=== PATIENT | male | born 1955 | race Caucasian/White ===

== ENCOUNTER → 2017-10-09 | Outpatient (CLI) | payer MEDICARE ==
[~2017-10-09] MED LIST: AMLO5TAB2 PO; ATOR40TA59 PO; CLON1TAB3 PO; DICL75TA PO; IOHEXOL 180 MG/ML 10 ML VIAL. ONE; LISI-338 PO; METO25TA4 PO; OMEP40CA5 PO; PRIM250T PO; methylPREDNISolone ACETATE 40 MG/ML VIAL. ONE; methylPREDNISolone ACETATE 80 MG/ML VIAL. ONE
--- NOTE | 2017-10-09 19:46 | PAIN ---
DATE OF SERVICE: 10/09/2017 INITIAL CONSULTATION FOR PAIN CLINIC CHIEF COMPLAINT: Neck and upper back pain with bilateral shoulder pain. HISTORY OF PRESENT ILLNESS: This is a 62-year-old male who presents with history of pain in the base of the neck, shoulders bilaterally, also some headaches, posterior occipital pain. Pain radiated to mid upper back as well for about 20 years, worse over the last year or so with increased pain with rotational movement of cervical spine, especially extension, better with forward flexion. The patient reports the pain has been becoming worse, radiating into the bilateral upper extremities, causing some numbness in the left hand greater than the right hand, but also dropping some items, having difficulty with fine motor movements of the fingers and thumb. The patient reports no complete loss of function, but having some significant difficulty with fatigability and fine motor movements of hands. The patient reports the pain is tingling with numbness and radiation as described in both upper extremities. It changes during the day, worse as the day goes by. Also, painful in the morning, constant, sharp, stabbing, shooting and aching. The patient reports it wakes him sleep about 4 times a night. He likes to sleep on his left side which makes it worse on the left side. The patient reports it does not affect his bowel or bladder control and does not affect his ability to walk. He has been taking Naprosyn as well as aspirin, both of which only helped for a very small amount. He also had physical therapy and counseling, which helped to some extent, not had any other treatments currently or undergoing any treatments currently. He does some stretching exercises on his own but they had not been helping decrease the pain either. The patient did have an MRI scan of the cervical spine showing post-surgical changes from decompression and fixation C3 through C6, most prominent degenerative changes at C6-C7, posterior disk osteophyte complex, mildly effacing the ventral thecal sac. No significant central spinal canal stenosis identified, but severe bilateral neural foraminal stenosis at C5 through C7. The patient reports disability rate from 0-10, 10 being the worst, is a 7 with family and home responsibilities, social behavior and sexual behavior, 9 with recreation, 8 with self care and 7 with life support activities. PAST MEDICAL HISTORY: Significant for hearing loss, shortness of breath, hypertension, dizziness, diarrhea, hepatitis C, arthritis. PAST SURGICAL HISTORY: Include cervical fusion in 2008, coronary artery bypass in 2005 and left shoulder rotator cuff repair and tonsillectomy as a child. CURRENT MEDICATIONS: Include metoprolol, atorvastatin, amlodipine, lisinopril, primidone, clonazepam, omeprazole, diclofenac. ALLERGIES: The patient is allergic to ORAL STEROIDS which causes stomachache. FAMILY HISTORY: Significant for cancers and heart disease. SOCIAL HISTORY: The patient does not smoke, drinks about 4 drinks a week on average, alcoholic drinks. He is , lives with his spouse, has no children living at home, he is currently retired. REVIEW OF SYSTEMS: The patient's review of systems is positive for those items mentioned in history of present illness. All systems reviewed and otherwise negative. It is complete, full and well documented on the patient's chart. PHYSICAL EXAMINATION: VITAL SIGNS: The patient's blood pressure is 150/97, pulse 65, respirations 16, temperature 98.4 degrees Fahrenheit, height is 6 feet 2 inches, weight is 214 pounds. GENERAL: The patient is awake, alert, oriented, appropriate, very pleasant demeanor. HEENT: Head shows normocephalic, atraumatic. Extraocular movements intact, symmetrical. Oral cavity: Mucous membranes moist and pink. Dentition is intact. NECK: Shows anterior throat supple without palpable lymphadenopathy noted. Swallow reflex symmetrical. CHEST: Shows normal on inspection. Breath sounds are clear to auscultation bilaterally. HEART: Shows S1, S2 clear. No murmurs auscultated. ABDOMEN: Soft, nontender, nondistended. No palpable organomegaly. No rebound or guarding demonstrated. BACK: Shows spine grossly midline, some flattening of the cervical lordotic curvature with well-healed surgical scarring noted in the lumbar distribution. Thoracic kyphosis in normal appearance as is lumbar lordotic curvature. With palpation, cervical paraspinous muscle shows diffuse tenderness throughout the upper, middle, lower distribution of paraspinous muscles, mainly in the lower distribution, but tender bilaterally also in the superior medial and lateral trapezius, but without trigger points or radiation. The patient has good rotational motion of the cervical spine, both laterally greater than 45 degrees as well as full forward flexion. Extension is limited somewhat, not secondary to pain, but secondary to mechanical movement to possibly only 45 degrees off midline. Upper extremities show deep tendon reflexes at 2+ in the biceps and triceps tendons. Motor exam is strong with 5/5 shake table operator strength. Bicep and tricep flexion are symmetrical. Peripheral pulses are 2+ in radial distribution. No peripheral edema is noted. The patient's skin shows normal on appearance, warm and dry, good turgor. No edema. Again, well-healed surgical scar in the cervical distribution only. Shoulder shrug is strong and intact bilaterally without loss of strength or resistance as is abduction of shoulder to 90 degrees bilaterally. IMPRESSION: 1. This is a 62-year-old female with long history of neck, back, upper shoulder pain and bilateral upper extremity pain in a radicular fashion, worse over the past year. 2. MRI of cervical spine as noted. 3. Hypertension. 4. Arthritis. PLAN: Options were discussed with the patient including cervical medical management, physical therapy, interventional technique. He would like to pursue interventional techniques. We discussed a cervical epidural steroid injection using description as well as anatomical models to describe the procedure. Risks were then discussed including, but not limited to bleeding, infection, possibility of epidural hematoma and subsequent neurologic compromise, dural puncture, headaches, spinal cord and/or nerve damage, side effects of steroid medication and poor results regarding pain control. The patient understands and wished to proceed. The patient will return to clinic in approximately 2 weeks for followup. He was counseled to return appointment, activity level and side effects to be aware of. DIAGNOSES: Cervical radiculopathy, cervical degenerative disc disease, spinal stenosis and post-cervical laminectomy syndrome. PROCEDURE: Cervical epidural steroid injection, translaminar approach at the C6-C7 level using C-arm fluoroscopic guidance under sterile prep and drape using local anesthetic. Medication injected a total of 120 mg Depo-Medrol plus 10 mL of preservative-free normal saline, 2 mL Isovue for contrast. CONDITION AT DISCHARGE: Stable. The patient tolerated procedure well, had no complications. LISA RUIZ MD DR: CHAZ/aleks JOB#: [id number] / [id number]
== END | disposition home or self-care (01) ==
LOC: PNCL 12:33
PROVIDERS: ATTEND Anesthesiology
DX: M50.123 Cervical disc disorder at C6-C7 level with radiculopathy (principal); M48.02 Spinal stenosis, cervical region; M96.1 Postlaminectomy syndrome, not elsewhere classified; M19.91 Primary osteoarthritis, unspecified site; I10 Essential (primary) hypertension; H91.90 Unspecified hearing loss, unspecified ear; Z86.19 Personal history of other infectious and parasitic diseases; Z98.890 Other specified postprocedural states; Z95.1 Presence of aortocoronary bypass graft; Z72.89 Other problems related to lifestyle
CPT/HCPCS: 62321; J1030; J1040

== ENCOUNTER → 2017-10-23 | Outpatient (CLI) | payer MEDICARE ==
[~2017-10-23] MED LIST changes: -AMLO5TAB2 PO; -ATOR40TA59 PO; -CLON1TAB3 PO; -DICL75TA PO; +IOHEXOL 180 MG/ML 10 ML VIAL.; -IOHEXOL 180 MG/ML 10 ML VIAL. ONE; -LISI-338 PO; -METO25TA4 PO; -OMEP40CA5 PO; -PRIM250T PO; +methylPREDNISolone ACETATE 40 MG/ML VIAL.; -methylPREDNISolone ACETATE 40 MG/ML VIAL. ONE; +methylPREDNISolone ACETATE 80 MG/ML VIAL.; -methylPREDNISolone ACETATE 80 MG/ML VIAL. ONE
== END | disposition home or self-care (01) ==
LOC: PNCL 12:54
DX: M50.123 Cervical disc disorder at C6-C7 level with radiculopathy (principal); M48.02 Spinal stenosis, cervical region; M96.1 Postlaminectomy syndrome, not elsewhere classified; Z88.8 Allergy status to other drugs, medicaments and biological substances
CPT/HCPCS: 62321; J1030; J1040

== ENCOUNTER → 2017-11-06 | Outpatient (CLI) | payer MEDICARE | END | disposition home or self-care (01) | LOC: PNCL 10:38 | DX: M48.02 Spinal stenosis, cervical region (principal); M50.123 Cervical disc disorder at C6-C7 level with radiculopathy; M96.1 Postlaminectomy syndrome, not elsewhere classified; Z88.8 Allergy status to other drugs, medicaments and biological substances | CPT/HCPCS: 62321; J1030; J1040 ==

== ENCOUNTER → 2017-11-20 | Outpatient (CLI) | payer MEDICARE ==
[~2017-11-20] MED LIST changes: +BUPIVACAINE MPF 0.25% 10 ML VIAL.; -IOHEXOL 180 MG/ML 10 ML VIAL.; -methylPREDNISolone ACETATE 80 MG/ML VIAL.
== END | disposition home or self-care (01) ==
LOC: PNCL 09:01
DX: M79.1 Myalgia (principal); M50.10 Cervical disc disorder with radiculopathy, unspecified cervical region; M48.02 Spinal stenosis, cervical region; Z91.048 Other nonmedicinal substance allergy status
CPT/HCPCS: 20553; J1030; J3490

== ENCOUNTER → 2017-12-12 | Outpatient (CLI) | payer MEDICARE | END | disposition home or self-care (01) | LOC: PNCL 11:16 | DX: M79.1 Myalgia (principal); M50.10 Cervical disc disorder with radiculopathy, unspecified cervical region; M48.02 Spinal stenosis, cervical region; M96.1 Postlaminectomy syndrome, not elsewhere classified; Z91.048 Other nonmedicinal substance allergy status | CPT/HCPCS: 20553; J1030; J3490 ==

== ENCOUNTER → 2018-01-09 | Outpatient (CLI) | payer MEDICARE | END | disposition home or self-care (01) | LOC: PNCL 09:59 | DX: M79.1 Myalgia (principal); M50.10 Cervical disc disorder with radiculopathy, unspecified cervical region; M48.02 Spinal stenosis, cervical region; M96.1 Postlaminectomy syndrome, not elsewhere classified; Z79.899 Other long term (current) drug therapy; Z79.82 Long term (current) use of aspirin; Z98.890 Other specified postprocedural states; Z79.891 Long term (current) use of opiate analgesic | CPT/HCPCS: 20553; J1030; J3490 ==

== ENCOUNTER → 2018-02-25 | Outpatient (CLI) | payer MEDICARE | END | disposition home or self-care (01) | LOC: PNCL 09:36 | DX: M79.1 Myalgia (principal); M50.10 Cervical disc disorder with radiculopathy, unspecified cervical region; M48.02 Spinal stenosis, cervical region; M96.1 Postlaminectomy syndrome, not elsewhere classified; Z88.8 Allergy status to other drugs, medicaments and biological substances | CPT/HCPCS: 20553; J1030; J3490 ==

== ENCOUNTER → 2018-04-08 | Outpatient (CLI) | payer MEDICARE ==
[~2018-04-08] MED LIST changes: -BUPIVACAINE MPF 0.25% 10 ML VIAL.; +BUPIVACAINE MPF 0.25% 30 ML VIAL.
== END | disposition home or self-care (01) ==
LOC: PNCL 08:32
DX: M79.1 Myalgia (principal); M96.1 Postlaminectomy syndrome, not elsewhere classified; M48.02 Spinal stenosis, cervical region; M50.30 Other cervical disc degeneration, unspecified cervical region; Z88.8 Allergy status to other drugs, medicaments and biological substances
CPT/HCPCS: 20553; J1030; J3490

== ENCOUNTER → 2018-05-12 | Outpatient (CLI) | payer MEDICARE ==
[~2018-05-12] MED LIST changes: +BUPIVACAINE MPF 0.25% 10 ML VIAL.; -BUPIVACAINE MPF 0.25% 30 ML VIAL.
== END | disposition home or self-care (01) ==
LOC: PNCL 08:51
DX: M79.1 Myalgia (principal); M96.1 Postlaminectomy syndrome, not elsewhere classified; M50.10 Cervical disc disorder with radiculopathy, unspecified cervical region; M48.02 Spinal stenosis, cervical region; Z88.8 Allergy status to other drugs, medicaments and biological substances
CPT/HCPCS: 20553; J1030; J3490

== ENCOUNTER → 2018-06-05 | Outpatient (CLI) | payer MEDICARE ==
[~2018-06-05] MED LIST changes: +AMLO5TAB2 PO; +ASPI-630 PO; +ATOR40TA59 PO; -BUPIVACAINE MPF 0.25% 10 ML VIAL.; +BUPIVACAINE MPF 0.25% 10 ML VIAL. ONE; +CALC600T4 PO; +CHOL10003 PO; +CLON1TAB4 PO; +CYAN10005 PO; +DICL75TA PO; +FERR325T14 PO; +HYDR-2762 PO; +IOHEXOL 180 MG/ML 10 ML VIAL. ONE; +LIDOCAINE 2% PF 2ML VIAL. ONE; +LISI-338 PO; +MELA3TAB2 PO; +METO25TA4 PO; +MULT-404 PO; +OMEP40CA5 PO; +OXYC-327 PO; +PRIM250T PO; +[UNRECOGNIZED DRUG - OTHER]; -methylPREDNISolone ACETATE 40 MG/ML VIAL.; +methylPREDNISolone ACETATE 40 MG/ML VIAL. ONE; +methylPREDNISolone ACETATE 80 MG/ML VIAL. ONE
--- NOTE | 2018-06-05 14:33 | PAIN ---
DATE OF SERVICE: 06/05/2018 DIAGNOSES: 1. Cervical radiculopathy with cervical spinal stenosis, cervical degenerative disk disease and post-cervical laminectomy syndrome. 2. Low back pain with lumbar spondylosis. 3. Myofascial pain. HISTORY OF PRESENT ILLNESS: The patient is a 63-year-old male who returns for followup status post trigger point injections, both cervical and thoracic as well as lumbar. The patient reports that they helped, but only for a few days. His main complaint is low back at this time. The patient is also requesting more pain medication. We had this discussion on his last visit as well as on the phone and with his that we will be giving him no higher numbers of pain medication as he is requesting. We did try and prescribed a Butrans patch. This was approved, but it is very expensive and he is unable to afford this right now. The patient reports still significant pain significantly in the low back bilaterally, worse with rotation as well as extension of the lumbar spine, some pain with rotation and forward flexion of the cervical spine better with some physical therapy he says he has been doing. He has been doing some working out at his local gym, riding a stationary bicycle using his arms as well. The patient also complains of pain in the left shoulder and left arm. We will have arrangements made to have him see a new orthopedist as he has not seen one in several years regarding his left shoulder and arm. The patient reports his pain in the back is tingling, stabbing, aching, tight, shooting, radiating, becoming more constant, more severe, he rates at 9 on a scale of 10 at its worst, 8 on average, 5 at its least and is an 8 today. The patient was doing some drywall work yesterday, which has exacerbated the pain in his low back and his right leg fairly significantly. The patient reports no new motor or sensory deficits, no new bowel or bladder incontinence. Reports it awakens him from sleep at night, but only about every 6 hours. PHYSICAL EXAMINATION: VITAL SIGNS: The patient's blood pressure 158/102, pulse 76, respirations 16, temperature is 98.0 degrees Fahrenheit, weight is 197 pounds. GENERAL: The patient is awake, alert, oriented, appropriate, very pleasant demeanor. The patient again accompanied by his spouse. HEENT: Shows normocephalic, atraumatic. The patient wears eyeglasses. Extraocular movements intact, symmetrical. Oral cavity: Mucous membranes moist and pink. Dentition is intact. NECK: Shows anterior throat supple without palpable lymphadenopathy noted. Swallow reflex is symmetrical. Posterior cervical paraspinous musculature is symmetrical, but with very significant tenderness in the inferior aspect of the cervical paraspinous musculature with well-healed surgical scar again noted with some trigger point areas of very firm rope-like musculature bilaterally into the superior medial trapezius bilaterally as well. CHEST: Shows normal on inspection. Breath sounds clear to auscultation bilaterally. HEART: Shows S1, S2 clear. No murmurs auscultated. ABDOMEN: Soft, nontender, nondistended. No palpable organomegaly is noted. No rebound or guarding demonstrated. BACK: Shows spine grossly in the midline. The patient's lumbar paraspinous musculature shows symmetrical on inspection, on palpation shows some [id number]-[id number]-[id number] tenderness in the low lumbar distribution only, no tenderness over the sacrum or sacroiliac regions. With rotation, the patient does show some moderate pain with rotation greater than 10 degrees right and left, but with extension, the pain is significantly exacerbated with axial loading and posterior extension of the spine. Forward flexion decreases the pain but still moderate. No radiation is demonstrated. The patient's lower extremities show deep tendon reflexes 1+ in the patellar and tendo calcaneus tendons. Motor exam is strong with dorsiflexion, extension, quadriceps and hamstring flexion rated 5/5 and equal. Peripheral pulses are 1+ posterior tibial bilaterally. No edema is noted. PLAN: Options were discussed with the patient. The patient's old chart was reviewed as his current medication regimen and updated. Current review of systems is updated today as well and we will proceed with bilateral lumbar facet joint injections, L4-L5 and L5-S1. Risks were again discussed including, but not limited to bleeding, infection, possibility of epidural hematoma, subsequent neurological compromise, dural punctures, headaches, spinal cord and/or nerve damage, side effects of steroid medication and extravasation as well as numbness and poor results regarding pain control. The patient understands and wished to proceed. The patient will return to clinic in approximately 2 weeks for followup. He was counseled as to activity levels and side effects to be aware of. Also discussed the patient's medication and we will change to oxycodone from hydrocodone at 7.5 mg up to 3 daily. I discussed this with both he and his spouse. They both understand and agree as she takes care of his medication for him. The patient also strongly cautioned not to drink alcohol with the medication as he does report that he drinks 2-3 beers at least a day and his spouse understands this as well. The patient will follow up in approximately 2 weeks as scheduled. DIAGNOSES: Lumbar spondylosis. PROCEDURES: Bilateral lumbar L4-L5, and L5-S1 facet joint injections using C-arm fluoroscopic guidance under sterile prep and drape using local anesthetic. MEDICATION INJECTED: A total of 120 mg Depo-Medrol plus 4 mL of 0.25% bupivacaine and 2 mL total of Omnipaque for contrast. CONDITION AT DISCHARGE: Stable. The patient tolerated procedure well, had no complications. LISA RUIZ MD DR: CHAZ/aleks JOB#: [id number] / [id number]
== END | disposition home or self-care (01) ==
LOC: PNCL 08:34
PROVIDERS: ATTEND Anesthesiology
DX: M47.817 Spondylosis without myelopathy or radiculopathy, lumbosacral region (principal); M96.1 Postlaminectomy syndrome, not elsewhere classified; M79.1 Myalgia; Z88.8 Allergy status to other drugs, medicaments and biological substances; Z79.82 Long term (current) use of aspirin; Z79.899 Other long term (current) drug therapy
CPT/HCPCS: 64493; 64494; J1030; J1040; J2001; J3490; Q9965

== ENCOUNTER → 2018-06-26 | Outpatient (CLI) | payer MEDICARE ==
[~2018-06-26] MED LIST changes: -AMLO5TAB2 PO; +AMLO5TAB7 PO; -IOHEXOL 180 MG/ML 10 ML VIAL. ONE; -LIDOCAINE 2% PF 2ML VIAL. ONE; -methylPREDNISolone ACETATE 80 MG/ML VIAL. ONE
--- NOTE | 2018-06-26 22:25 | PAIN ---
DATE OF SERVICE: 06/26/2018 PROGRESS NOT FOR PAIN CLINIC DIAGNOSES: 1. Myofascial pain. 2. Cervical radiculopathy with cervical spinal stenosis and cervical degenerative disk disease and post-cervical laminectomy syndrome. 3. Low back pain with lumbar and lumbosacral spondylosis. HISTORY OF PRESENT ILLNESS: The patient is a 63-year-old male who returns for followup status post bilateral lumbar facet injections. The patient reports a significant change and decrease pain in his low back by about 75%-80% overall. The patient reports it is still doing better by about 50% and was significantly decreased by about 80%-90% for 4 days following the injections. The patient reports it is still doing better, but his main complaint today is stiffness and pain in the neck and upper back and shoulders, left greater than right. The patient reports doing better with changing from hydrocodone to oxycodone 7.5 mg up to 3 daily by about 15% improved with the medication change as well. The patient reports still significant pain in the base of the neck and shoulders. The patient's chief complaint is still some low back pain as well. The patient reports the pain in his neck and shoulders is a 9 on a scale of 10 at its worst, 7 on average, 4 at its least and is a 7 today. The patient reports it is aching, sharp, shooting, stabbing, radiating, becoming more constant, more severe in the neck and shoulders bilaterally but reports no new motor or sensory deficits and no new bowel or bladder incontinence or other complaints. PHYSICAL EXAMINATION: VITAL SIGNS: The patient's blood pressure is 148/94, pulse 70, respirations 20, temperature 98.2 degrees Fahrenheit and weight is 195 pounds. GENERAL: The patient is awake, alert, oriented, appropriate and very pleasant demeanor. HEENT: Head shows normocephalic and atraumatic. Extraocular movements are intact and symmetrical. Oral cavity: Mucous membranes moist and pink. Dentition is intact. NECK: Shows anterior throat supple without palpable lymphadenopathy noted. Swallow reflex is symmetrical. CHEST: Shows normal on inspection. Breath sounds clear to auscultation bilaterally. HEART: Shows S1 and S2 clear. No murmurs auscultated. ABDOMEN: Soft, nontender and nondistended. BACK: Shows spine grossly in the midline. Well-healed surgical scar is noted in the cervical distribution with some significant flattening of the cervical lordotic curvature. Some slight increase in thoracic kyphotic curvature as well. With palpation, cervical paraspinous muscle shows significant tenderness bilaterally in the upper, middle and lower distribution of the paraspinous muscles, more tender on the left than the right but without specific radiation. The patient shows good rotational motion of the cervical spine with some limited extension secondary to mechanical limitation not secondary to pain. Right and left lateral rotation is 45 degrees, right and left as well with some pain reported more to the left than the right in the base of the neck and shoulder. The patient also has some moderate tenderness and very firm rope-like musculature in the superior medial trapezius as well as throughout the cervical paraspinous musculature, again worse on the left. EXTREMITIES: Show deep tendon reflexes at 2+ in the biceps and triceps tendons. Motor exam is strong with human resources clerk strength rated at 5/5. Peripheral pulses are 2+ radial distribution. Lower extremities show deep tendon reflexes 1+ in the patellar and tendo-calcaneus tendons. Motor exam is strong with 5/5 dorsiflexion, extension, quadriceps and hamstring flexion. Peripheral pulses are 1+ bilaterally. Options were discussed with the patient. The patient's old chart was reviewed as well as his current medication regimen updated. Current review of systems updated today as well and we will proceed with trigger point injections of the identified musculature in the cervical paraspinous musculature and trapezius musculature as well as the thoracic paraspinous musculature and the left posterior deltoids very firm and tender as well with trigger points. Risks were again discussed including, but not limited to bleeding, infection, possibility of intravascular injection sequelae, spread of local anesthetic and numbness, pneumothorax, side effects of steroid medication and poor results regarding pain control. The patient understands and wished to proceed. The patient will return to the clinic in approximately 2 weeks for followup., was counseled as to return appointment, activity level and side effects to be aware of. The patient also given refill for his Percocet to be filled not prior to July 04 with instructions, side effects to be aware of again. DIAGNOSES: 1. Myofascial pain noted. 2. Lumbar and lumbosacral spondylosis. 3. Post-cervical laminectomy syndrome. PROCEDURE: Trigger point injections, bilateral cervical paraspinous musculature, bilateral trapezius musculature, bilateral thoracic paraspinous musculature and left deltoid musculature under sterile prep and drape using local anesthetic. MEDICATION INJECTED: A total of 12 mL of 0.25% bupivacaine after negative aspiration at each injection site and a total of 40 mg Depo-Medrol. CONDITION AT DISCHARGE: Stable. The patient tolerated the procedure well and had no complications. LISA RUIZ MD DR: CHAZ/aleks JOB#: [id number] / [id number]
== END | disposition home or self-care (01) ==
LOC: PNCL 11:27
PROVIDERS: ATTEND Anesthesiology
DX: M79.1 Myalgia (principal); M47.817 Spondylosis without myelopathy or radiculopathy, lumbosacral region; M48.02 Spinal stenosis, cervical region; M96.1 Postlaminectomy syndrome, not elsewhere classified; M50.10 Cervical disc disorder with radiculopathy, unspecified cervical region; Z88.8 Allergy status to other drugs, medicaments and biological substances
CPT/HCPCS: 20553; J1030; J3490

== ENCOUNTER → 2018-07-24 | Outpatient (CLI) | payer MEDICARE ==
--- NOTE | 2018-07-25 02:04 | PAIN ---
DATE OF SERVICE: 07/24/2018 PROGRESS NOTE FOR PAIN CLINIC DIAGNOSES: 1. Cervical radiculopathy with cervical spinal stenosis and cervical degenerative disk disease with post-cervical laminectomy syndrome. 2. Low back pain with lumbar and lumbosacral spondylosis. 3. Myofascial pain. HISTORY OF PRESENT ILLNESS: The patient is a 63-year-old male who returns for followup status post trigger point injection as well as bilateral facet joint injections in the lumbar spine. The patient reports he was doing very well with each of these only for a short period of time. The facet joints were about 90% better for about 4 days and his low back, but his main complaint has been his neck and left shoulder pain. The patient reports that trigger point injections that we performed on his last visit, which was 06/26/2018 did quite well with about 90% improvement initially, but now is only about 25% improvement. He does have increased pain in his left shoulder radiating into the neck as well as the lateral aspect of the arm and deltoid on the lateral and anterior aspect. The patient reports some tingling in the hand on the left side as well. The patient reports pain is a 9 on a scale of 10 at its worst, 7 on average, is 5 at its least and is a 7 today. The patient reports it is aching, tight, shooting, tingling and becoming more radiating, more constant with use of the left shoulder and arm. The patient reports no new motor or sensory deficit. Low back still with significant pain with standing, walking, better with sitting or lying down. The patient reports no new motor or sensory deficits. The patient reports pain has not generally awakened him from sleep at night in the back, but does in the shoulder and arm. PHYSICAL EXAMINATION: VITAL SIGNS: Today, the patient's blood pressure is 147/91, pulse 69, respirations are 18, temperature 97.9 degrees Fahrenheit. Height is 6 feet 2 inches, weight is 191 pounds. GENERAL: The patient is awake, alert, oriented, appropriate, very pleasant demeanor. HEENT: Head shows normocephalic, atraumatic. Extraocular movements are intact, symmetrical. Oral cavity, mucous membranes are moist and pink. Dentition is intact. NECK: Shows anterior throat supple without palpable lymphadenopathy noted. Swallow reflex symmetrical. Posterior cervical musculature shows a well-healed surgical scar with symmetrical musculature, on palpation shows some significant tenderness in the superior, middle and lower aspect of the left paraspinous musculature with very firm rope-like musculature trigger points in these regions as well as into the left superior and lateral trapezius on the left rhomboid as well as the left lateral deltoid very firm, very tender musculature. Each of these areas are consistent with trigger point areas of musculature. There are only minimal areas on the right trapezius, but is present in the inferior aspect of the cervical paraspinous musculature on the right side as well. None of these have significant radiation with direct palpation. CHEST: Shows normal with inspection. Breath sounds clear to auscultation bilaterally. HEART: Shows S1, S2 clear. ABDOMEN: Soft, nontender, nondistended. No palpable organomegaly. There is no rebound or guarding demonstrated. EXTREMITIES: Upper extremities show deep tendon reflexes 2+ in the biceps, triceps tendons. Motor exam is strong with sales teacher strength rated at 5/5 and equal. Options were discussed with the patient. The patient's old chart was reviewed as his current medication regimen updated. Current review of systems updated today as well. We will proceed with trigger point injections of the bilateral cervical paraspinous musculature, bilateral trapezius musculature, left deltoid musculature under sterile prep and drape. Risks were discussed including, but not limited to, bleeding, infection, possibility of intravascular injection sequelae, side effects of steroid medication, pneumothorax, spread of local anesthetic and numbness as well as poor results regarding pain control. The patient understands and wished to proceed. The patient will return to the clinic in approximately 3 weeks for followup, was counseled on his return appointment, activity level and side effects to be aware of. DIAGNOSIS: Myofascial pain. PROCEDURE: Trigger point injections, left and right cervical paraspinous musculature, bilateral trapezius musculature and left deltoid musculature under sterile prep and drape using local anesthetic. MEDICATION INJECTED: A total of 8 mL of 0.25% of bupivacaine after negative aspiration at each injection site, a total of 40 mg Depo-Medrol. CONDITION AT DISCHARGE: Stable. The patient tolerated the procedure well, had no complications. LISA RUIZ MD DR: CHAZ/aleks JOB#: [id number] / [id number]
== END ==
LOC: PNCL 10:17
PROVIDERS: ATTEND Anesthesiology
DX: M79.18 Myalgia, other site (principal); M50.10 Cervical disc disorder with radiculopathy, unspecified cervical region; M48.02 Spinal stenosis, cervical region
CPT/HCPCS: 20553; J1030; J3490

== ENCOUNTER → 2018-08-25 | Outpatient (CLI) | payer MEDICARE ==
[~2018-08-25] MED LIST changes: +IOHEXOL 180 MG/ML 10 ML VIAL. ONE; +LIDOCAINE 1% PF 2 ML VIAL. ONE; +methylPREDNISolone ACETATE 80 MG/ML VIAL. ONE
--- NOTE | 2018-08-25 21:01 | PAIN ---
DATE OF SERVICE: 08/25/2018 DIAGNOSES: 1. Cervical radiculopathy with cervical spinal stenosis and cervical degenerative disk disease and post-cervical laminectomy syndrome. 2. Low back pain with lumbar spondylosis and lumbosacral spondylosis. 3. Myofascial pain. HISTORY OF PRESENT ILLNESS: A 63-year-old male returns for followup status post trigger point injections. Last visit 07/24/2018, which did very well. The right side of the neck is doing much better about 80% improvement and his left side is only about 50% as well as the left shoulder, trapezius, but still doing better. The patient reports his main complaint today is low back pain, has significant pain across the low back bilaterally, left essentially equal to right. It is sharp, dull, tight, shooting, tingling, stabbing, severe in quality without radiation to the lower extremities currently. The patient reports his neck is doing much better as low back is feeling much more noticeable especially with increased activity. He has been painting as well as raking leaves over the last couple of weeks. The patient reports pain is a 9 on a scale of 10 at its worst, 8 on average, 5 at its least and is an 8 today. The patient reports no new motor or sensory deficits, no new bowel or bladder incontinence or other complaints, sporadically awakens him from sleep, but basically because of his left neck and shoulder. The patient reports he was increasing now his activities again raking, doing yardwork with much greater ease and comfort, walking greater distances since the last visit as well. PHYSICAL EXAMINATION: VITAL SIGNS: Blood pressure 136/88, pulse 79, respirations are 16, temperature 97.9 degrees Fahrenheit, and weight is 199 pounds. GENERAL: The patient is awake, alert and appropriate, very pleasant demeanor. The patient accompanied by his spouse. HEENT: Shows normocephalic, atraumatic. Extraocular movements intact and symmetrical. The patient is wearing eyeglasses. Oral cavity: Mucous membranes moist and pink. Dentition is intact. NECK: Shows anterior throat supple without palpable lymphadenopathy noted. Swallow reflex symmetrical. CHEST: Shows normal on inspection. Breath sounds are clear to auscultation bilaterally. HEART: Shows S1, S2 clear. No murmurs auscultated. ABDOMEN: Soft, nontender, nondistended. No palpable organomegaly is noted. BACK: Shows spine grossly in the midline with some minor increase in thoracic kyphosis and minor flattening of lumbar lordotic curvature. Lumbar paraspinous muscle shows symmetrical on inspection, on palpation shows some moderate tenderness, but only diffusely in the low lumbar distribution. The patient's neck shows some moderate tenderness as well in the trapezius as well as the lateral trapezius and inferior cervical paraspinous musculature on the left only. Right side is supple without significant tenderness. The patient's lower extremities show deep tendon reflexes at 2+ in the patellar, 1+ tendo calcaneus tendons. Motor exam is 5/5 with dorsiflexion, extension and equal. Peripheral pulses are 1+ posterior tibial. No peripheral edema is noted bilaterally. The patient does show some increased pain with extension of the lumbar spine. Axial loading better with forward flexion at 45 degrees, right and left lateral rotation at 10 degrees is painful, more on the right than the left. Options were discussed with the patient. The patient's old chart was reviewed as his current medication regimen updated. Current review of systems updated today as well. We will proceed with bilateral L4-L5 and L5-S1 facet joint injection today with fluoroscopic guidance. Risks were again discussed including, but not limited to bleeding, infection, possibility of epidural hematoma, subsequent neurological compromise, dural puncture, headaches, spinal cord and/or nerve damage, side effects of steroid medication and poor results regarding pain control. The patient understands and wished to proceed. The patient will return to clinic in approximately 2 weeks for followup, was counseled on return appointment, activity level and side effects to be aware of. We discussed potential for radiofrequency ablation as this is the second set of facet diagnostic blocks as he had similar results from the first which was in May of this year, about 90% improvement for about 5 days. The patient will see how this responds today and we will proceed from there. DIAGNOSIS: Lumbar and lumbosacral spondylosis. PROCEDURE: Bilateral L4-L5 and L5-S1 facet joint injections under C-arm fluoroscopic guidance using sterile prep and drape using local anesthetic. MEDICATION INJECTED: A total of 4 mL of 0.25% bupivacaine, 2 mL of Isovue for contrast and 120 mg total Depo-Medrol. CONDITION ON DISCHARGE: Stable. The patient tolerated the procedure well and there were no complications. LISA RUIZ MD DR: David JOB#: [id number] / [id number]
== END | disposition home or self-care (01) ==
LOC: PNCL 09:55
PROVIDERS: ATTEND Anesthesiology
DX: M47.817 Spondylosis without myelopathy or radiculopathy, lumbosacral region (principal); M48.02 Spinal stenosis, cervical region; M96.1 Postlaminectomy syndrome, not elsewhere classified; M50.10 Cervical disc disorder with radiculopathy, unspecified cervical region; M79.18 Myalgia, other site; Z88.8 Allergy status to other drugs, medicaments and biological substances
CPT/HCPCS: 64493; 64494; J1030; J1040; J3490; Q9965

== ENCOUNTER → 2018-10-02 | Outpatient (CLI) | payer MEDICARE ==
[~2018-10-02] MED LIST changes: +CLON1TAB11 PO; -CLON1TAB4 PO; -HYDR-2762 PO; +HYDR-2765 PO; -LIDOCAINE 1% PF 2 ML VIAL. ONE; +LIDOCAINE 2% PF Vial for OR 5 ML VIAL. ONE; -OXYC-327 PO; +OXYC1TAB19 PO
--- NOTE | 2018-10-02 13:35 | PAIN ---
DATE OF SERVICE: 10/02/2018 DIAGNOSES: 1. Lumbar and lumbosacral spondylosis with low back pain. 2. Cervical radiculopathy with cervical spinal stenosis and degenerative disk disease, post-cervical laminectomy syndrome. 3. Myofascial pain. HISTORY OF PRESENT ILLNESS: The patient is a 63-year-old male who returns for a followup status post lumbar facet joint injections, bilateral L4-L5 and L5-S1, on 08/25/2018. It is notable that the patient reports he did well after the injections about 80-90% improvement following the injections for about 1 week. The pain began to return after that time. He had rescheduled his last appointment. He called and discussed this with our staff that he was watching a football game and was going to be drinking a lot of beer that night and did not want to come in the next morning early because of those activities. This was well documented on his chart as well. The patient returns today and is unhappy that he is not having radiofrequency procedure done today. We explained to him in detail that this was because we could not get him in after the last injection. He rescheduled his appointment and today will be an office visit and evaluation once again. The patient was irate, was throwing his coat in the room and raising his voice to the staff initially. The patient did calm down after this was explained to him several times by myself as well as our nursing staff that we cannot do radiofrequency ablation for him today as we are unsure of his level of improvement since he did not follow up after his last injections as scheduled. The patient then calmed down and seemed to understand. The patient also requests multiple times for oxycodone and hydrocodone. I refused to write these for him as he has had difficulty with alcoholic addiction in the past, although the patient's is with him, and reports that he is not abusing it at this time. He, nevertheless, has the most recently documented time of drinking during a football game and subsequently cancelling his next morning appointment and I expressed to him the fear of him taking controlled substances with alcohol. The patient adamantly denies this, of course, and we discussed this in further detail. We will prescribe him tramadol only and nothing greater than that or different than that at this time, although he reports it does not work well for him. I reported that would not feel comfortable prescribing anything else for him because of his drinking history and his addictive personality. The patient acknowledges this, but we asked for a urine screen today as well. The patient reported that he could not empty his bladder and adamantly refused this, then told him that he would receive no tramadol either and no control substances whatsoever without a urine sample today. The patient was not happy with this, but voiced understanding as did his spouse. On further clinical note, the patient reports he did do very well after the last injections again for about 1 week. The patient reports his pain returned fairly significantly, though in the low back across bilaterally, right equal to left as a 10 on a scale of 10 at its worst, 9 on average, 7 at its least and is a 10 today. The patient reports it is stabbing, sharp, shooting, severe without specific radiation in the lower extremities, however. Worse with standing, walking, also awakens him from sleep on and off, but not every night. The patient reports no new motor or sensory deficits, no new bowel or bladder incontinence. PHYSICAL EXAMINATION: VITAL SIGNS: The patient's blood pressure is 143/101, pulse 93, respirations are 22, temperature is 98.0 degrees Fahrenheit, 6 feet 1 inch, weight is 196 pounds. GENERAL: The patient is awake, alert, oriented, appropriate. Again, somewhat upset demeanor today initially, but calming with further explanations. HEENT: Shows normocephalic, atraumatic. The patient is wearing eyeglasses. Extraocular movements are intact and symmetrical. Oral cavity shows mucous membranes moist and pink. Dentition is intact. NECK: Shows anterior throat supple without palpable lymphadenopathy noted. Swallow reflex symmetrical. CHEST: Shows normal with inspection. Breath sounds are clear to auscultation bilaterally. HEART: Shows S1, S2 clear. No murmurs auscultated. ABDOMEN: Soft, nontender, nondistended. No rebound or guarding demonstrated. MUSCULOSKELETAL: Back shows spine grossly in the midline, slight exaggeration of thoracic kyphosis and minor flattening of lumbar lordotic curvature. Lumbar paraspinous musculature shows roughly symmetrical on inspection; with palpation, some moderate tenderness in the inferior aspect of the lumbar spine bilaterally. The patient shows increased pain with extension of the lumbar spine without radiation, but significant tenderness even at 10 degrees posterior extension as well as right and left lateral rotation at 10 degrees, again increased pain, not as severe as extension, but similar. The patient's lower extremities show deep tendon reflexes 2+ in the patellar, 1+ tendo-calcaneus tendons. Motor exam is strong with 5/5 dorsiflexion and extension. Peripheral pulses are 1+ posterior tibial. No peripheral edema is noted bilaterally. PLAN: Options were discussed with the patient. The patient's old chart was reviewed as his current medication regimen and updated. Current review of systems updated today as well. We will proceed with bilateral L4-L5 and L5-S1 facet joint injections today as the patient would like to have something done due to his significant pain. Risks were discussed including, but not limited to, bleeding, infection, possibility of epidural hematoma and subsequent neurological compromise, dural puncture, headaches, spinal cord and/or nerve damage, side effects of steroid medication, spread of local anesthetic and numbness, exposure to fluoroscopy and poor results regarding pain control. The patient understands and wished to proceed. The patient will return to the clinic in approximately 2 weeks for a followup. We did discuss importance of following up. We asked him to call in about 3 days with a progress report at that time so we can document improvement if he receives as similar as last time on repeat diagnostic blocks today. We may schedule for radiofrequency in the near future as well. The patient is interested in pursuing this. We will have him followup as scheduled. DIAGNOSES: Lumbar spondylosis and lumbosacral spondylosis. PROCEDURE: Bilateral L4-L5 and L5-S1 facet joint injections using C-arm fluoroscopic guidance under sterile prep and drape using local anesthetic. MEDICATIONS INJECTED: A total of 4 mL of 0.25% bupivacaine, 2 mL of Isovue for contrast and 120 mg Depo-Medrol total. CONDITION AT DISCHARGE: Stable. The patient tolerated procedure well, had no complications. LISA RUIZ MD DR: CHAZ/aleks JOB#: [id number] / [id number]
== END | disposition home or self-care (01) ==
LOC: PNCL 11:19
PROVIDERS: ATTEND Anesthesiology
DX: M47.817 Spondylosis without myelopathy or radiculopathy, lumbosacral region (principal); M96.1 Postlaminectomy syndrome, not elsewhere classified; M48.02 Spinal stenosis, cervical region; M50.10 Cervical disc disorder with radiculopathy, unspecified cervical region; M79.18 Myalgia, other site; Z88.8 Allergy status to other drugs, medicaments and biological substances
CPT/HCPCS: 64493; 64494; J1030; J1040; J2001; J3490; Q9965

== ENCOUNTER → 2019-02-13 | Outpatient (CLI) | payer MEDICARE ==
[~2019-02-13] MED LIST changes: +AMLO5TAB10 PO; -AMLO5TAB7 PO; -BUPIVACAINE MPF 0.25% 10 ML VIAL. ONE; +DOCU-109 PO; +GABA600T7 PO; -IOHEXOL 180 MG/ML 10 ML VIAL. ONE; -LIDOCAINE 2% PF Vial for OR 5 ML VIAL. ONE; +MELO15TA23 PO; +PRIM250T28 PO; -methylPREDNISolone ACETATE 40 MG/ML VIAL. ONE; -methylPREDNISolone ACETATE 80 MG/ML VIAL. ONE
[2019-02-13 13:30] LABS: BASO % 1 % (0-3); EOS # 0.1 x10^3/uL (0.0-0.7); EOS % 2 % (0-3); HEMATOCRIT 38.5 % (39.0-53.0); HEMOGLOBIN 13.1 g/dL (13.0-17.5); LYMPH # 0.9 x10^3/uL (1.0-4.8); LYMPH % 14 % (24-48); MEAN CORPUSCULAR HEMOGLOBIN 29 pg (25-35); MEAN CORPUSCULAR HGB CONC 34 g/dL (31-37); MEAN CORPUSCULAR VOLUME 84 fL (79-100); MONO # 0.9 x10^3/uL (0.0-1.1); MONO % 13 % (0-9); NEUT # 4.7 x10^3uL (1.8-7.7); NEUT % 71 % (31-73); PLATELET COUNT 262 x10^3/uL (140-400); RED BLOOD COUNT 4.57 x10^6/uL (4.30-5.70); RED CELL DISTRIBUTION WIDTH 13.6 % (11.5-14.5); WHITE BLOOD COUNT 6.6 x10^3/uL (4.0-11.0)
[2019-02-13 14:19] LABS: ALBUMIN 3.6 g/dL (3.4-5.0); CALCIUM 9.2 mg/dL (8.5-10.1); CREATININE 1.1 mg/dL (0.7-1.3); GFR 67.2; POTASSIUM 4.5 mmol/L (3.5-5.1); TOTAL BILIRUBIN 0.2 mg/dL (0.2-1.0); TOTAL PROTEIN 7.3 g/dL (6.4-8.2)
== END | disposition home or self-care (01) ==
LOC: SURGPAT 12:47
PROVIDERS: ATTEND Neurological Surgery
DX: Z01.818 Encounter for other preprocedural examination (principal); M51.16 Intervertebral disc disorders with radiculopathy, lumbar region; M43.16 Spondylolisthesis, lumbar region
CPT/HCPCS: 36415; 80053; 85025; 87641

== ENCOUNTER 2019-02-20 07:15 | Observation (INO) | payer MEDICARE ==
[~2019-02-20] VITALS: Ht 185.4 cm; Wt 87.5 kg
[~2019-02-20 07:15] MED LIST changes: +BACITRACIN 50,000 UNIT in IV NORMAL SALINE 1000ML BAG 1,000 ML IRR ONE; +BUPIVAC MPF-EPI 0.5%-1:200000 30 ML VIAL. ONE; -DOCU-109 PO; +GELATIN SPONGE SIZE 100. ONE; +IV RINGERS,LACTATED 1000ML 1,000 ML IV SCH; +KETOROLAC 60 MG/2 ML INJ FOR OR. ONE; +LIDOCAINE 1% PF 2 ML VIAL. ID PRN; +ONDANSETRON PF 4 MG/2 ML VIAL. IV PRN; +PROCHLORPERAZINE 10 MG/2 ML VIAL. IV PRN; +PROPOFOL 100 ML IV ONE; +THROMBIN TOPICAL 20,000 UNIT SPRAY.SYRN KIT TP ONE; +ceFAZolin 2GM PREMIX 2 GM/50 ML BAG IV ONE; +fentaNYL PF VIAL 100 MCG/2 ML VIAL IV PRN
[2019-02-20] MEDS ORDERED: GLYCOPYRROLATE 1 MG/5 ML VIAL. ONE (08:12)
[2019-02-20] MEDS ORDERED: NEOSTIGMINE METHYLSULFATE 5 MG/5 ML SYRINGE. ONE (08:12)
[2019-02-20] MEDS ORDERED: REMIFENTANIL 1 MG VIAL. IV ONE ×2 (08:12→10:37)
[2019-02-20] MEDS ORDERED: ROCURONIUM 50 MG/5 ML VIAL. ONE (08:12)
[2019-02-20] MEDS ORDERED: fentaNYL PF VIAL 100 MCG/2 ML VIAL ONE ×3 (08:12→11:43)
[2019-02-20] MEDS ORDERED: MIDAZOLAM HCL/PF 2 MG/2 ML VIAL. ONE (08:12)
[2019-02-20] MEDS ORDERED: ONDANSETRON PF 4 MG/2 ML VIAL. ONE (08:13)
[2019-02-20] MEDS ORDERED: PHENYLEPHRINE 10 MG/ML VIAL. ONE (08:13)
[2019-02-20] MEDS ORDERED: LIDOCAINE 2% PF 5 ML VIAL. ONE (08:13)
[2019-02-20] MEDS ORDERED: PROPOFOL 20 ML IV ONE (08:13)
[2019-02-20] MEDS ORDERED: DEXAMETHASONE SOD PHOS 20 MG/5 ML VIAL. ONE (08:13)
[2019-02-20] MEDS: GABAPENTIN 300 MG CAPSULE. PO SCH (09:00)
[2019-02-20] MEDS ORDERED: DESFLURANE > 120 MINUTES IH ONE (10:07)
--- NOTE | 2019-02-20 11:10 | DISCH ---
DISCHARGE INSTRUCTIONS Condition on Discharge Condition on Discharge: Stable Activity After Discharge Activity Instructions for Disc: Resume previous activity, Activity as tolerated Other activity instructions: no driving for a week Bathing Instructions: Shower-keep dressing dry Lifting Instructions after Dis: No heavy lifting, No pulling or pushing, Do not lift >10 pounds Diet after Discharge Additional Diet Restrictions: resume home diet Wound Incision Care Wound/Incision Care: Ice to area for comfort Other wound/incision instructi: may remove dressing in 48 hours if dry then may shower, no soaking Contacting the after DC Call your doctor for: Concerns you may have Follow-Up Follow up with: Dr. Juarez's nurse in 2 weeks [phone] KULWANT JUAREZ MD February 20, 2019 11:10
[2019-02-20] MEDS ORDERED: DOCU-109 PO (11:11)
[2019-02-20] MEDS: fentaNYL PF VIAL 100 MCG/2 ML VIAL IV PRN ×4 (11:27→11:59)
[2019-02-20] MEDS ORDERED: MORPHINE SULFATE 2 MG/ML VIAL. ONE ×2 (11:39→12:16)
[2019-02-20] MEDS: MORPHINE SULFATE 2 MG/ML VIAL. IV PRN ×4 (11:41→12:25)
[2019-02-20] MEDS ORDERED: HYDROmorphone 2 MG/ML VIAL ONE (11:56)
[2019-02-20] MEDS: HYDROmorphone 2 MG/ML VIAL IV PRN ×4 (12:01→12:36)
[2019-02-20] MEDS ORDERED: HYDROcodone/APAP 7.5/325MG 1 TAB TABLET ONE (12:11)
[2019-02-20] MEDS: HYDROcodone/APAP 7.5/325MG 1 TAB TABLET PO PRN ×3 (12:12→21:48)
--- NOTE | 2019-02-20 14:19 | OP ---
DATE OF SURGERY: 02/20/2019 PREOPERATIVE DIAGNOSIS: Herniated lumbar disc L4-L5 with grade 1 spondylolisthesis L4-L5 with right lumbar radiculopathy. POSTOPERATIVE DIAGNOSIS: Herniated lumbar disc L4-L5 with grade 1 spondylolisthesis L4-L5 with right lumbar radiculopathy. OPERATION PERFORMED: Hemilaminotomy with decompression of the right L5 and L4 nerve root with microdiskectomy L4-L5 right. The operation was done with EMG monitoring, SSEP monitoring, fluoroscopy, microscopic dissection. SURGEON: Edward Juarez M.D. MARKETING COMMUNICATIONS COORDINATOR: ALEX Fragoso, assisted with the surgery. She assisted with exposure, the microdecompression as well as the closure. OPERATIVE INDICATIONS: The patient is a very pleasant 63-year-old man, who developed intractable back and right leg pain, which failed conservative measures. On imaging studies, he had a small grade 1 anterolisthesis at L4-L5 combined with a superiorly herniated disc on the right side which was compressing the right L5 root and I recommended lumbar microsurgery. I spoke with him about the surgery, the risks, technique and the expected postoperative course and he wished to go ahead. DESCRIPTION OF PROCEDURE: Following general endotracheal anesthesia, the patient was positioned prone on the Rusty table. Lumbar region was prepped and draped in the standard fashion. KARLENE hose and AV impulse boots were applied for DVT prophylaxis. Microscope was draped. Fluoroscopy was draped and brought into the field. Monitoring was established. Ancef 2 grams was given less than 1 hour prior to initiation of the surgery. Using fluoroscopic guidance, a midline incision was made directly over the L4-L5 interspace. I placed a microdisk retractor and brought in the microscope and using the high speed air drill, I burred down after confirming my position fluoroscopically, a generous hemilaminotomy and then trimmed away thickened ligamentum flavum. The L5 root was compressed by posterior disc as well as thickened tissue on the medial side of the pedicle superiorly and I drilled this away and partially drilled the medial side of the pedicle to fully decompress the root, which moved quickly laterally. Moving superiorly, I carefully performed a microdiscectomy and the L4 root interestingly had a late takeoff and the pedicle of L4 on the right was somewhat lower than average and the root was immediately visualized and as I worked and trimmed disc material away from the disc space, the root moved inferiorly slightly and became very well decompressed. I did follow the root slightly laterally, there were a few bands and the L4-L5 disc was bulging superolaterally and felt in this location to be irritating the L4 root and so I worked and I assured myself that L4 root was free as well as the L5 root. Following a discectomy, then I irrigated with antibiotic solution and I explored carefully. There was some chronic disc material superior to the disc space at L4-L5, which was nestled in position as a pseudoherniation related to the small spondylolisthesis. All in all, the region was very well decompressed. I irrigated copiously with antibiotic solution, removed the retractor, obtained perfect hemostasis and then I closed the wound in layers with absorbable suture. The skin was closed with 4-0 subcuticular stitch. The operation went very well and the patient awakened uneventfully. I was quite pleased with the surgery. EDWARD JUAREZ MD DR: TD/aleks JOB#: [id number] / [id number] BERNARD
[2019-02-20 15:05] VITALS: BP 134/92
[2019-02-20 16:00] VITALS: BP 140/86
--- NOTE | 2019-02-20 16:02 | NUR ---
Patient arrived to the unit around 1505 in a wheelchair from PACU. His IV is saline locked in his left thumb and patent. He is refusing KARLENE lenine and SCDs at this time. Complaining of a scratchy left eye which was noted downstairs and SCRATCHER states that the patients and doctors are aware. Vital signs stable. Having urinary retention at this time and will monitor. Up with stand by assist and the patient has a wide based gait upon assessment.
--- NOTE | 2019-02-20 16:48 | NUR ---
Upon admission to the unit ELECTROPHYSIOLOGY TECHNOLOGIST stated the patient had 866ml of urine in his bladder per bladder scan. Once he was admitted to the unit the patient was able to void small amounts but still felt full. Bladder scan done with showed 767 ml showing on scanner. Straight cath performed per protocol and 800ml of clear yellow urine came out. Will continue to monitor.
[2019-02-20] MEDS: clonazePAM 1 MG TABLET PO SCH ×3 (16:51→21:48)
[2019-02-20 17:00] VITALS: BP 132/94
[2019-02-20 18:01] VITALS: BP 136/88
--- NOTE | 2019-02-20 19:16 | NUR ---
Patient unable to void, Bladder scan revealed 669 cc. Informed Patient of need to straight cath him. Patient agreed. Straight catheter placed using sterile technique and obtained 600 cc clear urine. Patient tolerated procedure without any complaints.
[2019-02-20] MEDS ORDERED: ATORVASTATIN CALCIUM 40 MG TABLET. PO SCH (21:00)
[2019-02-20 21:45] VITALS: BP 152/99
[2019-02-20] MEDS: DOCUSATE SODIUM 100 MG CAPSULE. PO SCH (21:48)
[2019-02-20] MEDS: PRIMIDONE 250 MG TABLET PO SCH (21:49)
[2019-02-21] MEDS: HYDROcodone/APAP 7.5/325MG 1 TAB TABLET PO PRN ×2 (02:04→06:15)
[2019-02-21 02:05] VITALS: BP 128/87
[2019-02-21 06:13] VITALS: BP 152/90
[2019-02-21] MEDS ORDERED: PANTOPRAZOLE 40 MG TABLET.DR. PO SCH (07:30)
[2019-02-21] MEDS: PRIMIDONE 250 MG TABLET PO SCH (07:57)
[2019-02-21 07:58] VITALS: BP 143/94
[2019-02-21] MEDS: GABAPENTIN 300 MG CAPSULE. PO SCH (07:58)
[2019-02-21] MEDS: clonazePAM 1 MG TABLET PO SCH (07:58)
[2019-02-21 08:02] VITALS: BP 143/94
[2019-02-21] MEDS: DOCUSATE SODIUM 100 MG CAPSULE. PO SCH (08:06)
--- NOTE | 2019-02-21 08:15 | NUR ---
Ambulating to bathroom and voiding without difficulty. Anxious to go home. Waiting for to arrive. Cont. monitor.
[2019-02-21] MEDS ORDERED: FERROUS SULFATE 325 MG TABLET. PO SCH (09:00)
[2019-02-21] MEDS ORDERED: LISINOPRIL 10 MG TABLET PO SCH (09:00)
[2019-02-21] MEDS ORDERED: METOPROLOL TART IMMED RELEASE 25 MG TABLET. PO SCH (09:00)
[2019-02-21] MEDS ORDERED: MELOXICAM 7.5 MG TABLET PO SCH (09:00)
[2019-02-21] MEDS ORDERED: ASPIRIN CHEWABLE 81 MG TABLET. PO SCH (09:00)
[2019-02-21] MEDS ORDERED: amLODIPine BESYLATE 5 MG TABLET PO SCH (09:00)
[2019-02-21] MEDS ORDERED: CALCIUM CARBONATE 500 MG TABLET PO SCH (09:00)
--- NOTE | 2019-02-21 09:20 | NUR ---
Anxious to go home. arrived and discharge instruction given in PACU were reinforced. Both pt and verbalized understanding. Dc/d home.
--- NOTE | 2019-02-22 14:40 | PREOP HP ---
DATE OF SERVICE: 02/20/2019. ANTICIPATED DATE OF SURGERY: 02/20/2019 HISTORY OF PRESENT ILLNESS: The patient is a pleasant 63-year-old who in 2012 underwent a cervical laminectomy for cervical myelopathy. He did well from that surgery. His current problem is right-sided low back pain and pain which radiates to the right posterolateral thigh and leg. He notes a numbness which can radiate to the top of his right foot. He describes the pain as shooting and stabbing pain. It began 3 months ago. This started spontaneously. He said he stretched and felt a pop and then the pain started. He rates his pain currently as a 6/10. Walking markedly increases his pain. Heat helps. He is taking oxycodone 2 per day. He has been through physical therapy, which ended last week without significant benefit. He has been done for 6 weeks. He also had epidural steroid injections in October at and they were not beneficial. PAST MEDICAL HISTORY: Head or neck injury, heart disease, hypertension, arthritis, headache, heart trouble and disease, and hepatitis. PAST SURGICAL HISTORY: A quadruple bypass in 2005, left shoulder surgery in 2007 and cervical laminectomy and fusion, C3-C6 in May 2013. FAMILY HISTORY: Cancer, heart problems or disease, hypertension, spine problems, migraine headaches, and heart attack at early age. SOCIAL HISTORY: Retired. Quit smoking 5 years ago. Drinks 1-2 times per week. ALLERGIES: No known drug allergies. CURRENT MEDICATIONS: Include lisinopril, primidone, clonazepam, omeprazole, iron, multivitamins, aspirin, oxycodone, atorvastatin, amlodipine, metoprolol, meloxicam, topiramate, gabapentin. REVIEW OF SYSTEMS: A 12-point review of systems was obtained and is noncontributory, except for that mentioned above. PHYSICAL EXAMINATION: NEUROSURGERY EXAMINATION: GENERAL APPEARANCE: Alert, pleasant, in no acute distress. HEAD: Normocephalic and atraumatic. SKIN: Warm and dry, well-healed cervical incision. MUSCULOSKELETAL: Lumbar paraspinal muscle bulk is normal, restricted range of motion of the lumbar spine, [id number] tenderness of the lower lumbar spine, normal range of motion of the lower extremities bilaterally. EXTREMITIES: No clubbing, cyanosis or edema. NEUROLOGIC: Alert and oriented x3; normal recent and remote memory; strength 5/5 in bilateral lower extremities; sensory was intact to light touch in bilateral lower extremities, except for decrease in the dorsum of his right foot; reflexes were present and symmetric in the lower extremities bilaterally; positive straight leg raising on the right, relieved by Lasegue's maneuver; negative straight leg raising on the left, and normal gait. IMAGING: I reviewed the lumbar MRI scan. On that study, he has developed a 5-mm anterolisthesis of L4 and L5 and in addition, has a herniated large central right disc at that level. ASSESSMENT/ PLAN: He has a right-sided disc herniation with nerve root compression at L4-L5. He has significant right lumbar radiculopathy. He does have a spondylolisthesis. However, I feel that microsurgical operation at this level can be performed without exacerbating that problem. We did discuss this with him. We spoke about the surgery, including the technique and the risks and the expected postoperative course, he understands. He would like to go ahead. We will make the arrangements. KULWANT JUAREZ MD DR: TD/aleks JOB#: [id number] / [id number] BERNARD
--- NOTE | 2019-02-23 17:07 | PATHOLOGY ---
[facility] Accession Number: [id number] . 01 Material submitted: . vertebral column - LUMBAR DISC AND DECOMPRESSION . 01 Clinical history: . Lumbar herniated disc and radiculopathy, spondylolisthesis . 02 Diagnosis: Segments of cartilaginous and fibroadipose tissue, lumbar disc and decompression: - Degenerative changes of cartilaginous tissue. ([facility] 02/23/2019) P/02/23/2019 . 02 Comment: There is no evidence of an acute inflammatory process or malignancy. ([facility] 02/23/2019) . 02 Electronically signed: . Eliazar Dent MD, Pathologist NPI- [id number] . 01 Gross description: . Received in formalin labeled "Harshil, Rahul, lumbar disc and decompression," are several pieces of glistening, fibrous tissue measuring 5.3 x 3.9 x 2.2 cm in aggregate dimensions, containing small fragments of possible bone. The tissue submitted representatively in cassette A1, following decalcification. ([facility]; 02/20/2019) TOB/TOB . 02 Pathologist provided ICD-10: M51.26, M54.10, M43.10 . 02 CPT . 543857, [id number] Specimen Comment: A courtesy copy of this report has been sent to Specimen Comment: [phone], . Specimen Comment: Report sent to / DR CRANE Performed at: 01 [facility] [address], [place] [id number] MD Henry Domínguez MD Phone: [phone] Performed at: 02 [facility] [id number] MD Eliazar Dent MD Phone: [phone]
== END 2019-02-21 09:20 | disposition home or self-care (01) ==
LOC: SURG 07:15 → 4 SOUTHEST 15:17
PROVIDERS: ADMIT Neurological Surgery; ATTEND Neurological Surgery
DX: M51.16 Intervertebral disc disorders with radiculopathy, lumbar region (principal); M43.16 Spondylolisthesis, lumbar region; I10 Essential (primary) hypertension; R51 Headache; K75.9 Inflammatory liver disease, unspecified; Z87.891 Personal history of nicotine dependence; Z82.49 Family history of ischemic heart disease and other diseases of the circulatory system
CPT/HCPCS: 36415; 63047; 63048; 76000; 80051; 97110; 97116; 97162; 97530; G0378; G0379; G8978; G8979; J1100; J1170; J1885; J2001; J2250; J2270; J2405; J2704; J2710; J3010; J3490; J7030; 88304; 88311; A7015; J0696; J7120

== ENCOUNTER → 2019-05-11 | Outpatient (CLI) | payer MEDICARE ==
[~2019-05-11] MED LIST changes: -BACITRACIN 50,000 UNIT in IV NORMAL SALINE 1000ML BAG 1,000 ML IRR ONE; -BUPIVAC MPF-EPI 0.5%-1:200000 30 ML VIAL. ONE; +DOCU-109 PO; -GELATIN SPONGE SIZE 100. ONE; -IV RINGERS,LACTATED 1000ML 1,000 ML IV SCH; -KETOROLAC 60 MG/2 ML INJ FOR OR. ONE; -LIDOCAINE 1% PF 2 ML VIAL. ID PRN; -ONDANSETRON PF 4 MG/2 ML VIAL. IV PRN; -PROCHLORPERAZINE 10 MG/2 ML VIAL. IV PRN; -PROPOFOL 100 ML IV ONE; -THROMBIN TOPICAL 20,000 UNIT SPRAY.SYRN KIT TP ONE; -ceFAZolin 2GM PREMIX 2 GM/50 ML BAG IV ONE; -fentaNYL PF VIAL 100 MCG/2 ML VIAL IV PRN
[2019-05-11 13:20] LABS: BASO % 1 % (0-3); EOS # 0.2 x10^3/uL (0.0-0.7); EOS % 3 % (0-3); HEMATOCRIT 41.5 % (39.0-53.0); HEMOGLOBIN 13.8 g/dL (13.0-17.5); LYMPH # 1.6 x10^3/uL (1.0-4.8); LYMPH % 30 % (24-48); MEAN CORPUSCULAR HEMOGLOBIN 29 pg (25-35); MEAN CORPUSCULAR HGB CONC 33 g/dL (31-37); MEAN CORPUSCULAR VOLUME 86 fL (79-100); MONO # 0.6 x10^3/uL (0.0-1.1); MONO % 11 % (0-9); NEUT # 2.9 x10^3/uL (1.8-7.7); NEUT % 55 % (31-73); PLATELET COUNT 315 x10^3/uL (140-400); RED BLOOD COUNT 4.84 x10^6/uL (4.30-5.70); RED CELL DISTRIBUTION WIDTH 14.4 % (11.5-14.5); WHITE BLOOD COUNT 5.2 x10^3/uL (4.0-11.0)
--- NOTE | 2019-05-11 13:21 | EKG ---
[facility] [address] [place] [address] Test Date: 2019-05-11 Test Time: 13:18:56 Pat Name: ELIJAH OZUNA Department: Room: Gender: M Gliding Pilot Instructor: : [id number] Requested By: KULWANT JUAREZ Order Number: [id number] Reading MD: Nick Keating MD Measurements Intervals [place] Rate: 57 P: -1 NH: 180 QRS: 18 QRSD: 102 T: 17 QT: 410 QTc: 402 Interpretive Statements SINUS RHYTHM Electronically Signed On 05-12-2019 11:43:15 CDT by Nick Keating MD
[2019-05-11 13:33] LABS: PROTHROMBIN TIME PATIENT 12.4 SEC (11.7-14.0)
[2019-05-11 13:42] LABS: ALBUMIN 3.6 g/dL (3.4-5.0); ALBUMIN/GLOBULIN RATIO 0.8 (1.0-1.7); CREATININE 1.1 mg/dL (0.7-1.3); POTASSIUM 4.2 mmol/L (3.5-5.1); TOTAL BILIRUBIN 0.3 mg/dL (0.2-1.0); TOTAL PROTEIN 7.9 g/dL (6.4-8.2)
--- NOTE | 2019-05-14 17:55 | NUR ---
FAXED PRE - OP REPORT OF CMP, EKG'S PRELIMINARY REPORT TO , PCP FOR REVIEW AT 1036 05/12/2019 AND RECEIVED TRANSMITTAL CONFIRMATION. FAXED CMP REPORT TO 'S OFFICE FOR REVIEW AT 1041 05/12/2019 AND RECEIVED TRANSMITTAL CONFIRMATION. FAXED 'S MEDICAL CLEARANCE TO 'S OFFICE AT 1800 05/12/2019 AND RECEIVED TRANSMITTAL CONFIRMATION.
== END | disposition home or self-care (01) ==
LOC: SURGPAT 12:02
PROVIDERS: ATTEND Neurological Surgery
DX: Z01.818 Encounter for other preprocedural examination (principal); M48.061 Spinal stenosis, lumbar region without neurogenic claudication; M51.16 Intervertebral disc disorders with radiculopathy, lumbar region; M43.16 Spondylolisthesis, lumbar region
CPT/HCPCS: 36415; 80053; 85025; 85610; 85730; 87641; 93005

== ENCOUNTER 2019-05-21 07:09 | Inpatient (IN) | payer MEDICARE ==
[2019-05-21] VITALS (8 sets, daily range): BP systolic 96–139; BP diastolic 65–94
[~2019-05-21] VITALS: Ht 185.4 cm; Wt 87.1 kg
[~2019-05-21 07:09] MED LIST changes: +BACITRACIN 50,000 UNIT in IV NORMAL SALINE 1000ML BAG 1,000 ML IRR ONE; +BUPIVAC MPF-EPI 0.5%-1:200000 30 ML VIAL. ONE; +BUPIVACAINE-EPI 0.25%-1:200000 MPF 30 ML VIAL. ONE; +CYAN-25 PO; -CYAN10005 PO; +IV RINGERS,LACTATED 1000ML 1,000 ML IV SCH; +KETOROLAC 60 MG/2 ML INJ FOR OR. ONE; +LIDOCAINE 1% PF 2 ML VIAL. ID PRN; +MORPHINE SULFATE 2 MG/ML VIAL. IV PRN; +ONDANSETRON PF 4 MG/2 ML VIAL. IV PRN; +PROCHLORPERAZINE 10 MG/2 ML VIAL. IV PRN; +SURGICEL FIBRILLAR 1X2 EACH. ONE; +THROMBIN TOPICAL 20,000 UNIT SPRAY.SYRN KIT TP ONE; +THROMBIN TOPICAL 5,000 UNIT VIAL. ONE; +fentaNYL PF VIAL 100 MCG/2 ML VIAL IV PRN
[2019-05-21] MEDS ORDERED: PROPOFOL 100 ML IV ONE (07:28)
[2019-05-21] MEDS ORDERED: ONDANSETRON PF 4 MG/2 ML VIAL. ONE (08:14)
[2019-05-21] MEDS ORDERED: DEXAMETHASONE SOD PHOS 20 MG/5 ML VIAL. ONE (08:14)
[2019-05-21] MEDS ORDERED: PROPOFOL 20 ML IV ONE (08:14)
[2019-05-21] MEDS ORDERED: LIDOCAINE 2% PF 5 ML VIAL. ONE (08:14)
[2019-05-21] MEDS ORDERED: PHENYLEPHRINE 10 MG/ML VIAL. ONE (08:14)
[2019-05-21] MEDS ORDERED: 0.9 % SODIUM CHLORIDE 20 ML VIAL. IJ ONE ×2 (08:15→08:18)
[2019-05-21] MEDS ORDERED: ROCURONIUM 50 MG/5 ML VIAL. ONE (08:15)
[2019-05-21] MEDS ORDERED: REMIFENTANIL 2 MG VIAL. IV ONE ×2 (08:15→10:51)
[2019-05-21] MEDS ORDERED: MIDAZOLAM HCL/PF 2 MG/2 ML VIAL. ONE (08:15)
[2019-05-21] MEDS ORDERED: PROPOFOL 50 ML IV ONE (08:15)
[2019-05-21] MEDS ORDERED: MINERAL OIL/PETROLATUM,WHITE OPHTH OINT 3.5GM TUBE. ONE (08:16)
[2019-05-21] MEDS ORDERED: KETAMINE HCL IN NACL, ISO-OSM 50 MG/5 ML SYRINGE ONE (09:24)
[2019-05-21] MEDS ORDERED: ceFAZolin SODIUM 1 GM VIAL ONE (09:54)
[2019-05-21] MEDS ORDERED: DESFLURANE > 120 MINUTES IH ONE (10:21)
--- NOTE | 2019-05-21 10:25 | CONS ---
DATE OF CONSULTATION: 05/21/2019 ATTENDING PHYSICIAN: Edward Zacarias MD CHIEF COMPLAINT/HISTORY OF PRESENT ILLNESS: This 64-year-old white male is well known to me from followup in the office. The patient is admitted at this point in time for lumbar decompression and fusion. Preoperative workup was unremarkable other than the sodium slightly low in the 128, which is chronic for him, likely related to drinking too many fluids. He is okayed for upcoming surgery. PAST MEDICAL/SURGICAL HISTORY: Remarkable for prior back surgery at least on 2 occasions. He has a longstanding history of coronary artery disease with prior coronary artery bypass grafting. He has also had coronary stenting. He has hypertension, hyperlipidemia, and some peripheral neuropathy. He has had a prior tonsillectomy and adenoidectomy. He has a history of gastroesophageal reflux disease. MEDICATIONS: Brought with the patient and listed on the computer have been addressed. ALLERGIES: He has no known drug allergies. SOCIAL HISTORY: The patient does smoke still, is a nondrinker, does not abuse drugs; , lives at home with his , and is retired. FAMILY HISTORY: Noncontributory. REVIEW OF SYSTEMS: Remarkable for back and leg pain with him having to resort to a walker over the last week or 2 after another fall, feeling like his right leg is going to give out on him at times. PHYSICAL EXAMINATION: GENERAL: He is a well-developed, well-nourished white male, in no acute distress, lying in bed. is at bedside. VITAL SIGNS: Stable. He is afebrile. HEENT: Unremarkable. NECK: Supple, without adenopathy or thyromegaly. CHEST: Clear to auscultation and percussion. HEART: Regular rate and rhythm without S3, S4, or murmur. ABDOMEN: Soft and nontender without hepatosplenomegaly or masses. EXTREMITIES: Without cyanosis, clubbing, and/or edema. NEUROLOGIC: Intact. IMPRESSION: 1. Lumbar radiculopathy, for decompression and fusion. 2. Multiple other problems listed above. PLAN: We will follow along postoperatively with you. Thanks for the consultation. TAMIKO CRANE MD DR: SUMA/aleks JOB#: [id number] / [id number]
[2019-05-21] MEDS ORDERED: MAGNESIUM HYDROXIDE 2,400 MG/30 ML ORAL.SUSP. PO PRN (11:45)
[2019-05-21] MEDS ORDERED: NALOXONE 0.4 MG/ML VIAL. IV PRN (11:45)
[2019-05-21] MEDS ORDERED: oxyCODONE/APAP 10/325 1 TAB TABLET PO PRN (11:45)
[2019-05-21] MEDS ORDERED: diphenhydrAMINE HCL 25 MG CAPSULE PO PRN (11:45)
[2019-05-21] MEDS ORDERED: MAG HYDROX/ALUMINUM HYD/SIMETH 30 ML ORAL.SUSP PO PRN (11:45)
[2019-05-21] MEDS ORDERED: ACETAMINOPHEN 325 MG TABLET. PO PRN (11:45)
[2019-05-21] MEDS ORDERED: ONDANSETRON PF 4 MG/2 ML VIAL. IV PRN (11:45)
[2019-05-21] MEDS ORDERED: 0.9 % SODIUM CHLORIDE 10 ML DISP.SYRIN. IV PRN (11:45)
[2019-05-21] MEDS ORDERED: ceFAZolin SODIUM 1 GM in IV DEXTROSE 5% 50 ML IV SCH (14:00)
[2019-05-21] MEDS: POTASSIUM CL 20MEQ D5-0.45NACL 1,000 ML IV SCH (14:00)
[2019-05-21] MEDS ORDERED: fentaNYL PF VIAL 100 MCG/2 ML VIAL ONE (14:57)
[2019-05-21] MEDS ORDERED: PROCHLORPERAZINE 10 MG/2 ML VIAL. ONE (15:06)
[2019-05-21] MEDS ORDERED: MORPHINE SULFATE 2 MG/ML VIAL. ONE (15:06)
[2019-05-21] MEDS ORDERED: HYDROmorphone 2 MG/ML VIAL ONE (15:28)
[2019-05-21] MEDS: HYDROmorphone 2 MG/ML VIAL IV PRN ×2 (15:32→15:42)
[2019-05-21] MEDS: clonazePAM 1 MG TABLET PO SCH ×2 (16:47→21:15)
[2019-05-21] MEDS: fentaNYL PF VIAL 100 MCG/2 ML VIAL IV PRN ×2 (16:48→21:17)
--- NOTE | 2019-05-21 17:10 | NUR ---
Received from pacu. he is awake and alert. He is rating his pain a "10" and wants pain medication. He has been taking 4 Percocet 10's a day along with "4" or more beers a day.States that the pain is in his lower back.Comes to the floor o2 on via a mask related to "polyp", placed on nasal cannula at 5 l originally and weaned down to 3l at this time. He moves all extremities well and equal. history of neuropathy in his feet. He has a dressing on his left hip(small amount of serous drainage) and lower back(clean dry). Ice applied to his back. He states he had surgery in February. Had to reinforce on turning(log rolling). Tolerating food and water without complaints of nausea.
[2019-05-21] MEDS: PANTOPRAZOLE 40 MG TABLET.DR. PO SCH (18:17)
[2019-05-21] MEDS ORDERED: DOCUSATE SODIUM 100 MG CAPSULE. PO SCH (21:00)
[2019-05-21] MEDS: ATORVASTATIN CALCIUM 40 MG TABLET. PO SCH (21:15)
[2019-05-21] MEDS: METHOCARBAMOL 750 MG TABLET PO PRN (21:15)
[2019-05-21] MEDS: POLYETHYLENE GLYCOL 3350 17 GM PACKET. PO SCH (21:16)
[2019-05-21] MEDS: PRIMIDONE 250 MG TABLET PO SCH (21:16)
[2019-05-21] MEDS: CALCIUM CARBONATE 500 MG TAB.CHEW PO PRN (21:16)
[2019-05-21] MEDS: DOCUSATE SODIUM 100 MG CAPSULE. PO SCH (21:16)
[2019-05-21] MEDS: ceFAZolin SODIUM IV Push 1 GM VIAL. IVP SCH (21:25)
[2019-05-21] MEDS: oxyCODONE/APAP 10/325 1 TAB TABLET PO PRN (22:51)
--- NOTE | 2019-05-21 23:03 | NUR ---
Patient unable to void after 2 attempts in bathroom. straight cath done with 900+ cc clear straw returns. Pt states he feels much better. Addendum: 05/21/19 at 2305 by JOSHUA CHAHAL RN Amended: Links added.
[2019-05-22] VITALS (7 sets, daily range): BP systolic 108–147; BP diastolic 66–92
[2019-05-22] MEDS: fentaNYL PF VIAL 100 MCG/2 ML VIAL IV PRN ×3 (03:14→19:42)
[2019-05-22] MEDS: POTASSIUM CL 20MEQ D5-0.45NACL 1,000 ML IV SCH ×2 (03:20→16:29)
[2019-05-22] MEDS: oxyCODONE/APAP 10/325 1 TAB TABLET PO PRN ×4 (05:02→22:29)
[2019-05-22] MEDS: ceFAZolin SODIUM IV Push 1 GM VIAL. IVP SCH ×2 (06:16→13:01)
[2019-05-22] MEDS: PANTOPRAZOLE 40 MG TABLET.DR. PO SCH ×2 (06:45→16:32)
[2019-05-22] MEDS ORDERED: PANTOPRAZOLE 40 MG TABLET.DR. PO SCH (07:30)
[2019-05-22] MEDS: ASPIRIN CHEWABLE 81 MG TABLET. PO SCH (07:36)
[2019-05-22] MEDS: METHOCARBAMOL 750 MG TABLET PO PRN (07:36)
[2019-05-22] MEDS: POLYETHYLENE GLYCOL 3350 17 GM PACKET. PO SCH ×2 (07:36→16:38)
[2019-05-22] MEDS: DOCUSATE SODIUM 100 MG CAPSULE. PO SCH ×2 (07:37→22:30)
[2019-05-22] MEDS: MULTIVITAMIN with MINERAL TABLET. PO SCH (07:37)
[2019-05-22] MEDS: CALCIUM CARBONATE 500 MG TABLET PO SCH (07:37)
[2019-05-22] MEDS: CHOLECALCIFEROL (VITAMIN D3) 1,000 UNIT TABLET PO SCH (07:37)
[2019-05-22] MEDS: GABAPENTIN 300 MG CAPSULE. PO SCH (07:37)
[2019-05-22] MEDS: CYANOCOBALAMIN (VITAMIN B-12) 1,000 MCG TABLET. PO SCH (07:37)
[2019-05-22] MEDS: FERROUS SULFATE 325 MG TABLET. PO SCH (07:37)
[2019-05-22] MEDS: METOPROLOL TART IMMED RELEASE 25 MG TABLET. PO SCH (07:42)
--- NOTE | 2019-05-22 07:43 | PDOC ---
Provider Note Provider Note for dr mendoza- bp low on amlo/lisin so hold amlo- bmp as Na+ 128 05/11, no diuretic- follow KEVIN DOWNS MD May 22, 2019 07:43
[2019-05-22] MEDS: clonazePAM 1 MG TABLET PO SCH ×4 (08:55→22:29)
[2019-05-22] MEDS: PRIMIDONE 250 MG TABLET PO SCH ×2 (08:55→22:30)
[2019-05-22] MEDS: LISINOPRIL 10 MG TABLET PO SCH (09:00)
[2019-05-22] MEDS ORDERED: amLODIPine BESYLATE 5 MG TABLET PO SCH (09:00)
[2019-05-22 09:58] LABS: CALCIUM 8.9 mg/dL (8.5-10.1); CREATININE 1.1 mg/dL (0.7-1.3); POTASSIUM 4.2 mmol/L (3.5-5.1)
--- NOTE | 2019-05-22 10:30 | NUR ---
up to the bathroom feels like he emptied his bladder. bladder scan clleimuns=035. straight cath with return of 400cc clear yellow urine.
--- NOTE | 2019-05-22 12:01 | NUR ---
SS following for discharge planning. SS reviewed pt chart. Pt is from home with spouse and is currently on room air. PT/OT ordered. Pt and family requesting to go to [facility], ; fax [phone], at discharge. SS will await PT/OT evaluations and recommendations and will proceed accordingly with discharge planning.
--- NOTE | 2019-05-22 12:44 | PDOC ---
PROGRESS NOTES Subjective Subjective POD #1 up in chair ambulated in her right leg pain resolved back/ incision pain, helped with medication Objective Objective Vital Signs Date Time Temp Pulse Resp B/P (MAP) Pulse Ox O2 Delivery O2 Flow Rate FiO2 05/22/19 11:00 20 97 Room Air 05/22/19 10:56 98.0 59 111/66 (81) 98.0 05/21/19 20:00 1.0 Intake and Output 05/22/19 07:00 Intake Total 3160 ml Output Total 1400 ml Balance 1760 ml Intake Oral 2060 ml IV Total 1100 ml Output Urine Total 1300 ml Estimated Blood Loss 100 ml # Voids 3 Physical Exam General: Alert, Oriented X3, Cooperative MUSCULOSKELETAL: Other (SUTTON) Neuro: Normal speech Skin: Other (dressing has been changed, dry and intact) Plan Plan of Care Continue PT encouraged increased activity as tolerated may need SNF Comment Review of Relevant I have reviewed the following items edson (where applicable) has been applied. Labs Laboratory Tests Test 05/22/19 09:05 Sodium Level 128 mmol/L (136-145) Potassium Level 4.2 mmol/L (3.5-5.1) Chloride Level 93 mmol/L (98-107) Carbon Dioxide Level 27 mmol/L (21-32) Anion Gap 8 (6-14) Blood Urea Nitrogen 10 mg/dL (8-26) Creatinine 1.1 mg/dL (0.7-1.3) Estimated GFR (Cockcroft-Gault) 67.0 Glucose Level 82 mg/dL (70-99) Calcium Level 8.9 mg/dL (8.5-10.1) Laboratory Tests Test 05/22/19 09:05 Sodium Level 128 mmol/L (136-145) Potassium Level 4.2 mmol/L (3.5-5.1) Chloride Level 93 mmol/L (98-107) Carbon Dioxide Level 27 mmol/L (21-32) Anion Gap 8 (6-14) Blood Urea Nitrogen 10 mg/dL (8-26) Creatinine 1.1 mg/dL (0.7-1.3) Estimated GFR (Cockcroft-Gault) 67.0 Glucose Level 82 mg/dL (70-99) Calcium Level 8.9 mg/dL (8.5-10.1) Medications Current Medications Ondansetron HCl (Zofran) 4 mg PRN Q6HRS PRN IV NAUSEA/VOMITING; Start 05/21/19 at 07:00; Stop 05/22/19 at 06:59; Status DC Fentanyl Citrate (Fentanyl 2ml Vial) 25 mcg PRN Q5MIN PRN IV MILD PAIN 1-3; Start 05/21/19 at 07:00; Stop 05/22/19 at 06:59; Status DC Fentanyl Citrate (Fentanyl 2ml Vial) 50 mcg PRN Q5MIN PRN IV MODERATE TO SEVERE PAIN Last administered on 05/21/19at 15:38; Start 05/21/19 at 07:00; Stop 05/22/19 at 06:59; Status DC Morphine Sulfate (Morphine Sulfate) 1 mg PRN Q10MIN PRN IV SEVERE PAIN 7-10 Last administered on 05/21/19at 15:11; Start 05/21/19 at 07:00; Stop 05/22/19 at 06:59; Status DC Ringer's Solution 1,000 ml @ 30 mls/hr Q24H IV Last administered on 05/21/19at 07:53; Start 05/21/19 at 07:00; Stop 05/21/19 at 18:59; Status DC Lidocaine HCl (Xylocaine-Mpf 1% 2ml Vial) 2 ml PRN 1X PRN ID PRIOR TO IV START; Start 05/21/19 at 07:00; Stop 05/22/19 at 06:59; Status DC Hydromorphone HCl (Dilaudid) 0.5 mg PRN Q10MIN PRN IV SEV PAIN, Second choice Last administered on 05/21/19at 15:42; Start 05/21/19 at 07:00; Stop 05/22/19 at 06:59; Status DC Prochlorperazine Edisylate (Compazine) 5 mg PACU PRN PRN IV NAUSEA, MRX1 Last administered on 05/21/19at 15:11; Start 05/21/19 at 07:00; Stop 05/22/19 at 06:59; Status DC Bacitracin 49589 unit/Sodium Chloride 1,000 ml @ 1,000 mls/hr 1X ONCE IRR Last administered on 05/21/19at 09:44; Start 05/21/19 at 06:00; Stop 05/21/19 at 06:59; Status DC Bupivacaine HCl/ Epinephrine Bitart (Sensorcaine-Epi 0.25%-1:426323 Mpf) 30 ml STK-MED ONCE .ROUTE ; Start 05/21/19 at 06:08; Stop 05/21/19 at 07:08; Status DC Bupivacaine HCl/ Epinephrine Bitart (Sensorcain-Mpf Epi 0.5%-1:270408) 30 ml STK-MED ONCE .ROUTE Last administered on 05/21/19at 09:44; Start 05/21/19 at 06:13; Stop 05/21/19 at 07:14; Status DC Thrombin (Thrombin Topical) 5,000 unit STK-MED ONCE .ROUTE ; Start 05/21/19 at 06:13; Stop 05/21/19 at 07:14; Status DC Ketorolac Tromethamine (Toradol For Or Only) 60 mg STK-MED ONCE .ROUTE Last administered on 05/21/19at 09:44; Start 05/21/19 at 06:14; Stop 05/21/19 at 07:14; Status DC Cellulose (Surgicel Fibrillar 1x2) 1 each STK-MED ONCE .ROUTE Last administered on 05/21/19at 13:18; Start 05/21/19 at 06:19; Stop 05/21/19 at 07:20; Status DC Thrombin 20,000 unit STK-MED ONCE TP Last administered on 05/21/19at 09:44; Start 05/21/19 at 06:33; Stop 05/21/19 at 07:33; Status DC Propofol 20 ml @ As Directed STK-MED ONCE IV ; Start 05/21/19 at 08:14; Stop 05/21/19 at 08:15; Status DC Dexamethasone Sodium Phosphate (Decadron) 20 mg STK-MED ONCE .ROUTE ; Start 05/21/19 at 08:14; Stop 05/21/19 at 08:16; Status DC Lidocaine HCl (Lidocaine Pf 2% Vial) 5 ml STK-MED ONCE .ROUTE ; Start 05/21/19 at 08:14; Stop 05/21/19 at 08:16; Status DC Ondansetron HCl (Zofran) 4 mg STK-MED ONCE .ROUTE ; Start 05/21/19 at 08:14; Stop 05/21/19 at 08:16; Status DC Phenylephrine HCl (Lupillo-Synephrine Inj) 10 mg STK-MED ONCE .ROUTE ; Start 05/21/19 at 08:14; Stop 05/21/19 at 08:16; Status DC Rocuronium Cossayuna (Zemuron) 50 mg STK-MED ONCE .ROUTE ; Start 05/21/19 at 08:15; Stop 05/21/19 at 08:16; Status DC Midazolam HCl (Versed) 2 mg STK-MED ONCE .ROUTE ; Start 05/21/19 at 08:15; Stop 05/21/19 at 08:16; Status DC Remifentanil HCl (Ultiva) 2 mg STK-MED ONCE IV ; Start 05/21/19 at 08:15; Stop at 08:16; Status DC Sodium Chloride (SODIUM CHLORIDE 20ml) 20 ml STK-MED ONCE IJ ; Start 05/21/19 at 08:15; Stop 05/21/19 at 08:16; Status DC Propofol 50 ml @ As Directed STK-MED ONCE IV ; Start 05/21/19 at 08:15; Stop 05/21/19 at 08:16; Status DC Multi-Ingred Cream/Lotion/Oil/ Oint (Artificial Tears Eye Ointment) 7 michelle STK- MED ONCE .ROUTE ; Start 05/21/19 at 08:16; Stop 05/21/19 at 08:17; Status DC Sodium Chloride (SODIUM CHLORIDE 20ml) 20 ml STK-MED ONCE IJ ; Start 05/21/19 at 08:18; Stop 05/21/19 at 08:19; Status DC Propofol 100 ml @ As Directed STK-MED ONCE IV ; Start 05/21/19 at 07:28; Stop 05/21/19 at 08:28; Status DC Ketamine HCl (Ketamine) 50 mg STK-MED ONCE .ROUTE ; Start 05/21/19 at 09:24; Stop 05/21/19 at 09:25; Status DC Cefazolin Sodium/ Dextrose 50 ml @ 100 mls/hr 1X ONCE IV Last administered on 05/21/19at 09:17; Start 05/21/19 at 10:00; Stop 05/21/19 at 10:29; Status DC Cefazolin Sodium (Ancef) 1 gm STK-MED ONCE .ROUTE ; Start 05/21/19 at 09:54; Stop 05/21/19 at 09:55; Status DC Desflurane (Suprane) 90 ml STK-MED ONCE IH ; Start 05/21/19 at 10:21; Stop 05/21/19 at 10:22; Status DC Remifentanil HCl (Ultiva) 2 mg STK-MED ONCE IV ; Start 05/21/19 at 10:51; Stop 05/21/19 at 10:52; Status DC Amlodipine Besylate (Norvasc) 5 mg DAILY PO ; Start 05/22/19 at 09:00; Stop 05/22/19 at 09:00; Status DC Aspirin (Children'S Aspirin) 81 mg DAILY PO Last administered on 05/22/19 07:36; Start 05/22/19 at 09:00 Atorvastatin Calcium (Lipitor) 40 mg QHS PO Last administered on 05/21/19at 21:15; Start 05/21/19 at 21:00 Vitamin D (Vitamin D3) 1,000 unit DAILY PO Last administered on 05/22/19 07:37; Start 05/22/19 at 09:00 Clonazepam (KlonoPIN) 1 mg QID PO Last administered on 05/22/19 08:55; Start 05/21/19 at 17:00 Cyanocobalamin (Vitamin B-12) 500 mcg DAILY PO Last administered on 05/22/19 07:37; Start 05/22/19 at 09:00 Docusate Sodium (Colace) 100 mg BID PO Last administered on 05/22/19 07:37; S tart 05/21/19 at 21:00 Ferrous Sulfate (Feosol) 325 mg DAILY PO Last administered on 05/22/19 07:37; Start 05/22/19 at 09:00 Metoprolol Tartrate (Lopressor) 25 mg DAILY PO Last administered on 05/22/19 07:42; Start 05/22/19 at 09:00 Calcium Carbonate/ Glycine (Oscal) 500 mg DAILY PO Last administered on 05/22/19 07:37; Start 05/22/19 at 09:00 Gabapentin (Neurontin) 300 mg DAILY PO Last administered on 05/22/19 07:37; Start 05/22/19 at 09:00 Lisinopril (Prinivil) 10 mg DAILY PO ; Start 05/22/19 at 09:00 Multivitamins (Thera M Plus) 1 tab DAILY PO Last administered on 05/22/19at 07:37; Start 05/22/19 at 09:00 Pantoprazole Sodium (Protonix) 40 mg DAILYAC PO ; Start 05/22/19 at 07:30; Stop 05/22/19 at 07:30; Status DC Primidone (Mysoline) 250 mg BID PO Last administered on 05/22/19at 08:55; Start 05/21/19 at 21:00 Fentanyl Citrate (Fentanyl 2ml Vial) 50 mcg PRN Q2HR PRN IV PAIN Last administered on 05/22/19at 03:14; Start 05/21/19 at 11:45 Acetaminophen (Tylenol) 650 mg PRN Q6HRS PRN PO MILD PAIN / TEMP; Start 05/21/19 at 11:45 Al Hydroxide/Mg Hydroxide (Mylanta Plus Xs) 30 ml PRN Q3HRS PRN PO HEARTBURN / GAS; Start 05/21/19 at 11:45 Calcium Carbonate/ Glycine (Tums) 500 mg PRN Q3HRS PRN PO INDIGESTION Last administered on 05/21/19at 21:16; Start 05/21/19 at 11:45 Diphenhydramine HCl (Benadryl) 25 mg PRN Q6HRS PRN PO ITCHING; Start 05/21/19 at 11:45 Zolpidem Tartrate (Ambien) 5 mg PRN QHS PRN PO INSOMNIA, MAY REPEAT IN 1HR; Start 05/21/19 at 21:00 Naloxone HCl (Narcan) 0.1 mg PRN Q2MIN PRN IV ADMIN; Start 05/21/19 at 11:45 Sodium Chloride (Normal Saline Flush) 3 ml QSHIFT PRN IV AFTER MEDS AND BLOOD DRAWS; Start 05/21/19 at 11:45 Potassium Chloride/Dextrose/ Sod Cl 1,000 ml @ 75 mls/hr [id number] IV ; Start 05/21/19 at 14:00 Methocarbamol (Robaxin) 750 mg TID PRN PO MUSCLE SPASMS Last administered on 05/22/19at 07:36; Start 05/21/19 at 11:45 Docusate Sodium (Colace) 100 mg BID PO ; Start 05/21/19 at 21:00; Status UNV Magnesium Hydroxide (Milk Of Magnesia) 2,400 mg PRN Q12HR PRN PO CONSTIPATION; Start 05/21/19 at 11:45 Ondansetron HCl (Zofran) 4 mg PRN Q6HRS PRN IV NAUESA, 1ST CHOICE; Start 05/21/19 at 11:45 Cefazolin Sodium 1 gm/Dextrose 50 ml @ 100 mls/hr Q8HRS IV ; Start 05/21/19 at 14:00; Stop 05/21/19 at 16:17; Status DC Oxycodone/ Acetaminophen (Percocet 10/325) 1 tab PRN Q6HRS PRN PO MODERATE PAIN, SEVERE PAIN Last administered on 05/21/19at 16:47; Start 05/21/19 at 11:45 Oxycodone/ Acetaminophen (Percocet 10/325) 2 tab PRN Q6HRS PRN PO SEVERE PAIN Last administered on 05/22/19at 09:52; Start 05/21/19 at 11:45 Cefazolin Sodium/ Dextrose 50 ml @ 100 mls/hr 1X ONCE IV Last administered on 05/21/19at 13:15; Start 05/21/19 at 13:15; Stop 05/21/19 at 13:44; Status DC Fentanyl Citrate (Fentanyl 2ml Vial) 100 mcg STK-MED ONCE .ROUTE ; Start 05/21/19 at 14:57; Stop 05/21/19 at 14:58; Status DC Morphine Sulfate (Morphine Sulfate) 2 mg STK-MED ONCE .ROUTE ; Start 05/21/19 at 15:06; Stop 05/21/19 at 15:07; Status DC Prochlorperazine Edisylate (Compazine) 10 mg STK-MED ONCE .ROUTE ; Start 05/21/19 at 15:06; Stop 05/21/19 at 15:07; Status DC Hydromorphone HCl (Dilaudid) 2 mg STK-MED ONCE .ROUTE ; Start 05/21/19 at 15:28; Stop 05/21/19 at 15:29; Status DC Cefazolin Sodium (Ancef) 1 gm Q8HRS IVP Last administered on 05/22/19at 06:16; Start 05/21/19 at 22:00; Stop 05/22/19 at 14:01 Pantoprazole Sodium (Protonix) 40 mg BIDAC PO Last administered on 05/22/19at 06:45; Start 05/21/19 at 18:30 Polyethylene Glycol (miraLAX PACKET) 17 gm BID PO Last administered on 05/22/19at 07:36; Start 05/21/19 at 21:00 Active Scripts Active Colace (Docusate Sodium) 100 Mg Capsule 100 Mg PO BID Reported Percocet 7.5-325 Mg Tablet (Oxycodone/Acetaminophen) 1 Each Tablet 1 Tab PO PRN Q6HRS PRN Gabapentin 600 Mg Tablet 300 Mg PO DAILY Meloxicam 15 Mg Tablet 1 Tab PO DAILY Mysoline (Primidone) 250 Mg Tablet 250 Mg PO BID Men's Multi-Vitamin (Multivitamin) 1 Each Tablet 1 Each PO DAILY Vitamin B-12 (Cyanocobalamin (Vitamin B-12)) 1,000 Mcg Tablet 500 Mcg PO DAILY Vitamin D3 (Cholecalciferol (Vitamin D3)) 1,000 Unit Tablet 1 Tab PO DAILY [Vitamn B 1] 100 DAILY Calcium (Calcium Carbonate) 600 Mg Tablet 600 Mg PO DAILY Ferrous Sulfate 325 Mg Tablet 65 Mg PO DAILY Aspirin 81 Mg Tab.chew 1 Tab PO DAILY Metoprolol Tartrate 25 Mg Tablet 1 Tab PO DAILY Amlodipine Besylate 5 Mg Tablet 5 Mg PO DAILY Clonazepam 1 Mg Tablet 1 Mg PO QID Omeprazole 40 Mg Capsule.dr 1 Cap PO BIDPCLD Lisinopril 5 Mg Tablet 2 Tab PO DAILY Atorvastatin Calcium 40 Mg Tablet 1 Tab PO DAILY Vitals/I & O Vital Sign - Last 24 Hours 05/21/19 05/21/19 05/21/19 05/21/19 14:44 14:59 15:04 15:11 Temp 97.5 97.5 97.5 97.5 97.5 97.5 Pulse 72 69 66 Resp 18 28 28 30 B/P (MAP) 148/87 110/87 128/82 Pulse Ox 100 100 100 O2 Delivery Simple Mask Simple Mask Simple Mask Simple Mask O2 Flow Rate 10 10 10 10.0 05/21/19 05/21/19 05/21/19 05/21/19 15:19 15:32 15:34 15:34 Temp 97.5 97.5 207.5 97.5 97.5 207.5 Pulse 62 62 65 Resp 30 28 26 20 B/P (MAP) 132/82 137/87 129/90 Pulse Ox 100 98 96 100 O2 Delivery Simple Mask Simple Mask Simple Mask Simple Mask O2 Flow Rate 10.0 10.0 10.0 10.0 05/21/19 05/21/19 05/21/19 05/21/19 15:38 15:42 15:49 15:50 Pulse 63 Resp 30 28 20 B/P (MAP) 113/77 Pulse Ox 99 93 100 O2 Delivery Simple Mask Simple Mask Simple Mask Mask O2 Flow Rate 10.0 10.0 10.0 10.0 05/21/19 05/21/19 05/21/19 05/21/19 16:30 16:45 16:47 16:48 Temp 97.5 97.5 97.5 97.5 Pulse 72 68 Resp 18 16 20 B/P (MAP) 133/86 (102) 133/86 (102) Pulse Ox 98 98 98 O2 Delivery Nasal Cannula Nasal Cannula Nasal Cannula Nasal Cannula O2 Flow Rate 5.0 4.0 5.0 5.0 05/21/19 05/21/19 05/21/19 05/21/19 17:00 17:05 17:15 17:45 Temp 97.5 97.5 97.5 97.5 97.5 97.5 Pulse 68 84 79 Resp 20 18 18 B/P (MAP) 128/94 (105) 139/91 (107) 107/65 (79) Pulse Ox 97 97 96 O2 Delivery Nasal Cannula Nasal Cannula Nasal Cannula Nasal Cannula O2 Flow Rate 3.0 3.0 3.0 1.0 05/21/19 05/21/19 05/21/19 05/21/19 18:15 19:11 20:00 21:17 Temp 97.5 97.5 Pulse 77 75 Resp 16 16 20 B/P (MAP) 100/65 (77) 96/65 (75) Pulse Ox 96 93 O2 Delivery Nasal Cannula Room Air Nasal Cannula Room Air O2 Flow Rate 1.0 1.0 05/21/19 05/21/19 05/22/19 05/22/19 22:51 23:01 03:14 03:17 Temp 97.3 97.3 Pulse 69 72 Resp 20 20 20 B/P (MAP) 114/73 (87) 120/75 (90) Pulse Ox 97 97 97 94 O2 Delivery Room Air Room Air Room Air 05/22/19 05/22/19 05/22/19 05/22/19 03:45 05:02 06:28 07:42 Temp 97.8 97.8 Pulse 68 77 Resp 20 20 18 B/P (MAP) 108/76 (87) 139/83 Pulse Ox 94 94 92 O2 Delivery Room Air Room Air Room Air 05/22/19 05/22/19 05/22/19 05/22/19 08:00 08:57 10:56 11:00 Temp 98.0 98.0 Pulse 67 59 Resp 20 18 20 B/P (MAP) 109/74 (86) 111/66 (81) Pulse Ox 96 97 97 O2 Delivery Room Air Room Air Room Air Room Air Intake and Output 05/21/19 05/21/19 05/22/19 15:00 23:00 07:00 Intake Total 1100 ml 660 ml 1400 ml Output Total 100 ml 400 ml 900 ml Balance 1000 ml 260 ml 500 ml MAGALIE CLINE [employer] May 22, 2019 12:44
--- NOTE | 2019-05-22 16:42 | NUR ---
ELIJAH WOKE UP IN PAIN; HE WAS MEDICATED WITH FENTANYL. PAIN CONTINUED TO RATING "6" MEDIATE WITH PERCOCET. HE WAS INFORMED THAT THE NEXT PAIN PILLS WOULD BE DUE AT 1045PM/V/U. STATES FELT LIKE HE ISNT EMPTYING HIS BLADDER --"HARDER TO START HIS STREAM". REFUSED SUPPER "sTILL HASNT HAD A BM. WANTS MIRALAX EARLY-GIVEN IN PRUNE JUICE AND MOM GIVEN. TRANSFERRED TO ROOM 408. BRACE MEASURED BY DONIS.
[2019-05-22] MEDS: ZOLPIDEM 5 MG TABLET. PO PRN (22:29)
[2019-05-22] MEDS: ATORVASTATIN CALCIUM 40 MG TABLET. PO SCH (22:30)
[2019-05-23] VITALS (7 sets, daily range): BP systolic 93–159; BP diastolic 62–92
[2019-05-23] MEDS: fentaNYL PF VIAL 100 MCG/2 ML VIAL IV PRN ×4 (02:01→21:54)
[2019-05-23] MEDS: POTASSIUM CL 20MEQ D5-0.45NACL 1,000 ML IV SCH (06:00)
[2019-05-23] MEDS: PANTOPRAZOLE 40 MG TABLET.DR. PO SCH ×2 (06:21→15:51)
[2019-05-23] MEDS: oxyCODONE/APAP 10/325 1 TAB TABLET PO PRN ×3 (06:21→18:38)
[2019-05-23] MEDS: POLYETHYLENE GLYCOL 3350 17 GM PACKET. PO SCH ×2 (09:00→20:47)
[2019-05-23] MEDS: DOCUSATE SODIUM 100 MG CAPSULE. PO SCH ×2 (09:00→20:47)
[2019-05-23] MEDS: CHOLECALCIFEROL (VITAMIN D3) 1,000 UNIT TABLET PO SCH (09:07)
[2019-05-23] MEDS: PRIMIDONE 250 MG TABLET PO SCH ×2 (09:07→20:47)
[2019-05-23] MEDS: ASPIRIN CHEWABLE 81 MG TABLET. PO SCH (09:07)
[2019-05-23] MEDS: MULTIVITAMIN with MINERAL TABLET. PO SCH (09:07)
[2019-05-23] MEDS: FERROUS SULFATE 325 MG TABLET. PO SCH (09:09)
[2019-05-23] MEDS: CALCIUM CARBONATE 500 MG TABLET PO SCH (09:09)
[2019-05-23] MEDS: METOPROLOL TART IMMED RELEASE 25 MG TABLET. PO SCH (09:09)
[2019-05-23] MEDS: CYANOCOBALAMIN (VITAMIN B-12) 1,000 MCG TABLET. PO SCH (09:09)
[2019-05-23] MEDS: LISINOPRIL 10 MG TABLET PO SCH (09:10)
[2019-05-23] MEDS: clonazePAM 1 MG TABLET PO SCH ×4 (09:10→20:47)
[2019-05-23] MEDS: GABAPENTIN 300 MG CAPSULE. PO SCH (09:10)
--- NOTE | 2019-05-23 12:16 | PDOC ---
Provider Note Provider Note vss, bp ok- Na+ still low 128, is chronic- i offerred dc lisin and add amlo to see if related, they decline and will discuss w/ dr mendoza,- rest same to snf 05/24 KEVIN DOWNS MD May 23, 2019 12:16
--- NOTE | 2019-05-23 12:58 | PDOC ---
PROGRESS NOTES Subjective Subjective patient seen at 1100 POD#2 up ambulating in her Mild right leg pain some back/ incisional pain Objective Objective Vital Signs Date Time Temp Pulse Resp B/P (MAP) Pulse Ox O2 Delivery O2 Flow Rate FiO2 05/23/19 12:45 20 Room Air 05/23/19 11:11 98.2 71 93/62 (72) 95 98.2 05/23/19 08:00 1.0 Intake and Output 05/23/19 07:00 Intake Total 300 ml Balance 300 ml Intake Oral 300 ml # Voids 24 # Bowel Movements 1 Physical Exam General: Alert, Oriented X3, Cooperative, No acute distress MUSCULOSKELETAL: Other (SUTTON) Neuro: Normal speech Skin: Other (dressing dry and intact) Plan Plan of Care encouraged increased activity as tolerated PT SNF tomorrow Comment Review of Relevant I have reviewed the following items edson (where applicable) has been applied. Labs Laboratory Tests Test 05/22/19 09:05 Sodium Level 128 mmol/L (136-145) Potassium Level 4.2 mmol/L (3.5-5.1) Chloride Level 93 mmol/L (98-107) Carbon Dioxide Level 27 mmol/L (21-32) Anion Gap 8 (6-14) Blood Urea Nitrogen 10 mg/dL (8-26) Creatinine 1.1 mg/dL (0.7-1.3) Estimated GFR (Cockcroft-Gault) 67.0 Glucose Level 82 mg/dL (70-99) Calcium Level 8.9 mg/dL (8.5-10.1) Medications Current Medications Ondansetron HCl (Zofran) 4 mg PRN Q6HRS PRN IV NAUSEA/VOMITING; Start 05/21/19 at 07:00; Stop 05/22/19 at 06:59; Status DC Fentanyl Citrate (Fentanyl 2ml Vial) 25 mcg PRN Q5MIN PRN IV MILD PAIN 1-3; Start 05/21/19 at 07:00; Stop 05/22/19 at 06:59; Status DC Fentanyl Citrate (Fentanyl 2ml Vial) 50 mcg PRN Q5MIN PRN IV MODERATE TO SEVERE PAIN Last administered on 05/21/19at 15:38; Start 05/21/19 at 07:00; Stop 05/22/19 at 06:59; Status DC Morphine Sulfate (Morphine Sulfate) 1 mg PRN Q10MIN PRN IV SEVERE PAIN 7-10 Last administered on 05/21/19at 15:11; Start 05/21/19 at 07:00; Stop 05/22/19 at 06:59; Status DC Ringer's Solution 1,000 ml @ 30 mls/hr Q24H IV Last administered on 05/21/19at 07:53; Start 05/21/19 at 07:00; Stop 05/21/19 at 18:59; Status DC Lidocaine HCl (Xylocaine-Mpf 1% 2ml Vial) 2 ml PRN 1X PRN ID PRIOR TO IV START; Start 05/21/19 at 07:00; Stop 05/22/19 at 06:59; Status DC Hydromorphone HCl (Dilaudid) 0.5 mg PRN Q10MIN PRN IV SEV PAIN, Second choice Last administered on 05/21/19at 15:42; Start 05/21/19 at 07:00; Stop 05/22/19 at 06:59; Status DC Prochlorperazine Edisylate (Compazine) 5 mg PACU PRN PRN IV NAUSEA, MRX1 Last administered on 05/21/19at 15:11; Start 05/21/19 at 07:00; Stop 05/22/19 at 06:59; Status DC Bacitracin 98295 unit/Sodium Chloride 1,000 ml @ 1,000 mls/hr 1X ONCE IRR Last administered on 05/21/19at 09:44; Start 05/21/19 at 06:00; Stop 05/21/19 at 06:59; Status DC Bupivacaine HCl/ Epinephrine Bitart (Sensorcaine-Epi 0.25%-1:[id number] Mpf) 30 ml STK-MED ONCE .ROUTE ; Start 05/21/19 at 06:08; Stop 05/21/19 at 07:08; Status DC Bupivacaine HCl/ Epinephrine Bitart (Sensorcain-Mpf Epi 0.5%-1:[id number]) 30 ml STK-MED ONCE .ROUTE Last administered on 05/21/19at 09:44; Start 05/21/19 at 06:13; Stop 05/21/19 at 07:14; Status DC Thrombin (Thrombin Topical) 5,000 unit STK-MED ONCE .ROUTE ; Start 05/21/19 at 06:13; Stop 05/21/19 at 07:14; Status DC Ketorolac Tromethamine (Toradol For Or Only) 60 mg STK-MED ONCE .ROUTE Last administered on 05/21/19at 09:44; Start 05/21/19 at 06:14; Stop 05/21/19 at 07:14; Status DC Cellulose (Surgicel Fibrillar 1x2) 1 each STK-MED ONCE .ROUTE Last administered on 05/21/19at 13:18; Start 05/21/19 at 06:19; Stop 05/21/19 at 07:20; Status DC Thrombin 20,000 unit STK-MED ONCE TP Last administered on 05/21/19at 09:44; Start 05/21/19 at 06:33; Stop 05/21/19 at 07:33; Status DC Propofol 20 ml @ As Directed STK-MED ONCE IV ; Start 05/21/19 at 08:14; Stop 05/21/19 at 08:15; Status DC Dexamethasone Sodium Phosphate (Decadron) 20 mg STK-MED ONCE .ROUTE ; Start 05/21/19 at 08:14; Stop 05/21/19 at 08:16; Status DC Lidocaine HCl (Lidocaine Pf 2% Vial) 5 ml STK-MED ONCE .ROUTE ; Start 05/21/19 at 08:14; Stop 05/21/19 at 08:16; Status DC Ondansetron HCl (Zofran) 4 mg STK-MED ONCE .ROUTE ; Start 05/21/19 at 08:14; Stop 05/21/19 at 08:16; Status DC Phenylephrine HCl (Lupillo-Synephrine Inj) 10 mg STK-MED ONCE .ROUTE ; Start 05/21/19 at 08:14; Stop 05/21/19 at 08:16; Status DC Rocuronium Lamoure (Zemuron) 50 mg STK-MED ONCE .ROUTE ; Start 05/21/19 at 08:15; Stop 05/21/19 at 08:16; Status DC Midazolam HCl (Versed) 2 mg STK-MED ONCE .ROUTE ; Start 05/21/19 at 08:15; Stop 05/21/19 at 08:16; Status DC Remifentanil HCl (Ultiva) 2 mg STK-MED ONCE IV ; Start 05/21/19 at 08:15; Stop 05/21/19 at 08:16; Status DC Sodium Chloride (SODIUM CHLORIDE 20ml) 20 ml STK-MED ONCE IJ ; Start 05/21/19 at 08:15; Stop 05/21/19 at 08:16; Status DC Propofol 50 ml @ As Directed STK-MED ONCE IV ; Start 05/21/19 at 08:15; Stop 05/21/19 at 08:16; Status DC Multi-Ingred Cream/Lotion/Oil/ Oint (Artificial Tears Eye Ointment) 7 michelle STK- MED ONCE .ROUTE ; Start 05/21/19 at 08:16; Stop 05/21/19 at 08:17; Status DC Sodium Chloride (SODIUM CHLORIDE 20ml) 20 ml STK-MED ONCE IJ ; Start 05/21/19 at 08:18; Stop 05/21/19 at 08:19; Status DC Propofol 100 ml @ As Directed STK-MED ONCE IV ; Start 05/21/19 at 07:28; Stop 05/21/19 at 08:28; Status DC Ketamine HCl (Ketamine) 50 mg STK-MED ONCE .ROUTE ; Start 05/21/19 at 09:24; Stop 05/21/19 at 09:25; Status DC Cefazolin Sodium/ Dextrose 50 ml @ 100 mls/hr 1X ONCE IV Last administered on 05/21/19at 09:17; Start 05/21/19 at 10:00; Stop 05/21/19 at 10:29; Status DC Cefazolin Sodium (Ancef) 1 gm STK-MED ONCE .ROUTE ; Start 05/21/19 at 09:54; Stop 05/21/19 at 09:55; Status DC Desflurane (Suprane) 90 ml STK-MED ONCE IH ; Start 05/21/19 at 10:21; Stop 05/21/19 at 10:22; Status DC Remifentanil HCl (Ultiva) 2 mg STK-MED ONCE IV ; Start 05/21/19 at 10:51; Stop 05/21/19 at 10:52; Status DC Amlodipine Besylate (Norvasc) 5 mg DAILY PO ; Start 05/22/19 at 09:00; Stop 05/22/19 at 09:00; Status DC Aspirin (Children'S Aspirin) 81 mg DAILY PO Last administered on 05/23/19at 0 9:07; Start 05/22/19 at 09:00 Atorvastatin Calcium (Lipitor) 40 mg QHS PO Last administered on 05/22/19 22:30; Start 05/21/19 at 21:00 Vitamin D (Vitamin D3) 1,000 unit DAILY PO Last administered on 05/23/19 09:07; Start 05/22/19 at 09:00 Clonazepam (KlonoPIN) 1 mg QID PO Last administered on 05/23/19 12:45; Start 05/21/19 at 17:00 Cyanocobalamin (Vitamin B-12) 500 mcg DAILY PO Last administered on 05/23/19 09:09; Start 05/22/19 at 09:00 Docusate Sodium (Colace) 100 mg BID PO Last administered on 05/22/19 22:30; Start 05/21/19 at 21:00 Ferrous Sulfate (Feosol) 325 mg DAILY PO Last administered on 05/23/19 09:09; Start 05/22/19 at 09:00 Metoprolol Tartrate (Lopressor) 25 mg DAILY PO Last administered on 05/23/19 09:09; Start 05/22/19 at 09:00 Calcium Carbonate/ Glycine (Oscal) 500 mg DAILY PO Last administered on 05/23/19 09:09; Start 05/22/19 at 09:00 Gabapentin (Neurontin) 300 mg DAILY PO Last administered on 05/23/19 09:10; Start 05/22/19 at 09:00 Lisinopril (Prinivil) 10 mg DAILY PO Last administered on 05/23/19 09:10; Start 05/22/19 at 09:00; Stop 05/23/19 at 12:04; Status DC Multivitamins (Thera M Plus) 1 tab DAILY PO Last administered on 05/23/19 09:07; Start 05/22/19 at 09:00 Pantoprazole Sodium (Protonix) 40 mg DAILYAC PO ; Start 05/22/19 at 07:30; Stop 05/22/19 at 07:30; Status DC Primidone (Mysoline) 250 mg BID PO Last administered on 05/23/19 09:07; Start 05/21/19 at 21:00 Fentanyl Citrate (Fentanyl 2ml Vial) 50 mcg PRN Q2HR PRN IV PAIN Last administered on 05/23/19at 10:14; Start 05/21/19 at 11:45 Acetaminophen (Tylenol) 650 mg PRN Q6HRS PRN PO MILD PAIN / TEMP; Start 05/21/19 at 11:45 Al Hydroxide/Mg Hydroxide (Mylanta Plus Xs) 30 ml PRN Q3HRS PRN PO HEARTBURN / GAS; Start 05/21/19 at 11:45 Calcium Carbonate/ Glycine (Tums) 500 mg PRN Q3HRS PRN PO INDIGESTION Last administered on 05/21/19at 21:16; Start 05/21/19 at 11:45 Diphenhydramine HCl (Benadryl) 25 mg PRN Q6HRS PRN PO ITCHING; Start 05/21/19 at 11:45 Zolpidem Tartrate (Ambien) 5 mg PRN QHS PRN PO INSOMNIA, MAY REPEAT IN 1HR Last administered on 05/22/19at 22:29; Start 05/21/19 at 21:00 Naloxone HCl (Narcan) 0.1 mg PRN Q2MIN PRN IV ADMIN; Start 05/21/19 at 11:45 Sodium Chloride (Normal Saline Flush) 3 ml QSHIFT PRN IV AFTER MEDS AND BLOOD DRAWS; Start 05/21/19 at 11:45 Potassium Chloride/Dextrose/ Sod Cl 1,000 ml @ 75 mls/hr [id number] IV ; Start 05/21/19 at 14:00; Stop 05/23/19 at 12:18; Status DC Methocarbamol (Robaxin) 750 mg TID PRN PO MUSCLE SPASMS Last administered on 05/22/19at 07:36; Start 05/21/19 at 11:45 Docusate Sodium (Colace) 100 mg BID PO ; Start 05/21/19 at 21:00; Status UNV Magnesium Hydroxide (Milk Of Magnesia) 2,400 mg PRN Q12HR PRN PO CONSTIPATION Last administered on 05/22/19at 16:41; Start 05/21/19 at 11:45 Ondansetron HCl (Zofran) 4 mg PRN Q6HRS PRN IV NAUESA, 1ST CHOICE; Start 05/21/19 at 11:45 Cefazolin Sodium 1 gm/Dextrose 50 ml @ 100 mls/hr Q8HRS IV ; Start 05/21/19 at 14:00; Stop 05/21/19 at 16:17; Status DC Oxycodone/ Acetaminophen (Percocet 10/325) 1 tab PRN Q6HRS PRN PO MODERATE PAIN, SEVERE PAIN Last administered on 05/21/19at 16:47; Start 05/21/19 at 11:45 Oxycodone/ Acetaminophen (Percocet 10/325) 2 tab PRN Q6HRS PRN PO SEVERE PAIN Last administered on 05/23/19at 12:45; Start 05/21/19 at 11:45 Cefazolin Sodium/ Dextrose 50 ml @ 100 mls/hr 1X ONCE IV Last administered on 05/21/19at 13:15; Start 05/21/19 at 13:15; Stop 05/21/19 at 13:44; Status DC Fentanyl Citrate (Fentanyl 2ml Vial) 100 mcg STK-MED ONCE .ROUTE ; Start 05/21/19 at 14:57; Stop 05/21/19 at 14:58; Status DC Morphine Sulfate (Morphine Sulfate) 2 mg STK-MED ONCE .ROUTE ; Start 05/21/19 at 15:06; Stop 05/21/19 at 15:07; Status DC Prochlorperazine Edisylate (Compazine) 10 mg STK-MED ONCE .ROUTE ; Start 05/21/19 at 15:06; Stop 05/21/19 at 15:07; Status DC Hydromorphone HCl (Dilaudid) 2 mg STK-MED ONCE .ROUTE ; Start 05/21/19 at 15:28; Stop 05/21/19 at 15:29; Status DC Cefazolin Sodium (Ancef) 1 gm Q8HRS IVP Last administered on 05/22/19at 13:01; Start 05/21/19 at 22:00; Stop 05/22/19 at 14:01; Status DC Pantoprazole Sodium (Protonix) 40 mg BIDAC PO Last administered on 05/23/19at 06:21; Start 05/21/19 at 18:30 Polyethylene Glycol (miraLAX PACKET) 17 gm BID PO Last administered on 05/22/19at 16:38; Start 05/21/19 at 21:00 Amlodipine Besylate (Norvasc) 2.5 mg DAILY PO ; Start 05/23/19 at 18:00; Stop 05/23/19 at 18:00; Status DC Lisinopril (Prinivil) 10 mg DAILY PO ; Start 05/24/19 at 09:00 Active Scripts Active Colace (Docusate Sodium) 100 Mg Capsule 100 Mg PO BID Reported Percocet 7.5-325 Mg Tablet (Oxycodone/Acetaminophen) 1 Each Tablet 1 Tab PO PRN Q6HRS PRN Gabapentin 600 Mg Tablet 300 Mg PO DAILY Meloxicam 15 Mg Tablet 1 Tab PO DAILY Mysoline (Primidone) 250 Mg Tablet 250 Mg PO BID Men's Multi-Vitamin (Multivitamin) 1 Each Tablet 1 Each PO DAILY Vitamin B-12 (Cyanocobalamin (Vitamin B-12)) 1,000 Mcg Tablet 500 Mcg PO DAILY Vitamin D3 (Cholecalciferol (Vitamin D3)) 1,000 Unit Tablet 1 Tab PO DAILY [Vitamn B 1] 100 DAILY Calcium (Calcium Carbonate) 600 Mg Tablet 600 Mg PO DAILY Ferrous Sulfate 325 Mg Tablet 65 Mg PO DAILY Aspirin 81 Mg Tab.chew 1 Tab PO DAILY Metoprolol Tartrate 25 Mg Tablet 1 Tab PO DAILY Amlodipine Besylate 5 Mg Tablet 5 Mg PO DAILY Clonazepam 1 Mg Tablet 1 Mg PO QID Omeprazole 40 Mg Capsule.dr 1 Cap PO BIDPCLD Lisinopril 5 Mg Tablet 2 Tab PO DAILY Atorvastatin Calcium 40 Mg Tablet 1 Tab PO DAILY Vitals/I & O Vital Sign - Last 24 Hours 05/22/19 05/22/19 05/22/19 05/22/19 15:24 15:28 19:00 19:42 Temp 98.0 98.6 98.0 98.6 Pulse 69 65 Resp 20 20 18 16 B/P (MAP) 112/80 (91) 147/92 (110) Pulse Ox 97 99 O2 Delivery Room Air Room Air Room Air 05/22/19 05/22/19 05/22/19 05/23/19 20:00 22:29 23:00 02:01 Temp 98.5 98.5 Pulse 73 Resp 20 16 18 B/P (MAP) 123/74 (90) Pulse Ox 98 O2 Delivery Room Air Room Air Room Air Room Air 05/23/19 05/23/19 05/23/19 05/23/19 03:00 06:21 07:14 07:21 Temp 98.3 98.5 98.3 98.5 Pulse 74 95 Resp 16 20 16 20 B/P (MAP) 106/70 (82) 131/92 (105) Pulse Ox 96 96 O2 Delivery Room Air Room Air Room Air Room Air 05/23/19 05/23/19 05/23/19 05/23/19 08:00 09:09 09:10 10:14 Pulse 95 95 Resp 20 B/P (MAP) 131/92 131/92 O2 Delivery Room Air Room Air O2 Flow Rate 1.0 05/23/19 05/23/19 05/23/19 10:44 11:11 12:45 Temp 98.2 98.2 Pulse 71 Resp 20 18 20 B/P (MAP) 93/62 (72) Pulse Ox 95 O2 Delivery Room Air Room Air Room Air Intake and Output 05/22/19 05/22/19 05/23/19 15:00 23:00 07:00 Intake Total 300 ml Balance 300 ml KULWANT JUAREZ MD May 23, 2019 12:58
[2019-05-23] MEDS: CALCIUM CARBONATE 500 MG TAB.CHEW PO PRN (17:37)
[2019-05-23] MEDS ORDERED: amLODIPine BESYLATE 5 MG TABLET PO SCH (18:00)
[2019-05-23] MEDS: ZOLPIDEM 5 MG TABLET. PO PRN (20:47)
[2019-05-23] MEDS: ATORVASTATIN CALCIUM 40 MG TABLET. PO SCH (20:47)
[2019-05-24] MEDS: CALCIUM CARBONATE 500 MG TAB.CHEW PO PRN (01:06)
[2019-05-24] MEDS: oxyCODONE/APAP 10/325 1 TAB TABLET PO PRN ×4 (01:06→20:50)
[2019-05-24 03:05] VITALS: BP 95/58
[2019-05-24] MEDS: fentaNYL PF VIAL 100 MCG/2 ML VIAL IV PRN (05:18)
[2019-05-24 07:16] VITALS: BP 144/83
[2019-05-24] MEDS: PANTOPRAZOLE 40 MG TABLET.DR. PO SCH ×2 (07:56→17:53)
[2019-05-24] MEDS: CHOLECALCIFEROL (VITAMIN D3) 1,000 UNIT TABLET PO SCH (07:56)
[2019-05-24] MEDS: CYANOCOBALAMIN (VITAMIN B-12) 1,000 MCG TABLET. PO SCH (07:57)
[2019-05-24] MEDS: METOPROLOL TART IMMED RELEASE 25 MG TABLET. PO SCH (07:59)
[2019-05-24] MEDS: PRIMIDONE 250 MG TABLET PO SCH ×2 (08:00→20:49)
[2019-05-24] MEDS: MULTIVITAMIN with MINERAL TABLET. PO SCH (08:00)
[2019-05-24] MEDS: clonazePAM 1 MG TABLET PO SCH ×4 (08:00→20:50)
[2019-05-24] MEDS: ASPIRIN CHEWABLE 81 MG TABLET. PO SCH (08:00)
[2019-05-24] MEDS: FERROUS SULFATE 325 MG TABLET. PO SCH (08:00)
[2019-05-24] MEDS: LISINOPRIL 10 MG TABLET PO SCH (08:01)
[2019-05-24] MEDS: GABAPENTIN 300 MG CAPSULE. PO SCH (08:01)
[2019-05-24] MEDS: CALCIUM CARBONATE 500 MG TABLET PO SCH (08:01)
[2019-05-24] MEDS: DOCUSATE SODIUM 100 MG CAPSULE. PO SCH ×2 (09:00→20:50)
--- NOTE | 2019-05-24 10:19 | PDOC ---
Provider Note Provider Note bp was low prior to lisinopril but was given anyway- no new sxs- feels ok, to snf in am- discussed low Na+, he declines any med change trial, meds same KEVIN DOWNS MD May 24, 2019 10:19
[2019-05-24 11:27] VITALS: BP 117/69
[2019-05-24] MEDS: POLYETHYLENE GLYCOL 3350 17 GM PACKET. PO SCH ×2 (14:20→20:50)
[2019-05-24 15:20] VITALS: BP 90/55
[2019-05-24 19:00] VITALS: BP 148/83
[2019-05-24] MEDS: ATORVASTATIN CALCIUM 40 MG TABLET. PO SCH (20:50)
[2019-05-24] MEDS: ZOLPIDEM 5 MG TABLET. PO PRN (20:50)
[2019-05-24 23:00] VITALS: BP 101/62
[2019-05-25] MEDS: oxyCODONE/APAP 10/325 1 TAB TABLET PO PRN ×3 (02:38→14:38)
[2019-05-25 03:00] VITALS: BP 124/79
[2019-05-25 07:00] VITALS: BP 147/83
--- NOTE | 2019-05-25 07:53 | PDOC ---
GENERAL General: vss and afebrile. awake and alert. feels like he can walk better than preop. for snu today. chest clear, heart regular, abdomen benign. agree with snu and will follow there. VITAL SIGNS/I&O Vital Signs/I&O: Vital Signs Date Time Temp Pulse Resp B/P (MAP) Pulse Ox O2 Delivery O2 Flow Rate FiO2 05/25/19 03:00 98.4 76 124/79 (94) 95 Room Air 98.4 05/25/19 02:38 18 05/24/19 20:00 1.0 I & O 05/24/19 05/24/19 05/25/19 15:00 23:00 07:00 Intake Total 120 ml Output Total 0 ml 0 ml Balance 120 ml 0 ml 0 ml ALLERGIES Allergies: Allergies Coded Allergies Type Severity Reaction Last Updated Verified No Known Drug Allergies 05/21/19 No MEDS Medications: Current Medications Medications (Trade) Dose Ordered Sig/Zahra Route PRN Reason Start Time Stop Time Status Last Admin Dose Admin Lisinopril (Prinivil) 10 mg DAILY PO 05/24/19 09:00 05/24/19 08:01 TAMIKO CRANE MD May 25, 2019 07:53
[2019-05-25] MEDS: CALCIUM CARBONATE 500 MG TABLET PO SCH (08:37)
[2019-05-25] MEDS: DOCUSATE SODIUM 100 MG CAPSULE. PO SCH (08:37)
[2019-05-25] MEDS: ASPIRIN CHEWABLE 81 MG TABLET. PO SCH (08:37)
[2019-05-25] MEDS: MULTIVITAMIN with MINERAL TABLET. PO SCH (08:37)
[2019-05-25] MEDS: clonazePAM 1 MG TABLET PO SCH ×2 (08:37→11:48)
[2019-05-25] MEDS: PANTOPRAZOLE 40 MG TABLET.DR. PO SCH (08:37)
[2019-05-25] MEDS: LISINOPRIL 10 MG TABLET PO SCH (08:39)
[2019-05-25] MEDS: PRIMIDONE 250 MG TABLET PO SCH (08:39)
[2019-05-25] MEDS: GABAPENTIN 300 MG CAPSULE. PO SCH (08:39)
[2019-05-25] MEDS: METOPROLOL TART IMMED RELEASE 25 MG TABLET. PO SCH (08:40)
[2019-05-25] MEDS: FERROUS SULFATE 325 MG TABLET. PO SCH (08:40)
[2019-05-25] MEDS: CYANOCOBALAMIN (VITAMIN B-12) 1,000 MCG TABLET. PO SCH (08:40)
[2019-05-25] MEDS: CHOLECALCIFEROL (VITAMIN D3) 1,000 UNIT TABLET PO SCH (08:40)
[2019-05-25] MEDS: POLYETHYLENE GLYCOL 3350 17 GM PACKET. PO SCH (08:41)
[2019-05-25 11:00] VITALS: BP 122/71
[2019-05-25] MEDS ORDERED: OXYC1TAB22 PO (12:12)
--- NOTE | 2019-05-25 12:15 | SNU/HH DC ---
DISCHARGE ORDERS DISCHARGE INFORMATION: DISCHARGE DATE: May 25, 2019 FINAL DIAGNOSIS m43.16 CONDITION ON DISCHARGE: Stable CODE STATUS: Code Status: Full HOSPICE: HOSPICE: No HOSPICE EVAL & TREAT: No POST DISCHARGE ORDERS: ACTIVITY ORDERS: Activity as tolerated, Avoid exertion, Walk in house, Other, see below (no lifting > 10 lbs, lumbar brace) WEIGHT BEARING STATUS: No restrictions BATHING ORDERS: Shower-keep dressing dry, No Tub Bath until see WOUND/INCISION CARE: Ice to area for comfort, Keep wound/cast CDI, Reinforce dressing PRN OTHER WOUND INSTRUCTIONS: daily dressing change FOLLOW-UP: PHYSICIAN FOLLOW-UP: Dr. Juarez in 2 weeks [phone], Dr. Prabhakar TREATMENT/EQUIPMENT ORDERS: ADAPTIVE EQUIPMENT NEEDED: Front wheeled walker Physical Therapy For: Evalulation/Treatment DISCHARGE MEDICATIONS: Home Meds Active Scripts Docusate Sodium (COLACE) 100 Mg Capsule, 100 MG PO BID for constipation, #60 CAP Prov:KULWANT JUAREZ MD 02/20/19 Reported Medications Oxycodone/Apap 7.5-325 (PERCOCET 7.5-325 MG TABLET ) 1 Each Tablet, 1 TAB PO PRN Q6HRS PRN for PAIN, TAB 0 Refills 05/11/19 Gabapentin (GABAPENTIN) 600 Mg Tablet, 300 MG PO DAILY for NEUROGENIC PAIN, TAB 02/13/19 Meloxicam (MELOXICAM) 15 Mg Tablet, 1 TAB PO DAILY for pain, #30 TAB 2 Refills 02/13/19 Primidone (MYSOLINE) 250 Mg Tablet, 250 MG PO BID for tremors, TAB 02/13/19 Multivitamin (MEN'S MULTI-VITAMIN) 1 Each Tablet, 1 EACH PO DAILY for supplement, TAB 11/20/17 Cyanocobalamin (Vitamin B-12) (VITAMIN B-12) 1,000 Mcg Tablet, 500 MCG PO DAILY for supplement, TAB 11/20/17 Cholecalciferol (Vitamin D3) (VITAMIN D3) 1,000 Unit Tablet, 1 TAB PO DAILY for supplement, #30 TAB 5 Refills 11/20/17 [Vitamn B 1] No Conflict Check, 100 DAILY for suppplement 11/20/17 Calcium Carbonate (CALCIUM) 600 Mg Tablet, 600 MG PO DAILY for supplement, TAB 11/20/17 Ferrous Sulfate (FERROUS SULFATE) 325 Mg Tablet, 65 MG PO DAILY for supplement, TAB 11/20/17 Aspirin (ASPIRIN) 81 Mg Tab.chew, 1 TAB PO DAILY for heart healthy, #30 TAB 3 Refills 11/06/17 Metoprolol Tartrate (METOPROLOL TARTRATE) 25 Mg Tablet, 1 TAB PO DAILY for heart rhythm, #180 TAB 1 Refill 10/09/17 Amlodipine Besylate (AMLODIPINE BESYLATE) 5 Mg Tablet, 5 MG PO DAILY for blood pressure, TAB 10/09/17 Clonazepam (CLONAZEPAM) 1 Mg Tablet, 1 MG PO QID for nerves, TAB 10/09/17 Omeprazole (OMEPRAZOLE) 40 Mg Capsule.dr, 1 CAP PO BIDPCLD for stomach, #30 CAP 3 Refills 10/09/17 Lisinopril (LISINOPRIL) 5 Mg Tablet, 2 TAB PO DAILY for bp, #30 TAB 5 Refills 10/09/17 Atorvastatin Calcium (ATORVASTATIN CALCIUM) 40 Mg Tablet, 1 TAB PO DAILY for cholesterol, #30 TAB 5 Refills 10/09/17 KULWANT JUAREZ MD May 25, 2019 12:15
--- NOTE | 2019-05-25 13:04 | NUR ---
SS following up with discharge planning. PT recommended correction unit. Pt requesting to go to [facility]. SS phoned and faxed referral to [facility], ; fax [phone]. Pt accepted. SS phoned and faxed discharge orders to [facility]. Pt will discharge today and go [facility] 1530[facility], pt's family, and pt's RN notified.
--- NOTE | 2019-05-25 14:04 | PDOC ---
PROGRESS NOTES Subjective Subjective sitting in bed some right leg pain but improved feels that he is walking much better at BS Objective Objective Vital Signs Date Time Temp Pulse Resp B/P (MAP) Pulse Ox O2 Delivery O2 Flow Rate FiO2 05/25/19 11:00 97.7 61 16 122/71 (88) 96 Room Air 97.7 05/24/19 20:00 1.0 Intake and Output 05/25/19 07:00 Intake Total 120 ml Output Total 0 ml Balance 120 ml Intake Oral 120 ml Output Urine Total 0 ml # Voids 2 Physical Exam General: Alert, Oriented X3, Cooperative, No acute distress MUSCULOSKELETAL: Other (SUTTON) Skin: Other (Dressing C,D,I, flat) Plan Plan of Care ok to dc to SNF f/u 2 weeks Comment Review of Relevant I have reviewed the following items edson (where applicable) has been applied. Medications Current Medications Ondansetron HCl (Zofran) 4 mg PRN Q6HRS PRN IV NAUSEA/VOMITING; Start 05/21/19 at 07:00; Stop 05/22/19 at 06:59; Status DC Fentanyl Citrate (Fentanyl 2ml Vial) 25 mcg PRN Q5MIN PRN IV MILD PAIN 1-3; Start 05/21/19 at 07:00; Stop 05/22/19 at 06:59; Status DC Fentanyl Citrate (Fentanyl 2ml Vial) 50 mcg PRN Q5MIN PRN IV MODERATE TO SEVERE PAIN Last administered on 05/21/19at 15:38; Start 05/21/19 at 07:00; Stop 05/22/19 at 06:59; Status DC Morphine Sulfate (Morphine Sulfate) 1 mg PRN Q10MIN PRN IV SEVERE PAIN 7-10 Last administered on 05/21/19at 15:11; Start 05/21/19 at 07:00; Stop 05/22/19 at 06:59; Status DC Ringer's Solution 1,000 ml @ 30 mls/hr Q24H IV Last administered on 05/21/19at 07:53; Start 05/21/19 at 07:00; Stop 05/21/19 at 18:59; Status DC Lidocaine HCl (Xylocaine-Mpf 1% 2ml Vial) 2 ml PRN 1X PRN ID PRIOR TO IV START; Start 05/21/19 at 07:00; Stop 05/22/19 at 06:59; Status DC Hydromorphone HCl (Dilaudid) 0.5 mg PRN Q10MIN PRN IV SEV PAIN, Second choice Last administered on 05/21/19 15:42; Start 05/21/19 at 07:00; Stop 05/22/19 at 06:59; Status DC Prochlorperazine Edisylate (Compazine) 5 mg PACU PRN PRN IV NAUSEA, MRX1 Last administered on 05/21/19at 15:11; Start 05/21/19 at 07:00; Stop 05/22/19 at 06:59; Status DC Bacitracin 86872 unit/Sodium Chloride 1,000 ml @ 1,000 mls/hr 1X ONCE IRR Last administered on 05/21/19at 09:44; Start 05/21/19 at 06:00; Stop 05/21/19 at 06:59; Status DC Bupivacaine HCl/ Epinephrine Bitart (Sensorcaine-Epi 0.25%-1:269113 Mpf) 30 ml STK-MED ONCE .ROUTE ; Start 05/21/19 at 06:08; Stop 05/21/19 at 07:08; Status DC Bupivacaine HCl/ Epinephrine Bitart (Sensorcain-Mpf Epi 0.5%-1:[id number]) 30 ml STK-MED ONCE .ROUTE Last administered on 05/21/19at 09:44; Start 05/21/19 at 06:13; Stop 05/21/19 at 07:14; Status DC Thrombin (Thrombin Topical) 5,000 unit STK-MED ONCE .ROUTE ; Start 05/21/19 at 06:13; Stop 05/21/19 at 07:14; Status DC Ketorolac Tromethamine (Toradol For Or Only) 60 mg STK-MED ONCE .ROUTE Last administered on 05/21/19at 09:44; Start 05/21/19 at 06:14; Stop 05/21/19 at 07:14; Status DC Cellulose (Surgicel Fibrillar 1x2) 1 each STK-MED ONCE .ROUTE Last administered on 05/21/19 13:18; Start 05/21/19 at 06:19; Stop 05/21/19 at 07:20; Status DC Thrombin 20,000 unit STK-MED ONCE TP Last administered on 8/1/19at 09:44; Start 05/21/19 at 06:33; Stop 05/21/19 at 07:33; Status DC Propofol 20 ml @ As Directed STK-MED ONCE IV ; Start 05/21/19 at 08:14; Stop 05/21/19 at 08:15; Status DC Dexamethasone Sodium Phosphate (Decadron) 20 mg STK-MED ONCE .ROUTE ; Start 05/21/19 at 08:14; Stop 05/21/19 at 08:16; Status DC Lidocaine HCl (Lidocaine Pf 2% Vial) 5 ml STK-MED ONCE .ROUTE ; Start 05/21/19 at 08:14; Stop 05/21/19 at 08:16; Status DC Ondansetron HCl (Zofran) 4 mg STK-MED ONCE .ROUTE ; Start 05/21/19 at 08:14; Stop 05/21/19 at 08:16; Status DC Phenylephrine HCl (Lupillo-Synephrine Inj) 10 mg STK-MED ONCE .ROUTE ; Start 05/21/19 at 08:14; Stop 05/21/19 at 08:16; Status DC Rocuronium [place] (Zemuron) 50 mg STK-MED ONCE .ROUTE ; Start 05/21/19 at 08:15; Stop 05/21/19 at 08:16; Status DC Midazolam HCl (Versed) 2 mg STK-MED ONCE .ROUTE ; Start 05/21/19 at 08:15; Stop 05/21/19 at 08:16; Status DC Remifentanil HCl (Ultiva) 2 mg STK-MED ONCE IV ; Start 05/21/19 at 08:15; Stop 05/21/19 at 08:16; Status DC Sodium Chloride (SODIUM CHLORIDE 20ml) 20 ml STK-MED ONCE IJ ; Start 05/21/19 at 08:15; Stop 05/21/19 at 08:16; Status DC Propofol 50 ml @ As Directed STK-MED ONCE IV ; Start 05/21/19 at 08:15; Stop 05/21/19 at 08:16; Status DC Multi-Ingred Cream/Lotion/Oil/ Oint (Artificial Tears Eye Ointment) 7 michelle STK- MED ONCE .ROUTE ; Start 05/21/19 at 08:16; Stop 05/21/19 at 08:17; Status DC Sodium Chloride (SODIUM CHLORIDE 20ml) 20 ml STK-MED ONCE IJ ; Start 05/21/19 at 08:18; Stop 05/21/19 at 08:19; Status DC Propofol 100 ml @ As Directed STK-MED ONCE IV ; Start 05/21/19 at 07:28; Stop 05/21/19 at 08:28; Status DC Ketamine HCl (Ketamine) 50 mg STK-MED ONCE .ROUTE ; Start 05/21/19 at 09:24; Stop 05/21/19 at 09:25; Status DC Cefazolin Sodium/ Dextrose 50 ml @ 100 mls/hr 1X ONCE IV Last administered on 05/21/19at 09:17; Start 05/21/19 at 10:00; Stop 05/21/19 at 10:29; Status DC Cefazolin Sodium (Ancef) 1 gm STK-MED ONCE .ROUTE ; Start 05/21/19 at 09:54; Stop 05/21/19 at 09:55; Status DC Desflurane (Suprane) 90 ml STK-MED ONCE IH ; Start 05/21/19 at 10:21; Stop 05/21/19 at 10:22; Status DC Remifentanil HCl (Ultiva) 2 mg STK-MED ONCE IV ; Start 05/21/19 at 10:51; Stop 05/21/19 at 10:52; Status DC Amlodipine Besylate (Norvasc) 5 mg DAILY PO ; Start 05/22/19 at 09:00; Stop 05/22/19 at 09:00; Status DC Aspirin (Children'S Aspirin) 81 mg DAILY PO Last administered on 05/25/19at 08:37; Start 05/22/19 at 09:00 Atorvastatin Calcium (Lipitor) 40 mg QHS PO Last administered on 05/24/19at 20:50; Start 05/21/19 at 21:00 Vitamin D (Vitamin D3) 1,000 unit DAILY PO Last administered on 05/25/19at 08:40; Start 05/22/19 at 09:00 Clonazepam (KlonoPIN) 1 mg QID PO Last administered on 05/25/19at 11:48; Start 05/21/19 at 17:00 Cyanocobalamin (Vitamin B-12) 500 mcg DAILY PO Last administered on 05/25/19at 08:40; Start 05/22/19 at 09:00 Docusate Sodium (Colace) 100 mg BID PO Last administered on 05/25/19 08:37; Start 05/21/19 at 21:00 Ferrous Sulfate (Feosol) 325 mg DAILY PO Last administered on 05/25/19 08:40; Start 05/22/19 at 09:00 Metoprolol Tartrate (Lopressor) 25 mg DAILY PO Last administered on 05/25/19 08:40; Start 05/22/19 at 09:00 Calcium Carbonate/ Glycine (Oscal) 500 mg DAILY PO Last administered on 05/25/19 08:37; Start 05/22/19 at 09:00 Gabapentin (Neurontin) 300 mg DAILY PO Last administered on 05/25/19 08:39; Start 05/22/19 at 09:00 Lisinopril (Prinivil) 10 mg DAILY PO Last administered on 05/23/19 09:10; Start 05/22/19 at 09:00; Stop 05/23/19 at 12:04; Status DC Multivitamins (Thera M Plus) 1 tab DAILY PO Last administered on 05/25/19 08:37; Start 05/22/19 at 09:00 Pantoprazole Sodium (Protonix) 40 mg DAILYAC PO ; Start 05/22/19 at 07:30; Stop 05/22/19 at 07:30; Status DC Primidone (Mysoline) 250 mg BID PO Last administered on 05/25/19 08:39; Start 05/21/19 at 21:00 Fentanyl Citrate (Fentanyl 2ml Vial) 50 mcg PRN Q2HR PRN IV PAIN Last administered on 05/24/19 05:18; Start 05/21/19 at 11:45 Acetaminophen (Tylenol) 650 mg PRN Q6HRS PRN PO MILD PAIN / TEMP; Start 05/21/19 at 11:45 Al Hydroxide/Mg Hydroxide (Mylanta Plus Xs) 30 ml PRN Q3HRS PRN PO HEARTBURN / GAS Last administered on 05/23/19 17:37; Start 05/21/19 at 11:45 Calcium Carbonate/ Glycine (Tums) 500 mg PRN Q3HRS PRN PO INDIGESTION Last administered on 05/24/19 01:06; Start 05/21/19 at 11:45 Diphenhydramine HCl (Benadryl) 25 mg PRN Q6HRS PRN PO ITCHING; Start 05/21/19 at 11:45 Zolpidem Tartrate (Ambien) 5 mg PRN QHS PRN PO INSOMNIA, MAY REPEAT IN 1HR Last administered on 05/24/19at 20:50; Start 05/21/19 at 21:00 Naloxone HCl (Narcan) 0.1 mg PRN Q2MIN PRN IV ADMIN; Start 05/21/19 at 11:45 Sodium Chloride (Normal Saline Flush) 3 ml QSHIFT PRN IV AFTER MEDS AND BLOOD DRAWS; Start 05/21/19 at 11:45 Potassium Chloride/Dextrose/ Sod Cl 1,000 ml @ 75 mls/hr [id number] IV ; Start 05/21/19 at 14:00; Stop 05/23/19 at 12:18; Status DC Methocarbamol (Robaxin) 750 mg TID PRN PO MUSCLE SPASMS Last administered on 05/22/19at 07:36; Start 05/21/19 at 11:45 Docusate Sodium (Colace) 100 mg BID PO ; Start 05/21/19 at 21:00; Status UNV Magnesium Hydroxide (Milk Of Magnesia) 2,400 mg PRN Q12HR PRN PO CONSTIPATION Last administered on 05/22/19at 16:41; Start 05/21/19 at 11:45 Ondansetron HCl (Zofran) 4 mg PRN Q6HRS PRN IV NAUESA, 1ST CHOICE; Start 05/21/19 at 11:45 Cefazolin Sodium 1 gm/Dextrose 50 ml @ 100 mls/hr Q8HRS IV ; Start 05/21/19 at 14:00; Stop 05/21/19 at 16:17; Status DC Oxycodone/ Acetaminophen (Percocet 10/325) 1 tab PRN Q6HRS PRN PO MODERATE PAIN Last administered on 05/21/19at 16:47; Start 05/21/19 at 11:45 Oxycodone/ Acetaminophen (Percocet 10/325) 2 tab PRN Q6HRS PRN PO SEVERE PAIN Last administered on 05/25/19at 08:41; Start 05/21/19 at 11:45 Cefazolin Sodium/ Dextrose 50 ml @ 100 mls/hr 1X ONCE IV Last administered on 05/21/19at 13:15; Start 05/21/19 at 13:15; Stop 05/21/19 at 13:44; Status DC Fentanyl Citrate (Fentanyl 2ml Vial) 100 mcg STK-MED ONCE .ROUTE ; Start 05/21/19 at 14:57; Stop 05/21/19 at 14:58; Status DC Morphine Sulfate (Morphine Sulfate) 2 mg STK-MED ONCE .ROUTE ; Start 05/21/19 at 15:06; Stop 05/21/19 at 15:07; Status DC Prochlorperazine Edisylate (Compazine) 10 mg STK-MED ONCE .ROUTE ; Start 05/21/19 at 15:06; Stop 05/21/19 at 15:07; Status DC Hydromorphone HCl (Dilaudid) 2 mg STK-MED ONCE .ROUTE ; Start 05/21/19 at 15:28; Stop 05/21/19 at 15:29; Status DC Cefazolin Sodium (Ancef) 1 gm Q8HRS IVP Last administered on 05/22/19at 13:01; Start 05/21/19 at 22:00; Stop 05/22/19 at 14:01; Status DC Pantoprazole Sodium (Protonix) 40 mg BIDAC PO Last administered on 05/25/19at 08:37; Start 05/21/19 at 18:30 Polyethylene Glycol (miraLAX PACKET) 17 gm BID PO Last administered on 05/24/19at 14:20; Start 05/21/19 at 21:00 Amlodipine Besylate (Norvasc) 2.5 mg DAILY PO ; Start 05/23/19 at 18:00; Stop 05/23/19 at 18:00; Status DC Lisinopril (Prinivil) 10 mg DAILY PO Last administered on 05/25/19at 08:39; Start 05/24/19 at 09:00 Active Scripts Active Colace (Docusate Sodium) 100 Mg Capsule 100 Mg PO BID Reported Percocet 7.5-325 Mg Tablet (Oxycodone/Acetaminophen) 1 Each Tablet 1 Tab PO PRN Q6HRS PRN Gabapentin 600 Mg Tablet 300 Mg PO DAILY Meloxicam 15 Mg Tablet 1 Tab PO DAILY Mysoline (Primidone) 250 Mg Tablet 250 Mg PO BID Men's Multi-Vitamin (Multivitamin) 1 Each Tablet 1 Each PO DAILY Vitamin B-12 (Cyanocobalamin (Vitamin B-12)) 1,000 Mcg Tablet 500 Mcg PO DAILY Vitamin D3 (Cholecalciferol (Vitamin D3)) 1,000 Unit Tablet 1 Tab PO DAILY [Vitamn B 1] 100 DAILY Calcium (Calcium Carbonate) 600 Mg Tablet 600 Mg PO DAILY Ferrous Sulfate 325 Mg Tablet 65 Mg PO DAILY Aspirin 81 Mg Tab.chew 1 Tab PO DAILY Metoprolol Tartrate 25 Mg Tablet 1 Tab PO DAILY Amlodipine Besylate 5 Mg Tablet 5 Mg PO DAILY Clonazepam 1 Mg Tablet 1 Mg PO QID Omeprazole 40 Mg Capsule.dr 1 Cap PO BIDPCLD Lisinopril 5 Mg Tablet 2 Tab PO DAILY Atorvastatin Calcium 40 Mg Tablet 1 Tab PO DAILY Vitals/I & O Vital Sign - Last 24 Hours 05/24/19 05/24/19 05/24/19 05/24/19 14:18 15:20 19:00 20:00 Temp 97.7 98.5 97.7 98.5 Pulse 69 74 Resp 18 B/P (MAP) 90/55 (67) 148/83 (104) Pulse Ox 99 98 O2 Delivery Room Air Room Air Room Air Room Air O2 Flow Rate 1.0 05/24/19 05/25/19 05/25/19 05/25/19 23:00 02:38 03:00 07:00 Temp 98.0 98.4 97.7 98.0 98.4 97.7 Pulse 88 76 79 Resp 18 16 B/P (MAP) 101/62 (75) 124/79 (94) 147/83 (104) Pulse Ox 94 95 99 O2 Delivery Room Air Room Air Room Air Room Air 05/25/19 05/25/19 05/25/19 05/25/19 08:00 08:39 08:40 08:41 Pulse 79 79 B/P (MAP) 147/83 147/83 O2 Delivery Room Air Room Air 05/25/19 05/25/19 09:54 11:00 Temp 97.7 97.7 Pulse 61 Resp 16 B/P (MAP) 122/71 (88) Pulse Ox 96 O2 Delivery Room Air Room Air Intake and Output 05/24/19 05/24/19 05/25/19 15:00 23:00 07:00 Intake Total 120 ml Output Total 0 ml 0 ml Balance 120 ml 0 ml 0 ml MAGALIE CLINE APRN May 25, 2019 14:04
--- NOTE | 2019-05-25 15:42 | NUR ---
Discharge Note: PT DISCHARGED TO [facility]. PT LEFT FACILITY [facility]IA [facility]. PT LEFT FACILITY AT 1525 WITH AND TRANSPORT STAFF. PT STABLE AND ALERT UPON DISHARGE. [facility] MOTOR MECHANIC BRAULIO NOTIFIED OF DISCHARGE INSTRUCTIONS, DISCHARGE MEDICATIONS, AND FOLLOW-UP INSTRUCTIONS, NO CONCERNS VOICED AT THIS TIME. ELIJAH OZUNA Discharge instructions and discharge home medications reviewed with Other facility and a copy given. All questions have been answered and understanding verbalized.
--- NOTE | 2019-05-25 18:06 | PATHOLOGY ---
[facility] Accession Number: [id number] . 01 Material submitted: . vertebral column - LUMBAR DECOMPRESSION . 01 Clinical history: . Lumbar spondylolisthesis, herniated disc ,radiculopathy, stenosis, back pain . 02 Diagnosis: Segments of fibrocartilaginous, fibroadipose, and skeletal muscle tissue and bone, lumbar decompression: - Degenerative changes of fibrocartilaginous tissue. 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 02 Comment: There is no evidence of an acute inflammatory process or malignancy. 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 02 Electronically signed: . Eliazar Dent MD, Pathologist NPI- [id number] . 01 Gross description: . The specimen is received in formalin, labeled "Tearney, Rahul, lumbar decompression ", are multiple irregular fragments of rodriguez-yellow and gritty tissue possibly admixed with bone spicule measuring 3.5 x 3.5 x 1.0 cm in aggregate. Representatively submitted in A1, after decalcification. ([facility]; 05/22/2019) SHS/SHS . 02 Pathologist provided ICD-10: M51.36 . 02 CPT . 214270, [id number] Specimen Comment: A courtesy copy of this report has been sent to Specimen Comment: [phone], . Specimen Comment: Report sent to / DR CRANE Performed at: 01 [facility] [address], [place], [place] [id number] MD Henry Domínguez MD Phone: [phone] Performed at: 02 [facility] [address], [place] [id number] MD Eliazar Dent MD Phone: [phone]
--- NOTE | 2019-05-28 11:04 | HP ---
ADMIT DATE: 05/21/2019 DATE OF SURGERY: 05/21/2019. HISTORY OF PRESENT ILLNESS: The patient is a pleasant 63-year-old man who approximately 2 months ago underwent a lumbar microdiscectomy at L4-L5 on the right. He said he did very well for about a week and then he woke up approximately a week after surgery with back pain and pain in his right leg again. He says the pain has continued to worsen since that time. The pain is constant. He says he must change positions frequently. He had oral steroids, which were not of benefit. He is taking Percocet as well as gabapentin. CURRENT MEDICATIONS: Lisinopril, primidone, clonazepam, omeprazole, iron, multivitamin, aspirin, oxycodone, atorvastatin, amlodipine, metoprolol, meloxicam and gabapentin. ALLERGIES: No known drug allergies. PAST MEDICAL HISTORY: Heart disease, hypertension, arthritis, headaches, hepatitis C, head/neck injury. PAST SURGICAL HISTORY: Cardiac bypass surgery in 2005, left shoulder surgery in 2007, cervical laminectomy and fusion C3 through C6 in 05/2013; lumbar microdiskectomy L4-L5, right in 02/2019. FAMILY HISTORY: Cancer, heart disease, hypertension, spine problems, migraine headaches. SOCIAL HISTORY: Retired. Quit smoking approximately 5 years ago. Drinks alcohol 1-2 times per week. REVIEW OF SYSTEMS: A 12-point review of systems was performed and is noncontributory except that mentioned above. PHYSICAL EXAMINATION GENERAL: Alert, pleasant. HEENT: Normocephalic, atraumatic. SKIN: Warm and dry. BACK: Mild tenderness with palpation of the lower lumbar spine. The lumbar incision is well-healed. MUSCULOSKELETAL: Lumbar range of motion is restricted. EXTREMITIES: No clubbing, cyanosis or edema. NEUROLOGIC: Alert and oriented x 3. Strength is 5/5 in the bilateral lower extremities, sensory was intact to light touch in the lower extremities, reflexes were present and symmetric in the lower extremities, antalgic gait. IMAGING DATA: I reviewed a lumbar MRI scan from 03/26. On that study, there is anterolisthesis at L4-L5 that has worsened from his previous study. There is a focal central/right paracentral disk extrusion. There is central stenosis measuring 7 mm and bilateral foraminal stenosis. ASSESSMENT AND PLAN: We reviewed the MRI scan and spoke about treatment options. We spoke about a spinal cord stimulator versus surgery, which would include instrumentation and fusion. We spoke about the degenerative changes in the lumbar spine and the possibility of requiring further surgery in the future. We spoke about the possibility that surgery may not help him or he could be worse. He and his understand and they would like to proceed with surgery. I have recommended a decompression at L4-L5 with interbody fusion cage and posterior instrumentation with posterolateral fusion. We spoke about the surgery including the technique, the risk and the expected postoperative course. They understand that they would like to proceed. KULWANT JUAREZ MD DR: HUMBERTO/aleks JOB#: [id number] / [id number] BERNARD
--- NOTE | 2019-05-28 19:25 | OP ---
DATE OF SURGERY: 05/21/2019 PREOPERATIVE DIAGNOSIS: Spondylolisthesis and herniated lumbar disc at L4-L5 with right lumbar radiculopathy. POSTOPERATIVE DIAGNOSIS: Spondylolisthesis and herniated lumbar disc at L4-L5 with right lumbar radiculopathy. OPERATION PERFORMED: 1. Lumbar laminectomy and microdiscectomy, right direct L4-L5. 2. Posterior instrumentation, L4-L5. 3. Posterolateral fusion, L4-L5. The operation was done with EMG monitoring, SSEP monitoring, fluoroscopy, microscopic dissection, stimulated EMG monitoring, BrainLAB guidance. SURGEON: Edward Juarez M.D. HEADING SAW OPERATOR: ALEX Fragoso, assisted with the instrumentation and decompression. OPERATIVE INDICATIONS: The patient is a pleasant 64-year-old man who developed intractable back and right leg pain and was found to have developed spondylolisthesis following recent lumbar surgery. On imaging studies, there was evidence of disc recurrence as well as spondylolisthesis and I recommended surgery with an instrumented fusion and decompression. He understood the surgery and the risks, the technique and expected postoperative course and he wished to go ahead. DESCRIPTION OF PROCEDURE: Following general endotracheal anesthesia, the patient was positioned prone on the Rusty table. Lumbar region prepped and draped in standard fashion. KARLENE hose and AV impulse boots were applied for DVT prophylaxis. The microscope was draped. Fluoroscopy was draped and brought into the field. Monitoring was established. Ancef 2 grams was given less than 1 hour prior to initiation of the surgery. Iliac posts were placed into the iliac crest and the BrainLAB system was attached and initialized. I then made a midline incision extending from superior L4 to inferior L5, dissected down through skin and subcutaneous tissue and reflected the paraspinal muscles first toward the left side. I placed a self-retaining retractor. I brought in the microscope. I drilled into the posterior aspect of the pedicles of L4 and L5 as well as excoriated the lateral facets and transverse processes. I did place a needle into the right iliac crest and aspirated 20 mL of bone marrow. Using the Turning Arter instrumentation system, I placed two 6.5 diameter screws, 1 in L4 and L5 and during this time, I also placed allograft bone in the lateral gutter on the left side. The ivy was placed. The system was not yet torqued and I went to the right side in a similar fashion, drilled the openings for the pedicle screws of L4 and L5. I used stimulated EMG monitoring for all of the pedicles, first drilling the posterior aspect of the pedicle then passing the black ball then passing the tap and then screw placement. On this side, I excoriated the transverse process and the lateral pedicles and again passed allograft bone into the right lateral gutter. I did place the L4 screw, but not the L5 screw, but at this point, I brought in the microscope and using high speed air drill, I burred down generous laminectomy centered on the right side. There was considerable scarring which it took some time to work through. I visualized the L5 root as well as the L4 root and I passed along the medial aspect of the pedicle of L4 and I assured myself that there was no disc fragment compressing the L4 root. Inferior to the L4 root, there was a good deal of hard disc and I drilled down through this with the high speed air drill. I removed disc material as well as hypertrophic bone in this location and fully decompressed the entire region. At this point, then I felt that I had an excellent decompression. There were some difficulties, which limited my exposure due to dense scar formation, but all in all, I felt that I had an excellent decompression centered on the right side at L4-L5 and then I placed a screw in L5, placed the ivy, torqued in sequential fashion to help obtain a reduction of spondylolisthesis and torqued in a sequential fashion creating what I felt was a very good alignment. At this point, then I had a lateral bone in the gutters at L4 and L5. Bilaterally, the pedicle screws were placed in appropriate position. I irrigated copiously with antibiotic solution. Then I closed the wound in layers with absorbable suture and skin was closed with a 4-0 subcuticular stitch. The operation went very well and the patient was taken to recovery room in excellent condition. I was quite pleased with the surgery. EDWARD JUAREZ MD DR: TD/aleks JOB#: [id number] / [id number] BERNARD
== END 2019-05-25 15:45 | DRG 460 ==
LOC: OPSVCIP 07:09 → 4 SOUTHEST 16:15 → 4 NORTH 05-22 17:01
PROVIDERS: ADMIT Neurological Surgery; ATTEND Neurological Surgery
PROC: 0SB20ZZ Excision of Lumbar Vertebral Disc, Open Approach (ICD-10-PCS; 2019-05-21)
PROC: 4A11X4G Monitoring of Peripheral Nervous Electrical Activity, Intraoperative, External Approach (ICD-10-PCS; 2019-05-21)
PROC: 01NB0ZZ Release Lumbar Nerve, Open Approach (ICD-10-PCS; 2019-05-21)
PROC: 0SG00K1 Fusion of Lumbar Vertebral Joint with Nonautologous Tissue Substitute, Posterior Approach, Posterior Column, Open Approach (ICD-10-PCS; principal; 2019-05-21 08:30)
DX: M51.16 Intervertebral disc disorders with radiculopathy, lumbar region (principal); E78.5 Hyperlipidemia, unspecified; I10 Essential (primary) hypertension; I25.10 Atherosclerotic heart disease of native coronary artery without angina pectoris; K21.9 Gastro-esophageal reflux disease without esophagitis; M43.10 Spondylolisthesis, site unspecified; G62.9 Polyneuropathy, unspecified; M19.90 Unspecified osteoarthritis, unspecified site; Z82.49 Family history of ischemic heart disease and other diseases of the circulatory system; Z95.1 Presence of aortocoronary bypass graft; Z95.5 Presence of coronary angioplasty implant and graft; Z87.891 Personal history of nicotine dependence
CPT/HCPCS: 36415; 76000; 80048; 86850; 86900; 86901; 88304; 88311; A7015; C1713; C9359; J0690; J0696; J0780; J1100; J1170; J1885; J2001; J2250; J2270; J2405; J2704; J3010; J3490; J7030; J7120; 97110; 97116; 97530; 97535; G0378

== ENCOUNTER 2019-06-29 06:10 | Observation (INO) | payer MEDICARE ==
[~2019-06-29] VITALS: Ht 185.4 cm; Wt 87.5 kg
[2019-06-29] VITALS (15 sets, daily range): BP systolic 114–156; BP diastolic 60–83
[~2019-06-29 06:10] MED LIST changes: -BACITRACIN 50,000 UNIT in IV NORMAL SALINE 1000ML BAG 1,000 ML IRR ONE; +BACITRACIN 50,000 UNIT in IV NORMAL SALINE 500ML BAG 500 ML IRR ONE; -BUPIVAC MPF-EPI 0.5%-1:200000 30 ML VIAL. ONE; -BUPIVACAINE-EPI 0.25%-1:200000 MPF 30 ML VIAL. ONE; +BUPIVACAINE-EPI 0.5%-1:200000 MPF 30 ML VIAL. INJ ONE; -CLON1TAB11 PO; +CLONAZEPAM1 MG PO; -IV RINGERS,LACTATED 1000ML 1,000 ML IV SCH; -KETOROLAC 60 MG/2 ML INJ FOR OR. ONE; -LIDOCAINE 1% PF 2 ML VIAL. ID PRN; -MELA3TAB2 PO; +MELA3TAB56 PO; -MORPHINE SULFATE 2 MG/ML VIAL. IV PRN; -ONDANSETRON PF 4 MG/2 ML VIAL. IV PRN; +OXYC1TAB22 PO; -PROCHLORPERAZINE 10 MG/2 ML VIAL. IV PRN; -SURGICEL FIBRILLAR 1X2 EACH. ONE; -THROMBIN TOPICAL 20,000 UNIT SPRAY.SYRN KIT TP ONE; -THROMBIN TOPICAL 5,000 UNIT VIAL. ONE; -fentaNYL PF VIAL 100 MCG/2 ML VIAL IV PRN
[2019-06-29] MEDS: IV RINGERS,LACTATED 1000ML 1,000 ML IV SCH ×2 (06:41→10:02)
[2019-06-29] MEDS ORDERED: PROCHLORPERAZINE 10 MG/2 ML VIAL. IV PRN (07:00)
[2019-06-29] MEDS ORDERED: HYDROmorphone 2 MG/ML VIAL IV PRN ×2 (07:00→11:30)
[2019-06-29] MEDS ORDERED: MORPHINE SULFATE 2 MG/ML VIAL. IV PRN (07:00)
[2019-06-29] MEDS ORDERED: ONDANSETRON PF 4 MG/2 ML VIAL. IV PRN (07:00)
[2019-06-29] MEDS ORDERED: fentaNYL PF VIAL 100 MCG/2 ML VIAL IV PRN (07:00)
[2019-06-29] MEDS ORDERED: LIDOCAINE 1% PF 2 ML VIAL. ID PRN (07:00)
[2019-06-29] MEDS ORDERED: PROPOFOL 20 ML IV ONE (07:29)
[2019-06-29] MEDS ORDERED: SEVOFLURANE 31 TO 60 MINUTES. IH ONE (07:29)
[2019-06-29] MEDS ORDERED: MIDAZOLAM HCL/PF 2 MG/2 ML VIAL. ONE (07:29)
[2019-06-29] MEDS ORDERED: LIDOCAINE 2% PF 5 ML VIAL. ONE (07:29)
[2019-06-29] MEDS ORDERED: ONDANSETRON PF 4 MG/2 ML VIAL. ONE (07:29)
[2019-06-29] MEDS ORDERED: DEXAMETHASONE SOD PHOS 4 MG/ML VIAL ONE (07:29)
[2019-06-29] MEDS ORDERED: fentaNYL PF VIAL 100 MCG/2 ML VIAL ONE ×2 (07:29→09:18)
[2019-06-29] MEDS ORDERED: ePHEDrine PF IN SALINE 50 MG/10 ML SYRINGE. IV ONE (07:45)
[2019-06-29] MEDS ORDERED: GLYCOPYRROLATE 1 MG/5 ML VIAL. ONE (07:53)
[2019-06-29] MEDS: fentaNYL PF VIAL 100 MCG/2 ML VIAL IV PRN ×2 (09:21→09:42)
--- NOTE | 2019-06-29 09:24 | PDOC4 ---
Operative Note Operative Note Operative Note: Preoperative Diagnosis: Left inguinal hernia Postoperative Diagnosis: Same Procedure: Left inguinal hernia repair with mesh Surgeon: Joao [employer] Supervisor: Clair GARCIA Anesthesia: Gen. EBL: 10 mL Specimen: None Drains: None Complications: None Indication: The patient is a 64-year-old male who was referred with a left inguinal hernia. He was offered surgical repair. The risks of surgery were discussed which include bleeding, infection, recurrence, pain, anesthetic risk, urinary retention, potential need for additional surgery or procedure. He understands and would like to proceed. Description: The patient was taken to the operating room and placed supine on the operating table. Gen. anesthesia was performed. The left groin was shaved and prepped with ChloraPrep and draped in a standard surgical manner. An incision was made in the skin lines of the left groin area cautery dissection was carried down to the external oblique aponeurosis. The aponeurosis was opened down to the external ring. The contents of the inguinal canal were digitally mobilized and encircled with a Heaven drain. There was no evidence of a indirect hernia sac. There was a moderate sized direct hernia. The edges of the hernia were mobilized from the surrounding tissues. The attenuated transversalis was opened exposing the preperitoneal fat. All of the herniated contents were reduced and the defect filled with an extra large Phasix mesh plug. The plug was sutured around its periphery with 2-0 Vicryl. A 3 x 6" Prolene mesh patch was then used to reinforce the inguinal floor as an onlay. The patch was trimmed and tailored to the size of the inguinal floor. The mesh was sutured around its periphery with interrupted 2-0 Vicryl. A slit was made to accommodate the cord structures. Upon completion the mesh rested well providing full coverage of the inguinal floor and the plug remained intact deep to it. Hemostasis was good. The external oblique was closed over the mesh with 2-0 Vicryl. The subcutaneous tissue was closed with 3-0 Vicryl. The skin was approximated with 4-0 Monocryl and infiltrated with half percent Marcaine with epinephrine. Steri-Strips and a sterile dressing were applied. The patient tolerated the procedure well and was sent to the recovery room in stable condition. At the end of the case all counts were correct. HASMUKH HUERTA MD Jun 29, 2019 09:24
--- NOTE | 2019-06-29 09:28 | DISCH ---
DISCHARGE INSTRUCTIONS Condition on Discharge Condition on Discharge: Stable Activity After Discharge Activity Instructions for Disc: Other, see below (no lifting over 20 lbs X 4 weeks) Diet after Discharge Diet after Discharge: Regular Additional Diet Restrictions: resume home diet Wound Incision Care Wound/Incision Care: Other, see below (keep dressing clean and dry X 72 hours, may then remove and shower) Follow-Up Follow up with: Dr Huerta in office in 2 weeks, call for appt [phone] HASMUKH HUERTA MD Jun 29, 2019 09:27
[2019-06-29] MEDS ORDERED: OXYC1TAB19 PO (09:39)
[2019-06-29] MEDS ORDERED: oxyCODONE/APAP 7.5/325 1 TAB TABLET PO ONE ×2 (09:45)
[2019-06-29] MEDS ORDERED: oxyCODONE/APAP 7.5/325 1 TAB TABLET PO PRN (11:30)
--- NOTE | 2019-06-29 13:38 | NUR ---
1250 Received from PACU per cart, alert/oriented, dressing to abdominal area clean, dry & intact, states discomfort level 7-8/10, ice pack applied for comfort, perez catheter in place with clear yellow urine in drainage bag, incentive spirometry inhales 2000-4000ml, saline lock intact to right wrist area, oriented to surroundings, call light in reach, spouse at bedside, see admission
[2019-06-29] MEDS: oxyCODONE/APAP 7.5/325 1 TAB TABLET PO PRN ×3 (14:20→22:22)
[2019-06-29] MEDS ORDERED: clonazePAM 1 MG TABLET PO SCH (15:00)
[2019-06-29] MEDS: CALCIUM CARBONATE 500 MG TABLET PO SCH (15:21)
[2019-06-29] MEDS: CHOLECALCIFEROL (VITAMIN D3) 1,000 UNIT TABLET PO SCH (15:21)
[2019-06-29] MEDS: CYANOCOBALAMIN (VITAMIN B-12) 1,000 MCG TABLET. PO SCH (15:21)
[2019-06-29] MEDS: FERROUS SULFATE 325 MG TABLET. PO SCH (15:21)
[2019-06-29] MEDS: ASPIRIN CHEWABLE 81 MG TABLET. PO SCH (15:21)
[2019-06-29] MEDS: amLODIPine BESYLATE 5 MG TABLET PO SCH (15:22)
[2019-06-29] MEDS: LISINOPRIL 5 MG TABLET. PO SCH (15:23)
[2019-06-29] MEDS: METOPROLOL TART IMMED RELEASE 25 MG TABLET. PO SCH (15:23)
[2019-06-29] MEDS: BENZOCAINE/MENTHOL LOZENGE. PO PRN ×2 (15:24→18:22)
[2019-06-29] MEDS: PYRIDOXINE 50 MG TABLET. PO SCH (16:48)
[2019-06-29] MEDS: PANTOPRAZOLE 40 MG TABLET.DR. PO SCH (16:48)
[2019-06-29] MEDS: clonazePAM 0.5 MG TABLET PO SCH (20:42)
[2019-06-29] MEDS: DOCUSATE SODIUM 100 MG CAPSULE. PO SCH (20:42)
[2019-06-29] MEDS: PRIMIDONE 250 MG TABLET PO SCH (20:42)
[2019-06-29] MEDS ORDERED: ATORVASTATIN CALCIUM 40 MG TABLET. PO SCH (21:00)
[2019-06-30] MEDS: oxyCODONE/APAP 7.5/325 1 TAB TABLET PO PRN ×3 (02:32→10:54)
[2019-06-30 03:00] VITALS: BP 123/71
[2019-06-30 07:00] VITALS: BP 125/71
[2019-06-30] MEDS: FERROUS SULFATE 325 MG TABLET. PO SCH (07:04)
[2019-06-30] MEDS: LISINOPRIL 5 MG TABLET. PO SCH (08:34)
[2019-06-30] MEDS: clonazePAM 0.5 MG TABLET PO SCH (08:34)
[2019-06-30] MEDS: amLODIPine BESYLATE 5 MG TABLET PO SCH (08:35)
[2019-06-30] MEDS: CHOLECALCIFEROL (VITAMIN D3) 1,000 UNIT TABLET PO SCH (08:35)
[2019-06-30] MEDS: ASPIRIN CHEWABLE 81 MG TABLET. PO SCH (08:35)
[2019-06-30] MEDS: CALCIUM CARBONATE 500 MG TABLET PO SCH (08:36)
[2019-06-30] MEDS: CYANOCOBALAMIN (VITAMIN B-12) 1,000 MCG TABLET. PO SCH (08:36)
[2019-06-30] MEDS: DOCUSATE SODIUM 100 MG CAPSULE. PO SCH (08:37)
[2019-06-30] MEDS: PRIMIDONE 250 MG TABLET PO SCH (08:37)
[2019-06-30] MEDS: METOPROLOL TART IMMED RELEASE 25 MG TABLET. PO SCH (08:37)
--- NOTE | 2019-06-30 08:56 | PDOC2 ---
ROMEL CASTANEDA 06/30/19 0856: UROLOGY CONSULT Date of Consult Date of Consult DATE: 06/30/19 TIME: 08:52 Reason for Consult Reason for Consult: post op urinary retention Source Source: Chart review, Patient History of Present Illness Reason for Visit: 64yo male s/p hernia repair on 06/29. We were consulted for post op urinary retention. He states that he usually has retention after surgery. He states in the past he was straight cathed once after surgery then he could urinate norm ally. He denies difficulty urinating any other times. He denies any prostate issues. Past Medical History Cardiovascular: HTN, Hyperlipidemia Musculoskeletal: low back pain Past Surgical History Past Surgical History: Hernia Repair Current Problem List Problems: (1) Urinary retention Current Medications Current Medications Current Medications Amlodipine Besylate (Norvasc) 5 mg DAILY PO Last administered on 06/30/19 08:38; Start 06/29/19 at 15:00 Aspirin (Children'S Aspirin) 81 mg DAILY PO Last administered on 06/30/19 08:38; Start 06/29/19 at 15:00 Atorvastatin Calcium (Lipitor) 40 mg QHS PO Last administered on 06/29/19at 20:43; Start 06/29/19 at 21:00 Calcium Carbonate/ Glycine (Oscal) 500 mg DAILY PO Last administered on 06/30/19at 08:38; Start 06/29/19 at 15:00 Clonazepam (KlonoPIN) 1 mg TID PO ; Start 06/29/19 at 15:00; Stop 06/29/19 at 15:34; Status DC Clonazepam (KlonoPIN) 1 mg TID PO Last administered on 06/30/19at 08:38; Start 06/29/19 at 21:00 Cyanocobalamin (Vitamin B-12) 500 mcg DAILY PO Last administered on 06/30/19at 08:38; Start 06/29/19 at 15:00 Docusate Sodium (Colace) 100 mg BID PO Last administered on 06/30/19at 08:38; Start 06/29/19 at 21:00 Fentanyl Citrate (Fentanyl 2ml Vial) 100 mcg STK-MED ONCE .ROUTE ; Start 06/29/19 at 09:18; Stop 06/29/19 at 09:18; Status DC Ferrous Sulfate (Feosol) 325 mg DAILY08 PO Last administered on 06/30/19 07:04; Start 06/29/19 at 15:00 Hydromorphone HCl (Dilaudid) 0.5 mg PRN Q2HR PRN IV Breakthrough pain; Start 06/29/19 at 11:30 Lisinopril (Prinivil) 10 mg DAILY PO Last administered on 06/30/19 08:38; Start 06/29/19 at 15:00 Metoprolol Tartrate (Lopressor) 25 mg DAILY PO Last administered on 06/30/19 08:38; Start 06/29/19 at 15:00 Multivitamins (Thera M Plus) 1 tab DAILY PO Last administered on 06/30/19 08:38; Start 06/30/19 at 09:00 Oxycodone/ Acetaminophen (Percocet 7.5/ 325) 1 tab 1X ONCE PO Last adm inistered on 06/29/19at 10:09; Start 06/29/19 at 09:45; Stop 06/29/19 at 09:46; Status DC Oxycodone/ Acetaminophen (Percocet 7.5/ 325) 1 tab PRN Q4HRS PRN PO PAIN; Start 06/29/19 at 11:30 Oxycodone/ Acetaminophen (Percocet 7.5/ 325) 2 tab 1X ONCE PO ; Start 06/29/19 at 09:45; Stop 06/29/19 at 09:46; Status DC Oxycodone/ Acetaminophen (Percocet 7.5/ 325) 2 tab PRN Q4HRS PRN PO PAIN Last administered on 06/30/19at 07:04; Start 06/29/19 at 11:45 Pantoprazole Sodium (Protonix) 40 mg BIDPCLD PO Last administered on 06/29/19 16:48; Start 06/29/19 at 17:30 Primidone (Mysoline) 250 mg BID PO Last administered on 06/30/19 08:38; Start 06/29/19 at 21:00 Pyridoxine HCl (Vitamin B-6) 100 mg DAILY PO Last administered on 06/29/19 16:48; Start 06/29/19 at 15:00 Throat Lozenges (Cepacol Sore Throat Lozenge) 1 millicent PRN Q2HRS PRN PO SORE THROAT Last administered on 06/29/19at 18:22; Start 06/29/19 at 14:00 Vitamin D (Vitamin D3) 1,000 unit DAILY PO Last administered on 06/30/19at 08:38; Start 06/29/19 at 15:00 Allergies Allergies: Coded Allergies: No Known Drug Allergies (Unverified , 06/29/19) ROS Review Of Systems: CONSTITUTIONAL: No fever or chills EYES: No recent changes SKIN: No rash or itching CARDIOVASCULAR: No chest pain, syncope, palpitations, or edema RESPIRATORY: No SOB or cough GASTROINTESTINAL: No nausea, vomiting or abdominal pain NEUROLOGICAL: No headaches or weakness ENDOCRINE: No cold or heat intolerance GENITOURINARY: No urgency or frequency of urination MUSCULOSKELETAL: No back pain or joint pain LYMPHATICS: No enlarged lymph nodes PSYCHIATRIC: No anxiety or depression Physical Exam Physical Exam: General: Pleasant, no acute distress, well groomed Eyes: conjunctiva anicteric, eyes full range of motion ENT: moist oral mucosa, normal dentition Neck: Trachea midline, no masses Respiratory: unlabored breathing, not using accessory muscles, no crackles or wheezes Cardiovascular: Regular rate and rhythm, no peripheral edema Abdomen: mildly tender RLQ, nondistended, no hepatosplenomegaly, no masses : perez catheter draining clear yellow urine Skin: no rashes or skin lesions on visualized skin Psych: normal mood, affect. Alert and oriented x 3. Vitals VITALS Vital Signs Date Time Temp Pulse Resp B/P (MAP) Pulse Ox O2 Delivery O2 Flow Rate FiO2 06/30/19 08:38 56 125/71 06/30/19 07:04 Room Air 06/30/19 07:00 98.0 16 100 98.0 06/29/19 09:06 10 Assessment/Plan Assessment/Plan Post op urinary retention - removed catheter this AM to begin voiding trial. If no output in 6hrs replace catheter Start flomax this AM Encourage physical activity as tolerated and bowel regimen KEVIN CRONIN MD 06/30/19 1049: UROLOGY CONSULT Assessment/Plan Assessment/Plan Have seen pt and he is now voiding. I offered a TRAVIS but he demurred. He will be seeing Dr Prabhakar soon and will have him do TRAVIS. ROMEL CASTANEDA Jun 30, 2019 08:56 KEVIN CRONIN MD Jun 30, 2019 10:49
[2019-06-30] MEDS ORDERED: MULTIVITAMIN with MINERAL TABLET. PO SCH (09:00)
[2019-06-30] MEDS ORDERED: TAMSULOSIN 0.4 MG CAP.ER.24H. PO SCH (09:00)
--- NOTE | 2019-06-30 10:06 | PDOC ---
SURGICAL PROGRESS NOTE Subjective upset that is not discharged yet, is on her way why perez wasnt out last night incisional pain Vital Signs Vital Signs Date Time Temp Pulse Resp B/P (MAP) Pulse Ox O2 Delivery O2 Flow Rate FiO2 06/30/19 10:04 100 Room Air 10.0 06/30/19 08:38 56 125/71 06/30/19 07:00 98.0 16 98.0 I&O Intake and Output 06/30/19 07:00 Intake Total 3350 ml Output Total 2615 ml Balance 735 ml Intake Oral 1300 ml IV Total 2050 ml Output Urine Total 2610 ml Estimated Blood Loss 5 ml General: Alert, Oriented X3, Cooperative, No acute distress Abdomen: Soft, Other (groin dressing dry) Assessment/Plan s/p [facility] perez out, urology consulted, one small void since perez out possible home later today if urinating well CLIFTON GALEANO APRN Jun 30, 2019 10:06
[2019-06-30] MEDS: PYRIDOXINE 50 MG TABLET. PO SCH (10:51)
[2019-06-30] MEDS: PANTOPRAZOLE 40 MG TABLET.DR. PO SCH (10:51)
[2019-06-30 11:00] VITALS: BP 117/72
--- NOTE | 2019-06-30 11:22 | NUR ---
SS following for discharge planning. SS reviewed pt chart. Pt is from home with spouse and is currently on room air. Discharge order on the chart for home with self care.
--- NOTE | 2019-06-30 11:56 | PDOC3 ---
Discharge Summary Visit Information Date of Admission: Jun 29, 2019 Date of Discharge: Jun 30, 2019 Admitting Diagnosis: Left inguinal hernia Final Diagnosis Left inguinal hernia Brief Hospital Course Allergies Allergies Coded Allergies Type Severity Reaction Last Updated Verified No Known Drug Allergies 06/29/19 No Vital Signs Vital Signs Date Time Temp Pulse Resp B/P (MAP) Pulse Ox O2 Delivery O2 Flow Rate FiO2 06/30/19 11:00 98.0 60 16 117/72 (87) 99 Room Air 98.0 06/30/19 10:54 10.0 Brief Hospital Course Mr. Chua is a 64 old male who underwent left inguinal hernia repair with mesh. Postoperatively had urinary retention. Urology evaluated and able to urninate POD#1. Tolerating diet, pain managed and ready for discharge Discharge Information Condition at Discharge: Stable Follow Up: Weeks (2) Disposition/Orders: D/C to Home Scheduled Amlodipine Besylate (Amlodipine Besylate) 5 Mg Tablet, 5 MG PO DAILY for blood pressure, (Reported) Entered as Reported by: IVONNE LOCKHART on 10/09/17 1323 Last Taken: Unknown Dose on 06/29/19 0510 Last Action: Continued on 06/29/191356 by CHITO RAMAN Aspirin (Aspirin) 81 Mg Tab.chew, 1 TAB PO DAILY for heart healthy, #30 Ref 3 (Reported) Entered as Reported by: SUSHMA RALPH on 11/06/17 1150 Last Action: Continued on 06/29/191356 by CHITO RAMAN Atorvastatin Calcium (Atorvastatin Calcium) 40 Mg Tablet, 1 TAB PO DAILY for cholesterol, #30 Ref 5 (Reported) Entered as Reported by: IVONNE LOCKHART on 10/09/17 1319 Last Action: Continued on 06/29/191356 by CHITO RAMAN Calcium Carbonate (Calcium) 600 Mg Tablet, 600 MG PO DAILY for supplement, (Reported) Entered as Reported by: SUSHMA RALPH on 11/20/17 1155 Last Action: Converted on 06/29/191356 by CHITO RAMAN Cholecalciferol (Vitamin D3) (Vitamin D3) 1,000 Unit Tablet, 1 TAB PO DAILY for supplement, #30 Ref 5 (Reported) Entered as Reported by: SUSHMA RALPH on 11/20/17 1155 Last Action: Continued on 06/29/191356 by CHITO RAMAN Clonazepam (Clonazepam) 1 Mg Tablet, 1 MG PO TID for nerves, (Reported) Entered as Reported by: IVONNE LOCKHART on 10/09/17 1321 Last Taken: Unknown Dose on 06/29/19 0510 Last Action: Converted on 06/29/191356 by CHITO RAMAN Cyanocobalamin (Vitamin B-12) (Vitamin B-12) 1,000 Mcg Tablet, 500 MCG PO DAILY for supplement, (Reported) Entered as Reported by: SUSHMA RALPH on 11/20/17 115 Last Action: Continued on 06/29/191356 by CHITO RAMAN Docusate Sodium (Colace) 100 Mg Capsule, 100 MG PO BID for constipation, #60 Prescribed by: KULWANT JUAREZ on 02/20/19 1111 Last Action: Continued on 06/29/191356 by CHITO RAMAN Ferrous Sulfate (Ferrous Sulfate) 325 Mg Tablet, 65 MG PO DAILY for supplement, (Reported) Entered as Reported by: SUSHMA RALPH on 11/20/17 115 Last Action: Continued on 06/29/191356 by CHITO RAMAN Lisinopril (Lisinopril) 5 Mg Tablet, 2 TAB PO DAILY for bp, #30 Ref 5 (Reported) Entered as Reported by: IVONNE LOCKHART on 10/09/17 1319 Last Action: Continued on 06/29/191356 by CHITO RAMAN Metoprolol Tartrate (Metoprolol Tartrate) 25 Mg Tablet, 1 TAB PO DAILY for heart rhythm, #180 Ref 1 (Reported) Entered as Reported by: IVONNE LOCKHART on 10/09/17 1324 Last Taken: Unknown Dose on 06/29/19 0510 Last Action: Continued on 06/29/191356 by CHITO RAMAN Multivitamin (Men's Multi-Vitamin) 1 Each Tablet, 1 EACH PO DAILY for supplement, (Reported) Entered as Reported by: SUSHMA RALPH on 11/20/17 115 Last Action: Converted on 06/29/191356 by CHITO RAMAN Omeprazole (Omeprazole) 40 Mg Capsule.dr, 1 CAP PO BIDPCLD for stomach, #30 Ref 3 (Reported) Entered as Reported by: IVONNE LOCKHART on 10/09/17 1321 Last Action: Converted on 06/29/19 135 by CHITO RAMAN Primidone (Mysoline) 250 Mg Tablet, 250 MG PO BID for tremors, (Reported) Entered as Reported by: KPKalia BREWER on 02/13/19 1325 Last Taken: Unknown Dose on 06/29/19 0510 Last Action: Continued on 06/29/19 135 by CHITO RAMAN [Vitamn B 1] , 100 DAILY for suppplement, (Reported) Entered as Reported by: SUSHMA RALPH on 11/20/17 1155 Last Action: Converted on 06/29/191356 by CHITO RAMAN Scheduled PRN Oxycodone/Apap 10-325 (Percocet 10-325 Mg Tablet ) 1 Each Tablet, 1 TAB PO PRN Q6HRS PRN for MODERATE PAIN, #40 Prescribed by: KULWANT JUAREZ on 05/25/19 1212 Last Taken: Unknown Dose on 06/29/19 0510 Last Action: Last Taken Edited on 06/29/19 0632 by ANUSHKA RENTERIA Oxycodone/Apap 7.5-325 (Percocet 7.5-325 Mg Tablet ) 1 Each Tablet, 1-2 TAB PO PRN Q6HRS PRN for PAIN, #30 Ref 0 (Reported) Entered as Reported by: DONNIE STARKS on 06/29/19 0939 CLIFTON GALEANO APRN Jun 30, 2019 11:56
--- NOTE | 2019-06-30 11:57 | NUR ---
pt was discharged home with self care, came to pick him up, send home a script for percocet 7.5/325 PO Q4hrs PRN for pain. Urology was to call in a script for Flomax to pt's pharm at [facility] at the [facility]. he was wheeled down at 1145 to the main entrance. Merrill Lincoln RN
== END 2019-06-30 12:00 | disposition home or self-care (01) ==
LOC: SURG 06:10 → 4 NORTH 12:22
PROVIDERS: ADMIT Surgery; ATTEND Surgery
PROC: 0YU60JZ Supplement Left Inguinal Region with Synthetic Substitute, Open Approach (ICD-10-PCS; principal; 2019-06-29 08:00)
DX: K40.90 Unilateral inguinal hernia, without obstruction or gangrene, not specified as recurrent (principal); I10 Essential (primary) hypertension; E78.00 Pure hypercholesterolemia, unspecified; K21.9 Gastro-esophageal reflux disease without esophagitis; G25.0 Essential tremor; R33.9 Retention of urine, unspecified; E78.5 Hyperlipidemia, unspecified; Z98.890 Other specified postprocedural states
CPT/HCPCS: 49505; A7015; C1781; G0378; G0379; J0171; J0696; J1100; J2001; J2250; J2405; J2704; J3010; J3490; J7040; J7120

== ENCOUNTER 2021-07-10 09:29 | Observation (INO) | payer BC, MEDICARE ==
[~2021-07-10] VITALS: Ht 185.4 cm; Wt 92.0 kg
[~2021-07-10 09:29] MED LIST changes: +AMLO-186 PO; -AMLO5TAB10 PO; -BACITRACIN 50,000 UNIT in IV NORMAL SALINE 500ML BAG 500 ML IRR ONE; -BUPIVACAINE-EPI 0.5%-1:200000 MPF 30 ML VIAL. INJ ONE; -CALC600T4 PO; +CALC600T60 PO; -LISI-338 PO; +LISI-517 PO; +MELA3TAB4 PO; -MELA3TAB56 PO; -OMEP40CA5 PO; +OMEP40CA7 PO
[2021-07-10] MEDS ORDERED: KETOROLAC 30 MG/ML VIAL. IM ONE (11:45)
[2021-07-10] MEDS ORDERED: methylPREDNISolone ACETATE 80 MG/ML VIAL. IM ONE (11:45)
[2021-07-10] MEDS ORDERED: HYDROcodone/APAP 10/325 1 TAB TABLET PO ONE (11:45)
--- NOTE | 2021-07-10 11:50 | PHYS DOC ---
Past Medical History Additional Past Medical Histor: back pain Past Surgical History: Coronary Bypass Surgery, Other Additional Past Surgical Histo: Hernia Smoking Status: Former Smoker General Adult EDM: Chief Complaint: BACK PAIN - NO INJURY HPI: HPI: Patient is a 66 year old male who presents emergency department complaining of low back pain after moving furniture 2 days ago and feeling his back "pop ". Patient reports he has needed a walker to ambulate since, denies numbness or tingling to his buttocks or perineal area, denies loss of bowel or loss of bladder control, denies numbness or tingling down extremities. Patient reports having a lumbar fusion 2 years ago, states he has chronic back pain controlled with hydrocodone. States he is out of hydrocodone at this time. Describes his pain as a throbbing sharp pain that does not radiate, center of the low back, rates 9 out of 10 pain. Denies other pain complaints or physical concerns. Review of Systems: Review of Systems: 14 body systems of review of systems have been reviewed. See HPI for pertinent positives and negative responses, otherwise all other systems are negative, nonpertinent or noncontributory. Constitutional: Negative except as outlined in HPI above. Skin: Negative except as outlined in HPI above. Eyes: Negative except as outlined in HPI above. HENT: Negative except as outlined in HPI above. Respiratory: Negative except as outlined in HPI above. Cardiovascular: Negative except as outlined in HPI above. GI: Negative except as outlined in HPI above. : Negative except as outlined in HPI above. Musculoskeletal: Negative except as outlined in HPI above. Integument: Negative except as outlined in HPI above. Neurologic: Negative except as outlined in HPI above. Endocrine: Negative except as outlined in HPI above. Lymphatic: Negative except as outlined in HPI above. Psychiatric: Negative except as outlined in HPI above. Heart Score: C/O Chest Pain: No Risk Factors: Risk Factors: DM, Current or recent (<one month) smoker, HTN, HLP, family history of CAD, obesity. Risk Scores: Score 0 - 3: 2.5% MACE over next 6 weeks - Discharge Home Score 4 - 6: 20.3% MACE over next 6 weeks - Admit for Clinical Observation Score 7 - 10: 72.7% MACE over next 6 weeks - Early Invasive Strategies Allergies: Allergies: Allergies Coded Allergies Type Severity Reaction Last Updated Verified No Known Drug Allergies 06/29/19 No Physical Exam: PE: Constitutional: Well developed, well nourished, no acute distress, non-toxic appearance. 66-year-old male in no apparent distress. HENT: Normocephalic, atraumatic. Eyes: Conjunctiva normal, no discharge. Neck: Normal range of motion, no stridor. Cardiovascular: No cyanosis appreciated, distal cap refill less than 2 seconds. Lungs & Thorax: Patient is in no respiratory distress, no audible adventitious lung sounds appreciated. Abdomen: Nontender, no abnormalities noted. Skin: Warm, dry, no erythema, no rash. Back: No left or right-sided CVA TTP, pain to palpation midline lumbar area, no crepitus, no deformities, no skin discoloration appreciated. Extremities: No tenderness, no cyanosis, no clubbing, ROM intact, no edema. Distal cap refill less than 2 seconds, 2+ dorsalis pedis/posterior tibial pulses. Neurologic: Alert and oriented X 3, normal motor function, normal sensory function, no focal deficits noted. Psychologic: Affect normal, judgement normal, mood normal. Current Patient Data: Vital Signs: Vital Signs Date Time Temp Pulse Resp B/P (MAP) Pulse Ox O2 Delivery O2 Flow Rate FiO2 07/10/21 11:31 98.0 75 16 117/77 (90) 98 Room Air 98.0 EKG: EKG: [] Radiology/Procedures: Radiology/Procedures: PATIENT: ELIJAH OZUNA ACCOUNT: [id number] : 1955 LOCATION: ER AGE: 66 SEX: M EXAM STATUS: REG ER ORD. PHYSICIAN: TEJAS OLIVA APRN REASON: Low back pain PROCEDURE: CT LUMBAR SPINE WO CONTRAST PQRS Compliance Statement: One or more of the following individualized dose reduction techniques were utilized for this examination: 1. Automated exposure control 2. Adjustment of the mA and/or kV according to patient size 3. Use of iterative reconstruction technique CT LUMBAR SPINE WO 07/10/2021 11:50 AM Indication: Low back pain COMPARISON: None available. TECHNIQUE: Multiple axial CT images of the lumbar spine were obtained without intravenous contrast. Coronal and sagittal reformats are provided. FINDINGS: Posterior fusion is identified at L4-L5 with bilateral pedicle screws and dual rods. There is no lucency surrounding the hardware. There is persistent grade 1 anterolisthesis of L4 on L5 measuring approximately 11 mm. There is similar degree of a superior endplate compression deformity at L5 with 25 percent height loss. There is chronic fragmentation of the anterior superior endplate of L1, stable. There is a new superior endplate compression fracture at L2 with 50 percent height loss and retropulsion of the superior endplate of L2 resulting in less than 30 percent compromise of the spinal canal. There is moderate to severe spinal canal stenosis at L4-L5 without significant interval change since prior examination. Visualized portions of the sacrum are intact. Urinary bladder is within normal limits. Right common iliac artery aneurysm measures 3.6 cm, stable. Limited evaluation of the infrarenal abdominal aorta with infrarenal abdominal aortic aneurysm with partially profiled. IMPRESSION: There is a new superior endplate compression fracture at L2 with 50 percent height loss and superior endplate retropulsion resulting in mild spinal canal stenosis with less than 30 percent compromise. No significant paraspinal or compressive epidural hematoma. Posterior fusion at L4-L5 without evidence for hardware failure. Chronic height loss identified at L5. Electronically signed by: Shanna Melendez MD (07/10/2021 12:40 PM) [id number] DICTATED and SIGNED BY: SHANNA MELENDEZ MD DATE: 07/10/21 [id number] 0 Course & Med Decision Making: Course & Med Decision Making Pertinent Labs and Imaging studies reviewed. (See chart for details) 66-year-old male, vital signs reviewed, presents emergency department concerning low back pain for the past 2 days after moving furniture. Physical examination most likely chronic lumbar pain with acute exacerbation, with patient's explanation of events will order CT L-spine, will give pain medications in ED with steroid intramuscular injection pending CT results. CT L-spine concerning for new L2 compression fracture, upon reevaluation of the patient, patient reports his pain is now a 10 out of 10, continues lower extremity weakness, discussed with patient recommended admission for intractable low back pain, L2 fracture, lower extremity weakness, patient is amenable to this plan. Paged Dr. Prabhakar for admission. Discussed patient case and ED work-up with patient's primary care physician Dr. Tamiko Prabhakar who agrees patient's case warrants admission to the MedSurg unit, requested neurosurgical consult, patient awaiting MedSurg bed at this time. Discussed patient's case and ED work-up with neurosurgeon nurse practitioner specialist Fariba FLOYD, states she will come see patient in ED. Garrett Disclaimer: Dragvasyl Disclaimer: This electronic medical record was generated, in whole or in part, using a voice recognition dictation system. Departure Departure Impression: Primary Impression: Compression fracture of L2 Qualified Codes: S32.020A - Wedge compression fracture of second lumbar vertebra, initial encounter for closed fracture Additional Impressions: Intractable low back pain Lower extremity weakness Qualified Codes: R29.898 - Other symptoms and signs involving the musculoskeletal system Disposition: ADMITTED INPATIENT Admitting Physician: Tamiko Prabhakar Condition: STABLE Referrals: TAMIKO PRABHAKAR MD (PCP) TEJAS OLIVA APRN Jul 10, 2021 11:50
--- NOTE | 2021-07-10 12:42 | RAD ---
PQRS Compliance Statement: One or more of the following individualized dose reduction techniques were utilized for this examinat ion: 1. Automated exposure control 2. Adjustment of the mA and/or kV according to patient size 3. Use of iterative reconstruction technique CT LUMBAR SPINE WO 07/10/2021 11:50 AM Indication: Low back pain COMPARISON: None available. TECHNIQUE: Multiple axial CT images of the lumbar spine were obtained without intravenous contrast. C oronal and sagittal reformats are provided. FINDINGS: Posterior fusion is identified at L4-L5 with bilateral pedicle screws and dual rods. There is no luce ncy surrounding the hardware. There is persistent grade 1 anterolisthesis of L4 on L5 measuring appro ximately 11 mm. There is similar degree of a superior endplate compression deformity at L5 with 25 pe rcent height loss. There is chronic fragmentation of the anterior superior endplate of L1, stable. Th ere is a new superior endplate compression fracture at L2 with 50 percent height loss and retropulsio n of the superior endplate of L2 resulting in less than 30 percent compromise of the spinal canal. Th ere is moderate to severe spinal canal stenosis at L4-L5 without significant interval change since pr ior examination. Visualized portions of the sacrum are intact. Urinary bladder is within normal limit s. Right common iliac artery aneurysm measures 3.6 cm, stable. Limited evaluation of the infrarenal a bdominal aorta with infrarenal abdominal aortic aneurysm with partially profiled. IMPRESSION: There is a new superior endplate compression fracture at L2 with 50 percent height loss and superior endplate retropulsion resulting in mild spinal canal stenosis with less than 30 percent compromise. N o significant paraspinal or compressive epidural hematoma. Posterior fusion at L4-L5 without evidence for hardware failure. Chronic height loss identified at L5 . Electronically signed by: Maeve Silveira MD (07/10/2021 12:40 PM) [id number]
[2021-07-10] MEDS ORDERED: HYDROmorphone 2 MG/ML VIAL IVP ONE (13:15)
[2021-07-10 14:13] LABS: BASO # 0.1 x10^3/uL (0.0-0.2); BASO % 1 % (0-3); EOS # 0.2 x10^3/uL (0.0-0.7); EOS % 3 % (0-3); HEMOGLOBIN 13.4 g/dL (13.0-17.5); LYMPH # 1.4 x10^3/uL (1.0-4.8); LYMPH % 20 % (24-48); MEAN CORPUSCULAR HEMOGLOBIN 31 pg (25-35); MEAN CORPUSCULAR HGB CONC 34 g/dL (31-37); MEAN CORPUSCULAR VOLUME 91 fL (79-100); MONO # 0.9 x10^3/uL (0.0-1.1); MONO % 13 % (0-9); NEUT # 4.4 x10^3/uL (1.8-7.7); NEUT % 64 % (31-73); PLATELET COUNT 181 x10^3/uL (140-400); RED BLOOD COUNT 4.39 x10^6/uL (4.30-5.70); RED CELL DISTRIBUTION WIDTH 15.2 % (11.5-14.5)
[2021-07-10 14:21] LABS: CALCIUM 9.5 mg/dL (8.5-10.1); CREATININE 1.4 mg/dL (0.7-1.3); GFR 50.4; POTASSIUM 4.4 mmol/L (3.5-5.1)
[2021-07-10 14:28] LABS: ALBUMIN 3.6 g/dL (3.4-5.0); ALBUMIN/GLOBULIN RATIO 0.8 (1.0-1.7); TOTAL BILIRUBIN 0.3 mg/dL (0.2-1.0)
[2021-07-10] MEDS: MORPHINE SULFATE 2 MG/ML INJ. IVP PRN ×2 (17:28→20:38)
[2021-07-10] MEDS ORDERED: HYDR-2769 PO (18:29)
[2021-07-10 19:00] VITALS: BP 117/77
[2021-07-10 22:54] VITALS: BP 144/86
[2021-07-11] MEDS: MORPHINE SULFATE 2 MG/ML INJ. IVP PRN ×3 (01:31→05:26)
[2021-07-11 03:35] VITALS: BP 116/76
[2021-07-11 07:00] VITALS: BP 104/62
[2021-07-11] MEDS: METOPROLOL TART IMMED RELEASE 25 MG TABLET. PO SCH (09:00)
[2021-07-11] MEDS ORDERED: MORPHINE SULFATE 10 MG/ML VIAL. IV ONE (09:00)
[2021-07-11] MEDS: LISINOPRIL 10 MG TABLET PO SCH (09:00)
[2021-07-11] MEDS: PRIMIDONE 250 MG TABLET PO SCH ×2 (09:00→19:35)
[2021-07-11] MEDS: CYANOCOBALAMIN (VITAMIN B-12) 1,000 MCG TABLET. PO SCH (09:20)
[2021-07-11] MEDS: MULTIVITAMIN with MINERAL TABLET. PO SCH (09:20)
[2021-07-11] MEDS: CHOLECALCIFEROL (VITAMIN D3) 1,000 UNIT TABLET PO SCH (09:20)
[2021-07-11] MEDS: DOCUSATE SODIUM 100 MG CAPSULE. PO SCH ×2 (09:20→19:34)
[2021-07-11] MEDS: PANTOPRAZOLE 40 MG TABLET.DR. PO SCH (09:21)
[2021-07-11] MEDS: clonazePAM 0.5 MG TABLET PO SCH ×3 (09:21→19:35)
[2021-07-11] MEDS: FERROUS SULFATE 325 MG TABLET. PO SCH (09:21)
[2021-07-11] MEDS: HYDROcodone/APAP 10/325 1 TAB TABLET PO PRN ×3 (09:21→22:17)
[2021-07-11] MEDS: CALCIUM CARBONATE 500 MG TABLET PO SCH (09:21)
--- NOTE | 2021-07-11 10:45 | NUR ---
SW following. Discussed with RN, pt from home with , room air, cardiac diet. MRI ordered. Dr. Zacarias and Dr. Doyle following. Per RN, pt stated he would leave if nothing has happened by noon today. RN advised no SW needs at this time. SW will continue to follow.
[2021-07-11 11:00] VITALS: BP 103/65
[2021-07-11] MEDS: MORPHINE SULFATE 4 MG/ML INJ. IV PRN ×4 (11:56→19:35)
--- NOTE | 2021-07-11 12:29 | PDOC ---
Provider Note Date of Service: DATE: 07/11/21 TIME: 12:23 Provider Note patient seen and examined consulted for back pain, L2 fracture low back pain after moving furniture 2 days ago and feeling his back "pop ". Patient reports he has needed a walker to ambulate since, denies numbness or tingling to his buttocks or perineal area, denies loss of bowel or loss of bladder control, denies numbness or tingling down extremities. Patient reports having a lumbar fusion of L4-5 in 2019, states he has chronic back pain controlled with hydrocodone. Describes his pain as a throbbing sharp pain that does not radiate, center of the low back, rates 9/10 pain. Denies other pain complaints or physical concerns. tenderness of lumbar spine with palpation, strength and sensation intact in LE CT with superior endplate compression fracture at L2 and post op changes at L4- 5 lumbar MRI pending brace when out of bed for comfort PT Dr. Doyle consulted will follow D/W RN Justifications for Admission Other Justification KULWANT JUAREZ MD Jul 11, 2021 12:29
--- NOTE | 2021-07-11 13:59 | CONS ---
DATE OF CONSULTATION: 07/11/2021 ATTENDING PHYSICIAN: Kuldip Prabhakar MD REASON FOR CONSULTATION: The patient was seen at the request of Dr. Prabhakar for rehab evaluation. HISTORY: This is a 66-year-old male with chronic lower back pain, status post lumbar spinal fusion done by Dr. Hicks in the past, has been taking hydrocodone 10/325 mg couple of times a day for back pain control. He moved a table with TV 2 days ago. Since then, he is having increasing back pain and he felt a pop in his back while moving the furniture. He denies any radiation of the pain to the extremities, but admits some tingling and numbness, which has been present before in his feet and he denies any trouble with his bowel or bladder control. The patient is status post coronary artery bypass graft done in the past. The patient admits using alcohol. He also admits injury to his shoulders in the past. PHYSICAL EXAMINATION: GENERAL: Today revealed a middle-aged male. He is alert, oriented to time, place, person and circumstance. Follows commands appropriately. NEUROLOGIC: Moves all 4 extremities voluntarily where he had 4+/5 grade muscle strength. Deep tendon reflexes are decreased overall with absent knee and ankle jerks. The patient had minimal tenderness to palpation over lumbar spine and adjoining paraspinal muscles. Straight leg raising test is negative bilaterally. He had mild crepitus on range of motion of his shoulder joint with separation of right AC joint. He is independent with the bed mobility and he admits increased pain trying to come to a sitting position. I have not tested his transfers or ambulation skills at this time. He already had lumbar corset, which he had been using it on as needed basis. His skin is intact at this time. ASSESSMENT: Middle-aged male with acute L2 vertebral body compression fracture as per CT scan done with associated spondylolisthesis of L4 on L5, old L5 vertebral body compression fracture, status post previous lumbar spine fusion. Clinical evidence of peripheral neuropathy, degenerative joint disease of both shoulders with separation of right acromioclavicular joint. RECOMMENDATIONS: Agree with the plans for MRI scan and to proceed with asking Interventional Radiology to proceed with kyphoplasty of L2. Hopefully, home with outpatient followup when medically stable. He is eager to go home today. To ask Physical Therapy to review with him proper body mechanics. Dr. Prabhakar, I appreciate asking me to participate in the care of this interesting patient. I will be glad to see him for followup with you on as needed basis. KIET/JUDY DR: KIET/aleks TID: [id number]
--- NOTE | 2021-07-11 13:59 | HP ---
ADMIT DATE: 07/11/2021 CHIEF COMPLAINT AND HISTORY OF PRESENT ILLNESS: This 66-year-old male is well known to me from follow up in the office. The patient presented to the Emergency Room after 4 days of severe lower back pain. It is worse with sitting or standing. It started with him helping rearranged furniture with picking up an object in the living room. He felt a pop and had severe pain since. He denies radicular symptoms with it. He was found in the Emergency Room to have an acute lumbar compression fracture and admitted for pain control as well as neurosurgical evaluation for the same. PAST MEDICAL HISTORY: Remarkable for coronary artery disease. He is status post CABG. He has chronic back pain. He has had prior hernia repairs. MEDICATIONS: Brought with the patient, listed on the computer have been addressed as are allergies. SOCIAL HISTORY: He is a reformed smoker, reformed drinker. Does not abuse drugs. , lives at home with his . FAMILY HISTORY: Strongly positive for coronary artery disease. REVIEW OF SYSTEMS: As mentioned above. PHYSICAL EXAMINATION: GENERAL: He is a well-developed, well-nourished white male who is very uncomfortable lying in bed. VITAL SIGNS: Stable. He is afebrile. HEAD, EYES, EARS, NOSE AND THROAT: Unremarkable. NECK: Supple, without any thyromegaly. CHEST: Clear to auscultation and percussion. HEART: Regular rate and rhythm without S3, S4 or murmur. ABDOMEN: Soft, nontender, without hepatosplenomegaly or mass. EXTREMITIES: Without cyanosis, clubbing or edema. NEUROLOGIC: He is intact. IMPRESSION: 1. Acute lumbar spine compression fracture with inability to do self-care at L2. 2. Other problems listed above. PLAN: Neurosurgical consultation, pain control. Hopefully, will get vertebroplasty with relief of his pain here fairly soon. NIDHI DR: Katie TID: [id number]
[2021-07-11] MEDS: tiZANidine 4 MG TABLET. PO PRN ×2 (14:00→22:17)
--- NOTE | 2021-07-11 14:00 | RAD ---
EXAM: Lumbar spine MRI without contrast. HISTORY: L2 compression fracture. TECHNIQUE: Multiplanar, multisequence magnetic resonance imaging of the lumbar spine was performed wi thout contrast. COMPARISON: CT dated 07/10/2021. FINDINGS: There is a moderate L2 compression fracture with approximately one half loss of central phong tebral body height and 3 mm retropulsion of the cortex. There is linear T1 hypointensity along the fr acture line with insignificant marrow edema at this level, favoring a late subacute etiology. There i s a mild chronic superior endplate compression deformity at L5 with approximately one third decreased in central vertebral body height. There is a mild chronic compression deformity of L1 with approxima tely one quarter decreased vertebral body height. There is instrumented posterior spinal fusion at L4-L5. There is 10 mm grade 1 anterolisthesis at thi s level. There is 3 mm retrolisthesis of L3 on L4 and 3 mm grade 1 anterolisthesis of L5 on S1. There is mild lumbar hyperlordosis and scoliosis. The conus terminates at T12-L1. There are small simple a ppearing renal cysts. Follow-up is not routinely performed for simple cysts. At L1-L2, there is retropulsion of the L2 cortex. There is mild bilateral facet arthropathy. There is mild neural foraminal stenosis. There is mild central canal stenosis. At L2-L3, there is mild bilateral facet arthropathy. There is no stenosis. At L3-L4, there is a left foraminal to extraforaminal disc protrusion and annular tear superimposed o n a disc bulge and endplate remodeling. There is mild left foraminal stenosis with abutment or near a butment of the exiting left L3 nerve root. At L4-L5, there is a shallow broad-based left paracentral superior disc extrusion superimposed on a d isc bulge and endplate remodeling. There is grade 1 anterolisthesis. There is instrumented posterior spinal fusion. There is mild right foraminal stenosis with abutment the exiting right L4 nerve root. There is moderate central canal stenosis. At L5-S1, there is moderate right and mild left facet arthropathy. There is no stenosis. IMPRESSION: 1. Moderate L2 compression fracture with minimal retropulsion of the cortex contributing to mild bila teral foraminal and central canal stenosis. There is linear signal abnormality along the fracture maykel e without significant surrounding marrow edema, favoring a late subacute etiology. 2. Instrumented posterior spinal fusion at L4-L5. 3. Multilevel degenerative change involving the lumbar spine, described in detail above. This is asso ciated with mild left foraminal stenosis at L3-L4 and mild right foraminal and moderate central canal stenosis at L4-L5. 4. Grade 1 anterolisthesis of L4 on L5 and slight retrolisthesis of L3 on L4 and anterolisthesis of L 5 on S1. This is superimposed on mild scoliosis and hyperlordosis. Electronically signed by: Kavitha Brambila MD (07/11/2021 1:29 PM) [facility]
[2021-07-11 15:09] VITALS: BP 94/56
[2021-07-11 19:00] VITALS: BP 95/59
[2021-07-11] MEDS ORDERED: ATORVASTATIN CALCIUM 40 MG TABLET. PO SCH (21:00)
[2021-07-11 23:00] VITALS: BP 95/56
[2021-07-12] MEDS: PANTOPRAZOLE 40 MG TABLET.DR. PO SCH (04:30)
[2021-07-12] MEDS: HYDROcodone/APAP 10/325 1 TAB TABLET PO PRN ×2 (04:31→11:17)
[2021-07-12 04:35] VITALS: BP 100/59
[2021-07-12 07:00] VITALS: BP 171/90
[2021-07-12] MEDS: clonazePAM 0.5 MG TABLET PO SCH ×2 (08:51→13:48)
[2021-07-12] MEDS: PRIMIDONE 250 MG TABLET PO SCH (08:51)
[2021-07-12] MEDS: MULTIVITAMIN with MINERAL TABLET. PO SCH (08:51)
[2021-07-12] MEDS: CYANOCOBALAMIN (VITAMIN B-12) 1,000 MCG TABLET. PO SCH (08:51)
[2021-07-12] MEDS: LISINOPRIL 10 MG TABLET PO SCH (08:52)
[2021-07-12] MEDS: CALCIUM CARBONATE 500 MG TABLET PO SCH (08:52)
[2021-07-12] MEDS: CHOLECALCIFEROL (VITAMIN D3) 1,000 UNIT TABLET PO SCH (08:52)
[2021-07-12] MEDS: tiZANidine 4 MG TABLET. PO PRN (08:53)
[2021-07-12] MEDS: DOCUSATE SODIUM 100 MG CAPSULE. PO SCH (08:53)
[2021-07-12] MEDS: METOPROLOL TART IMMED RELEASE 25 MG TABLET. PO SCH (08:53)
[2021-07-12] MEDS: FERROUS SULFATE 325 MG TABLET. PO SCH (08:53)
--- NOTE | 2021-07-12 09:22 | PDOC ---
PROGRESS NOTES Date of Service DATE: 07/12/21 TIME: 09:19 Subjective Subjective No new problems. Objective Objective Vital Signs Date Time Temp Pulse Resp B/P (MAP) Pulse Ox O2 Delivery O2 Flow Rate FiO2 07/12/21 08:53 65 171/90 07/12/21 07:00 97.4 18 96 97.4 07/12/21 05:01 Room Air Intake and Output 07/12/21 06:59 Intake Total 2260 ml Balance 2260 ml Intake Oral 2260 ml # Voids 4 Physical Exam Physical Exam He is alert,supine in bed and does not seem to be in any pain at present. MRI scan confirmed acute L2 vertebral body compression fracture but as he is getting up and walking without any significant difficulty,no plans for kyphoplasty at present. Assessment Assessment Problems Medical Problems: (1) Compression fracture of L2 Status: Acute (2) Intractable low back pain Status: Acute (3) Lower extremity weakness Status: Acute Plan Plan of Care Agree with plans for home without patient follow up. Comment Review of Relevant I have reviewed the following items edson (where applicable) has been applied. Labs Laboratory Tests Test 07/10/21 14:10 07/10/21 15:30 White Blood Count 7.0 x10^3/uL (4.0-11.0) Red Blood Count 4.39 x10^6/uL (4.30-5.70) Hemoglobin 13.4 g/dL (13.0-17.5) Hematocrit 40.0 % (39.0-53.0) Mean Corpuscular Volume 91 fL (79-100) Mean Corpuscular Hemoglobin 31 pg (25-35) Mean Corpuscular Hemoglobin Concent 34 g/dL (31-37) Red Cell Distribution Width 15.2 % (11.5-14.5) Platelet Count 181 x10^3/uL (140-400) Neutrophils (%) (Auto) 64 % (31-73) Lymphocytes (%) (Auto) 20 % (24-48) Monocytes (%) (Auto) 13 % (0-9) Eosinophils (%) (Auto) 3 % (0-3) Basophils (%) (Auto) 1 % (0-3) Neutrophils # (Auto) 4.4 x10^3/uL (1.8-7.7) Lymphocytes # (Auto) 1.4 x10^3/uL (1.0-4.8) Monocytes # (Auto) 0.9 x10^3/uL (0.0-1.1) Eosinophils # (Auto) 0.2 x10^3/uL (0.0-0.7) Basophils # (Auto) 0.1 x10^3/uL (0.0-0.2) Sodium Level 124 mmol/L (136-145) Potassium Level 4.4 mmol/L (3.5-5.1) Chloride Level 89 mmol/L (98-107) Carbon Dioxide Level 27 mmol/L (21-32) Anion Gap 8 (6-14) Blood Urea Nitrogen 11 mg/dL (8-26) Creatinine 1.4 mg/dL (0.7-1.3) Estimated GFR (Cockcroft-Gault) 50.4 BUN/Creatinine Ratio 8 (6-20) Glucose Level 91 mg/dL (70-99) Calcium Level 9.5 mg/dL (8.5-10.1) Total Bilirubin 0.3 mg/dL (0.2-1.0) Aspartate Amino Transf (AST/SGOT) 16 U/L (15-37) Alanine Aminotransferase (ALT/SGPT) 15 U/L (16-63) Alkaline Phosphatase 78 U/L (46-116) Total Protein 8.0 g/dL (6.4-8.2) Albumin 3.6 g/dL (3.4-5.0) Albumin/Globulin Ratio 0.8 (1.0-1.7) SARS-CoV-2 RNA (ELMA) Negative (Negative) Medications Current Medications Methylprednisolone Acetate (DEPO-Medrol 80MG VIAL) 80 mg 1X ONCE IM Last administered on 07/10/21at 11:54; Start 07/10/21 at 11:45; Stop 07/10/21 at 11:46; Status DC Ketorolac Tromethamine (Toradol 30mg Vial) 30 mg 1X ONCE IM Last administered on 07/10/21at 11:54; Start 07/10/21 at 11:45; Stop 07/10/21 at 11:46; Status DC Acetaminophen/ Hydrocodone Bitart (Lortab 10/325) 1 tab 1X ONCE PO Last administered on 07/10/21at 11:54; Start 07/10/21 at 11:45; Stop 07/10/21 at 11:46; Status DC Hydromorphone HCl (Dilaudid) 1 mg 1X ONCE IVP Last administered on 07/10/21at 14:04; Start 07/10/21 at 13:15; Stop 07/10/21 at 13:16; Status DC Morphine Sulfate (Morphine Sulfate) 2 mg PRN Q2HR PRN IVP PAIN Last administered on 07/11/21at 05:26; Start 07/10/21 at 13:30; Stop 07/11/21 at 08:48; Status DC Amlodipine Besylate (Norvasc) 5 mg DAILY PO Last administered on 07/12/21 08:53; Start 07/11/21 at 09:00 Atorvastatin Calcium (Lipitor) 40 mg QHS PO Last administered on 07/11/21at 19:34; Start 07/11/21 at 21:00 Vitamin D (Vitamin D3) 1,000 unit DAILY PO Last administered on 07/12/21 08:52; Start 07/11/21 at 09:00 Cyanocobalamin (Vitamin B-12) 500 mcg DAILY PO Last administered on 07/12/21at 08:51; Start 07/11/21 at 09:00 Docusate Sodium (Colace) 100 mg BID PO Last administered on 07/12/21 08:53; Start 07/11/21 at 09:00 Ferrous Sulfate (Feosol) 325 mg DAILY PO Last administered on 07/12/21at 08:53; Start 07/11/21 at 09:00 Acetaminophen/ Hydrocodone Bitart (Lortab 10/325) 1 tab PRN Q6HRS PRN PO PAIN Last administered on 07/12/21at 04:31; Start 07/11/21 at 08:30 Lisinopril (Prinivil) 10 mg DAILY PO Last administered on 07/12/21at 08:52; Start 07/11/21 at 09:00 Metoprolol Tartrate (Lopressor) 25 mg DAILY PO Last administered on 07/12/21at 08:53; Start 07/11/21 at 09:00 Primidone (Mysoline) 250 mg BID PO Last administered on 07/12/21at 08:51; Start 07/11/21 at 09:00 Calcium Carbonate/ Glycine (Oscal) 500 mg DAILY PO Last administered on 07/12/21 08:52; Start 07/11/21 at 09:00 Clonazepam (KlonoPIN) 1 mg TID PO Last administered on 07/12/21 08:51; Start 07/11/21 at 09:00 Multivitamins (Thera M Plus) 1 tab DAILY PO Last administered on 07/12/21at 08:51; Start 07/11/21 at 09:00 Pantoprazole Sodium (Protonix) 40 mg DAILYAC PO Last administered on 07/12/21at 04:30; Start 07/11/21 at 09:00 Morphine Sulfate (Morphine Sulfate) 4 mg PRN Q2HR PRN IV PAIN Last administered on 07/11/21 19:35; Start 07/11/21 at 08:45 Morphine Sulfate (Morphine Sulfate) 5 mg 1X ONCE IV Last administered on 07/11/21at 09:19; Start 07/11/21 at 09:00; Stop 07/11/21 at 09:01; Status DC Tizanidine HCl (Zanaflex) 4 mg PRN Q8HRS PRN PO MUSCLE SPASMS Last administered on 07/12/21at 08:53; Start 07/11/21 at 09:30 Active Scripts Active Colace (Docusate Sodium) 100 Mg Capsule 100 Mg PO BID Reported Hydrocodone-Apap 10-325 (Hydrocodone Bit/Acetaminophen) 1 Tab Tablet 1 Tab PO PRN Q6HRS PRN Mysoline (Primidone) 250 Mg Tablet 250 Mg PO BID Men's Multi-Vitamin (Multivitamin) 1 Each Tablet 1 Each PO DAILY Vitamin B-12 (Cyanocobalamin (Vitamin B-12)) 1,000 Mcg Tablet 500 Mcg PO DAILY Vitamin D3 (Cholecalciferol (Vitamin D3)) 1,000 Unit Tablet 1 Tab PO DAILY [Vitamn B 1] 100 DAILY Calcium (Calcium Carbonate) 600 Mg Tablet 600 Mg PO DAILY Ferrous Sulfate 325 Mg Tablet 65 Mg PO DAILY Aspirin 81 Mg Tab.chew 1 Tab PO DAILY Metoprolol Tartrate 25 Mg Tablet 1 Tab PO DAILY Amlodipine Besylate 5 Mg Tablet 5 Mg PO DAILY Clonazepam 1 Mg Tablet 1 Mg PO TID Omeprazole 40 Mg Capsule.dr 1 Cap PO BIDPCLD Lisinopril 5 Mg Tablet 2 Tab PO DAILY Atorvastatin Calcium 40 Mg Tablet 1 Tab PO DAILY Vitals/I & O Vital Sign - Last 24 Hours 9/21/21 9/21/21 9/21/21 9/21/21 11:00 15:09 19:00 19:35 Temp 98.3 97.9 97.5 98.3 97.9 97.5 Pulse 87 88 66 Resp 18 20 18 18 B/P (MAP) 103/65 (78) 94/56 (69) 95/59 (71) Pulse Ox 94 96 95 96 O2 Delivery Room Air Room Air Room Air Room Air 07/11/21 07/11/21 07/11/21 07/11/21 20:00 20:05 22:17 22:47 Resp 18 18 18 Pulse Ox 96 96 96 O2 Delivery Room Air Room Air Room Air Room Air 07/11/21 07/12/21 07/12/21 07/12/21 23:00 04:31 04:35 05:01 Temp 97.7 97.0 97.7 97.0 Pulse 63 70 Resp 17 18 18 18 B/P (MAP) 95/56 (69) 100/59 (73) Pulse Ox 96 96 97 97 O2 Delivery Room Air Room Air Room Air Room Air 07/12/21 07/12/21 07/12/21 07/12/21 07:00 08:52 08:53 08:53 Temp 97.4 97.4 Pulse 65 65 65 65 Resp 18 B/P (MAP) 171/90 (117) 171/90 171/90 171/90 Pulse Ox 96 Intake and Output 07/11/21 07/11/21 07/12/21 14:59 22:59 06:59 Intake Total 320 ml 900 ml 1040 ml Balance 320 ml 900 ml 1040 ml Justifications for Admission Other Justification COOKIE HIDALGO MD Jul 12, 2021 09:22
--- NOTE | 2021-07-12 09:51 | PDOC ---
Provider Note Date of Service: DATE: 07/12/21 TIME: 09:49 Provider Note Reviewed MRI, moderate degenerative changes with compression fracture at L2, post op changes at L4-5 he will need to follow up with me in office in 2 weeks with lumbar spine films spoke with per phone, answered questions about vertebroplasty, they would like to hold off will see in 2 weeks, call with questions Justifications for Admission Other Justification KULWANT JUAREZ MD Jul 12, 2021 09:51
[2021-07-12 11:00] VITALS: BP 155/73
--- NOTE | 2021-07-12 11:23 | PN ---
DATE: 07/12/2021 DAILY PROGRESS NOTE LOCATION: He is in room #567. SUBJECTIVE: This 66-year-old male remains hospitalized with acute lower back pain and limited functionality due to the pain. He does have a subacute L2 compression fracture, although nursing tells me consultants feel pain pattern is not exactly consistent with this. Story certainly is in the onset of pain. If he is not going to be treated with kypho or vertebroplasty, will need pain medicine for a period of time. Back brace has been ordered by Dr. Doyle. OBJECTIVE: VITAL SIGNS: Stable. He is afebrile. GENERAL: Awake, alert. CHEST: Clear. HEART: Regular. ABDOMEN: Benign. BACK: Pain with trying to sit up in bed or moving around the bed is very significant. IMPRESSION: 1. L2 compression fracture with severe pain and decreased functionality. 2. Coronary artery disease. PLAN: Await final plans per neurosurgery and interventional radiology. If not, will be home with pain meds and a back brace. TERESA/TITA DR: Katie TID: [id number]
[2021-07-12] MEDS ORDERED: TIZA4TAB2 PO (12:55)
--- NOTE | 2021-07-12 13:33 | NUR ---
SW following. Discussed with RN, discharge order for home with self care. RN advised no SW needs.
--- NOTE | 2021-07-12 15:05 | NUR ---
patient discharged home with . meds and follow up reviewed. IV removed intact. pt stable upon dc.
== END 2021-07-12 15:05 | disposition home or self-care (01) ==
LOC: ER 09:29 → 5 SOUTH 13:10 → INTOOBSV 13:10 → 5 SOUTH 16:15 → ER 16:15 → 5 SOUTH 16:44
PROVIDERS: ADMIT Family Medicine; ATTEND Family Medicine
DX: M48.56XA Collapsed vertebra, not elsewhere classified, lumbar region, initial encounter for fracture (principal); Z20.822 Contact with and (suspected) exposure to COVID-19; M54.5 Low back pain; G89.29 Other chronic pain; R29.898 Other symptoms and signs involving the musculoskeletal system; R53.1 Weakness; I25.10 Atherosclerotic heart disease of native coronary artery without angina pectoris; Z95.1 Presence of aortocoronary bypass graft; Z87.891 Personal history of nicotine dependence; Z82.49 Family history of ischemic heart disease and other diseases of the circulatory system; Z98.1 Arthrodesis status; Z98.890 Other specified postprocedural states
CPT/HCPCS: 36415; 72131; 72148; 80053; 85025; 96372; 96374; 96375; 96376; 97162; 99284; G0378; J1040; J1170; J1885; J2270; U0003; U0005; G0379; 99285-25

== ENCOUNTER 2021-07-22 10:13 | Inpatient (IN) | payer MEDICARE ==
[~2021-07-22] VITALS: Ht 185.4 cm; Wt 92.0 kg
[~2021-07-22 10:13] MED LIST changes: +HYDR-2769 PO; +TIZA4TAB2 PO
[2021-07-22] MEDS ORDERED: KETOROLAC 30 MG/ML VIAL. IVP ONE (10:45)
[2021-07-22 10:55] LABS: BASO % 1 % (0-3); EOS # 0.1 x10^3/uL (0.0-0.7); EOS % 2 % (0-3); HEMATOCRIT 36.2 % (39.0-53.0); HEMOGLOBIN 12.2 g/dL (13.0-17.5); LYMPH # 0.9 x10^3/uL (1.0-4.8); LYMPH % 14 % (24-48); MEAN CORPUSCULAR HEMOGLOBIN 31 pg (25-35); MEAN CORPUSCULAR HGB CONC 34 g/dL (31-37); MEAN CORPUSCULAR VOLUME 91 fL (79-100); MONO # 0.8 x10^3/uL (0.0-1.1); MONO % 13 % (0-9); NEUT # 4.5 x10^3/uL (1.8-7.7); NEUT % 70 % (31-73); PLATELET COUNT 225 x10^3/uL (140-400); RED BLOOD COUNT 3.98 x10^6/uL (4.30-5.70); WHITE BLOOD COUNT 6.4 x10^3/uL (4.0-11.0)
[2021-07-22 11:09] LABS: GFR 74.3
--- NOTE | 2021-07-22 11:09 | PHYS DOC ---
Past Medical History Additional Past Medical Histor: back pain Past Surgical History: Coronary Bypass Surgery, Other Additional Past Surgical Histo: Hernia Smoking Status: Never Smoker Alcohol Use: Heavy General Adult EDM: Chief Complaint: BACK PAIN OR INJURY HPI: HPI: Patient is a 66 year old male presents the emergency department complaining of severe low back pain after a trip and fall yesterday approximately 1600. Patient reports 10 out of 10 mid to lower back pain. Reports requiring L2 fracture surgery scheduled this Saturday at 7 AM here at [facility]. Patient reports drinking 1/2 pint of vodka and taking 1 [place] for pain prior to arrival, states no pain relief. Patient denies loss of bowel or bladder continence, denies urinary retention, denies numbness or tingling to his buttocks or genital area. Patient was brought in by EMS, EMS reports patient ambulated to the ambulance for transport to the emergency department limousine driver noted patient ambulated with limp on right. Patient has no further physical complaints or physical concerns. Review of Systems: Review of Systems: 14 body systems of review of systems have been reviewed. See HPI for pertinent positives and negative responses, otherwise all other systems are negative, nonpertinent or noncontributory. Constitutional: Negative except as outlined in HPI above. Skin: Negative except as outlined in HPI above. Eyes: Negative except as outlined in HPI above. HENT: Negative except as outlined in HPI above. Respiratory: Negative except as outlined in HPI above. Cardiovascular: Negative except as outlined in HPI above. GI: Negative except as outlined in HPI above. : Negative except as outlined in HPI above. Musculoskeletal: Negative except as outlined in HPI above. Integument: Negative except as outlined in HPI above. Neurologic: Negative except as outlined in HPI above. Endocrine: Negative except as outlined in HPI above. Lymphatic: Negative except as outlined in HPI above. Psychiatric: Negative except as outlined in HPI above. Heart Score: C/O Chest Pain: No Risk Factors: Risk Factors: DM, Current or recent (<one month) smoker, HTN, HLP, family history of CAD, obesity. Risk Scores: Score 0 - 3: 2.5% MACE over next 6 weeks - Discharge Home Score 4 - 6: 20.3% MACE over next 6 weeks - Admit for Clinical Observation Score 7 - 10: 72.7% MACE over next 6 weeks - Early Invasive Strategies Current Medications: Current Medications Medications (Trade) Dose Ordered Sig/Zahra Start Time Stop Time Status Last Admin Dose Admin Ketorolac Tromethamine (Toradol 30mg Vial) 30 mg 1X ONCE 07/22/21 10:45 07/22/21 10:46 DC 07/22/21 10:51 30 MG Allergies: Allergies: Allergies Coded Allergies Type Severity Reaction Last Updated Verified No Known Drug Allergies 06/29/19 No Physical Exam: PE: Constitutional: Well developed, well nourished, no acute distress, non-toxic appearance. 66-year-old male in no apparent distress. Strong smell of EtOH from breath, patient slurring words. HENT: Normocephalic, atraumatic. Eyes: Conjunctiva normal, no discharge. Neck: Normal range of motion, no stridor. Cardiovascular: No cyanosis appreciated, distal cap refill less than 2 seconds. Lungs & Thorax: Patient is in no respiratory distress, no audible adventitious lung sounds appreciated. Abdomen: Nontender, no abnormalities noted. Skin: Warm, dry, no erythema, no rash. Back: Tenderness to palpation midline spine lower thoracic through lumbar area to palpation, no deformities appreciated, no crepitus appreciated, no bruising appreciated. Extremities: No tenderness, no cyanosis, no clubbing, ROM intact, no edema. Neurologic: Alert and oriented X 3, normal motor function, normal sensory f unction, no focal deficits noted. Slurred speech during conversation. Psychologic: Affect normal, judgement abnormal related to drinking vodka with opiate use for pain control, mood normal. Current Patient Data: Labs: Laboratory Tests Test 07/22/21 10:52 White Blood Count 6.4 x10^3/uL Red Blood Count 3.98 x10^6/uL Hemoglobin 12.2 g/dL Hematocrit 36.2 % Mean Corpuscular Volume 91 fL Mean Corpuscular Hemoglobin 31 pg Mean Corpuscular Hemoglobin Concent 34 g/dL Red Cell Distribution Width 15.0 % Platelet Count 225 x10^3/uL Neutrophils (%) (Auto) 70 % Lymphocytes (%) (Auto) 14 % Monocytes (%) (Auto) 13 % Eosinophils (%) (Auto) 2 % Basophils (%) (Auto) 1 % Neutrophils # (Auto) 4.5 x10^3/uL Lymphocytes # (Auto) 0.9 x10^3/uL Monocytes # (Auto) 0.8 x10^3/uL Eosinophils # (Auto) 0.1 x10^3/uL Basophils # (Auto) 0.0 x10^3/uL Sodium Level 125 mmol/L Potassium Level 4.0 mmol/L Chloride Level 89 mmol/L Carbon Dioxide Level 28 mmol/L Anion Gap 8 Blood Urea Nitrogen 14 mg/dL Creatinine 1.0 mg/dL Estimated GFR (Cockcroft-Gault) 74.3 BUN/Creatinine Ratio 14 Glucose Level 80 mg/dL Calcium Level 9.0 mg/dL Total Bilirubin 0.4 mg/dL Aspartate Amino Transf (AST/SGOT) 24 U/L Alanine Aminotransferase (ALT/SGPT) 21 U/L Alkaline Phosphatase 85 U/L Total Protein 7.0 g/dL Albumin 3.0 g/dL Albumin/Globulin Ratio 0.8 Ethyl Alcohol Level < 10 mg/dL Current Medications Medications (Trade) Dose Ordered Sig/Zahra Route PRN Reason Start Time Stop Time Status Last Admin Dose Admin Ketorolac Tromethamine (Toradol 30mg Vial) 30 mg 1X ONCE IVP 07/22/21 10:45 07/22/21 10:46 DC 07/22/21 10:51 Morphine Sulfate (Morphine Sulfate) 5 mg 1X ONCE IV 07/22/21 14:30 07/22/21 14:31 DC 07/22/21 14:30 Morphine Sulfate (Morphine Sulfate) 5 mg 1X ONCE IV 07/22/21 14:30 07/22/21 14:31 DC 07/22/21 14:33 Morphine Sulfate (Morphine Sulfate) 5 mg PRN Q2HR PRN IVP PAIN 07/22/21 14:45 07/23/21 14:44 UNV Acetaminophen (Tylenol) 650 mg PRN Q4HRS PRN PO FEVER > 100.3'F 07/22/21 14:45 07/23/21 14:44 UNV Laboratory Tests Test 07/22/21 10:52 White Blood Count 6.4 x10^3/uL (4.0-11.0) Red Blood Count 3.98 x10^6/uL (4.30-5.70) L Hemoglobin 12.2 g/dL (13.0-17.5) L Hematocrit 36.2 % (39.0-53.0) L Mean Corpuscular Volume 91 fL (79-100) Mean Corpuscular Hemoglobin 31 pg (25-35) Mean Corpuscular Hemoglobin Concent 34 g/dL (31-37) Red Cell Distribution Width 15.0 % (11.5-14.5) H Platelet Count 225 x10^3/uL (140-400) Neutrophils (%) (Auto) 70 % (31-73) Lymphocytes (%) (Auto) 14 % (24-48) L Monocytes (%) (Auto) 13 % (0-9) H Eosinophils (%) (Auto) 2 % (0-3) Basophils (%) (Auto) 1 % (0-3) Neutrophils # (Auto) 4.5 x10^3/uL (1.8-7.7) Lymphocytes # (Auto) 0.9 x10^3/uL (1.0-4.8) L Monocytes # (Auto) 0.8 x10^3/uL (0.0-1.1) Eosinophils # (Auto) 0.1 x10^3/uL (0.0-0.7) Basophils # (Auto) 0.0 x10^3/uL (0.0-0.2) Laboratory Tests 07/22/21 10:52 Vital Signs: Vital Signs Date Time Temp Pulse Resp B/P (MAP) Pulse Ox O2 Delivery O2 Flow Rate FiO2 07/22/21 10:20 98.6 75 18 111/71 (84) 97 Room Air 98.6 EKG: EKG: [] Radiology/Procedures: Radiology/Procedures: PATIENT: ELIJAH OZUNA ACCOUNT: [id number] : 1955 LOCATION: ER AGE: 66 SEX: M EXAM STATUS: REG ER ORD. PHYSICIAN: TEJAS OLIVA APRN REASON: fall, severe pain PROCEDURE: CT THORACIC SPINE WO CONTRAST STUDY: 1. CT thoracic spine without contrast 2. CT lumbar spine without contrast INDICATION: Fall. Severe pain. COMPARISON: CT lumbar spine 07/10/2021; lumbar spine MRI 07/11/2021 TECHNIQUE: Axial CT imaging of the thoracic and lumbar spine performed without the use of contrast. Coronal and sagittal reformats were obtained. One or more of the following individualized dose reduction techniques were utilized for this examination: 1. Automated exposure control 2. Adjustment of the mA and/or kV according to patient size 3. Use of iterative reconstruction technique. FINDINGS: Thoracic spine: No acute fracture identified throughout the thoracic spine. Mild sigmoid curvature. No advanced thoracic spine discogenic arthrosis. Scattered ventral osteophytes. Several levels with mild facet arthrosis. No traumatic facet malalignment. Relatively advanced discogenic arthrosis at C6-C7. No evidence for significant narrowing of the central canal. No paraspinous hematoma. Large hiatal hernia. Scattered calcific atherosclerosis. Reticular opacities at the left more so than right lung bases favored mostly secondary to volume loss. A component of scarring/fibrosis may be present as well. Bilateral renal cystic foci which do not appear complex noting the absence of contrast. Lumbar spine: Unchanged chronic superior endplate compression at L1 and L5. Dorsal fusion construct at L4-L5 with intact and well fixated hardware. Unchanged degree of L4 on L5 anterolisthesis. Acute on subacute/chronic L2 compression fracture with a greater degree of height loss and fracture extension is now seen to extend through the inferior cortex. Previously height loss was approximately 50% but now up to close to 70%. The degree of osseous retropulsion has slightly increased but there is no severe osseous narrowing of the canal. Vertically oriented lucency at the base of the right L2 pedicle and offset at the superior cortex appears to been present previously going against a newly developed pedicle fracture. No newly developed vertebral body fracture elsewhere. There is again osseous neural foraminal narrowing on the right at L4-L5 and a degree of central canal stenosis at L4-L5 without apparent change. Redemonstrated short segment ectasia of the infrarenal abdominal aorta approaching the bifurcation which is partially imaged but measures up to 2.8 cm. Also redemonstrated is aneurysmal dilatation of the right common iliac artery measuring up to 4.3 x 4.1 cm. Colonic diverticuli. IMPRESSION: Thoracic spine: 1. No acute fracture identified throughout the thoracic spine. 2. Scattered degenerative changes are relatively mild without evidence for significant thoracic canal stenosis. Lumbar spine: 1. Acute on subacute/chronic L2 fracture now with a fracture cleft extending through both the superior and inferior cortices and with increased height loss of up to 70% while previously 50%. Faintly increased extent of osseous retropulsion but there is no severe osseous central canal narrowing. 2. Chronic/unchanged L1 and L5 superior endplate compression deformities and extent of spondylosis. Intact and well fixated L4-L5 dorsal fusion construct. 3. Unchanged right common iliac artery aneurysm with maximum luminal dimensions of 4.3 x 4.1 cm. Electronically signed by: VICENTE AVILA MD (07/22/2021 11:56 AM) [id number] Course & Med Decision Making: Course & Med Decision Making Pertinent Labs and Imaging studies reviewed. (See chart for details) 66-year-old male, vital signs reviewed, presents to the emergency department concerning severe mid to low back pain after a stumble and fall yesterday 1600. Patient's physical examination concerning for possible spinal injury, will order CT T and L-spine without contrast. Patient does complain of 10 out of 10 pain, however did reveal drinking half pint of vodka and taken Vicodin prior to arrival without pain relief. Will give IV Toradol for pain. CT T and L-spine concerning for L2 acute on chronic fracture, patient has been given 10 mg of morphine for pain, continues to complain of 10 out of 10 pain. Discussed with patient will call primary care physician for admission for L2 fracture and intractable back pain, patient is amenable to this planning. Called and discussed patient case and ED work-up with patient's primary care physician Dr. Everette Prabhakar who agrees patient's case warrants admission to the MedSurg unit, Dr. Prabhakar requested consult for interventional radiology, patient awaiting room assignment from warehouse engineer. Garrett Disclaimer: Garrett Disclaimer: This electronic medical record was generated, in whole or in part, using a voice recognition dictation system. Departure Departure Impression: Primary Impression: Compression fracture of L2 Qualified Codes: S32.020A - Wedge compression fracture of second lumbar vertebra, initial encounter for closed fracture Additional Impression: Intractable low back pain Disposition: HOME / SELF CARE / HOMELESS Admitting Physician: Tamiko Prabhakar (Admit to MedSurg unit.) Condition: GOOD Referrals: TAMIKO PRABHAKAR MD (PCP) TEJAS OLIVA APRN Jul 22, 2021 11:09
[2021-07-22 11:15] LABS: ALBUMIN/GLOBULIN RATIO 0.8 (1.0-1.7); TOTAL BILIRUBIN 0.4 mg/dL (0.2-1.0)
--- NOTE | 2021-07-22 11:59 | RAD ---
STUDY: 1. CT thoracic spine without contrast 2. CT lumbar spine without contrast INDICATION: Fall. Severe pain. COMPARISON: CT lumbar spine 07/10/2021; lumbar spine MRI 07/11/2021 TECHNIQUE: Axial CT imaging of the thoracic and lumbar spine performed without the use of contrast. C oronal and sagittal reformats were obtained. One or more of the following individualized dose reduction techniques were utilized for this examinat ion: 1. Automated exposure control 2. Adjustment of the mA and/or kV according to patient size 3. Use of iterative reconstruction technique. FINDINGS: Thoracic spine: No acute fracture identified throughout the thoracic spine. Mild sigmoid curvature. No advanced thora cic spine discogenic arthrosis. Scattered ventral osteophytes. Several levels with mild facet arthros is. No traumatic facet malalignment. Relatively advanced discogenic arthrosis at C6-C7. No evidence f or significant narrowing of the central canal. No paraspinous hematoma. Large hiatal hernia. Scattered calcific atherosclerosis. Reticular opacitie s at the left more so than right lung bases favored mostly secondary to volume loss. A component of s carring/fibrosis may be present as well. Bilateral renal cystic foci which do not appear complex noti ng the absence of contrast. Lumbar spine: Unchanged chronic superior endplate compression at L1 and L5. Dorsal fusion construct at L4-L5 with i ntact and well fixated hardware. Unchanged degree of L4 on L5 anterolisthesis. Acute on subacute/chronic L2 compression fracture with a greater degree of height loss and fracture e xtension is now seen to extend through the inferior cortex. Previously height loss was approximately 50% but now up to close to 70%. The degree of osseous retropulsion has slightly increased but there i s no severe osseous narrowing of the canal. Vertically oriented lucency at the base of the right L2 p edicle and offset at the superior cortex appears to been present previously going against a newly dev eloped pedicle fracture. No newly developed vertebral body fracture elsewhere. There is again osseous neural foraminal narrowing on the right at L4-L5 and a degree of central canal stenosis at L4-L5 without apparent change. Redemonstrated short segment ectasia of the infrarenal abdominal aorta approaching the bifurcation wh ich is partially imaged but measures up to 2.8 cm. Also redemonstrated is aneurysmal dilatation of th e right common iliac artery measuring up to 4.3 x 4.1 cm. Colonic diverticuli. IMPRESSION: Thoracic spine: 1. No acute fracture identified throughout the thoracic spine. 2. Scattered degenerative changes are relatively mild without evidence for significant thoracic cruz l stenosis. Lumbar spine: 1. Acute on subacute/chronic L2 fracture now with a fracture cleft extending through both the superio r and inferior cortices and with increased height loss of up to 70% while previously 50%. Faintly inc reased extent of osseous retropulsion but there is no severe osseous central canal narrowing. 2. Chronic/unchanged L1 and L5 superior endplate compression deformities and extent of spondylosis. I ntact and well fixated L4-L5 dorsal fusion construct. 3. Unchanged right common iliac artery aneurysm with maximum luminal dimensions of 4.3 x 4.1 cm. Electronically signed by: VICENTE AVILA MD (07/22/2021 11:56 AM) [id number]
[2021-07-22] MEDS ORDERED: MORPHINE SULFATE 10 MG/ML VIAL. IV ONE ×2 (14:30)
[2021-07-22] MEDS ORDERED: ACETAMINOPHEN 325 MG TABLET. PO PRN (14:45)
[2021-07-22 15:44] VITALS: BP 158/85
[2021-07-22] MEDS ORDERED: TOPI50TA8 PO (16:22)
[2021-07-22] MEDS: MORPHINE SULFATE 10 MG/ML VIAL. IV PRN ×2 (18:14→20:37)
[2021-07-22 19:00] VITALS: BP 104/61
[2021-07-22] MEDS ORDERED: FLU VACC QUAD 21-22 (6MOS+) PF 0.5 ML SYRINGE. VAX IM ONE (20:00)
[2021-07-22 23:00] VITALS: BP 140/86
[2021-07-23] MEDS: MORPHINE SULFATE 10 MG/ML VIAL. IV PRN ×5 (00:09→16:31)
[2021-07-23 02:52] VITALS: BP 105/69
[2021-07-23 07:25] VITALS: BP 131/88
[2021-07-23 11:00] VITALS: BP 120/79
[2021-07-23] MEDS ORDERED: LISINOPRIL 5 MG TABLET. PO SCH (11:00)
[2021-07-23] MEDS ORDERED: ASPIRIN CHEWABLE 81 MG TABLET. PO SCH (11:00)
[2021-07-23] MEDS: PANTOPRAZOLE 40 MG TABLET.DR. PO SCH ×2 (11:54→16:27)
--- NOTE | 2021-07-23 11:54 | PDOC ---
Provider Note Date of Service: DATE: 07/23/21 TIME: 11:51 Provider Note [id number] Justifications for Admission Other Justification KEVIN DOWNS MD Jul 23, 2021 11:54
[2021-07-23] MEDS: TOPIRAMATE 25 MG TABLET. PO SCH (11:55)
[2021-07-23] MEDS: CALCIUM CARBONATE 500 MG TAB.CHEW PO PRN ×2 (11:55→15:03)
[2021-07-23] MEDS: METOPROLOL TART IMMED RELEASE 25 MG TABLET. PO SCH (11:55)
[2021-07-23] MEDS: PRIMIDONE 250 MG TABLET PO SCH ×2 (11:55→19:28)
[2021-07-23] MEDS: IV DEXTROSE 5% - 0.9 % NACL 1,000 ML IV SCH (12:02)
[2021-07-23] MEDS: HYDROcodone/APAP 10/325 1 TAB TABLET PO PRN ×2 (12:07→19:28)
--- NOTE | 2021-07-23 12:36 | HP ---
ADMIT DATE: 07/22/2021 CHIEF COMPLAINT: Back pain with an L2 fracture. HISTORY OF PRESENT ILLNESS: A 66-year-old white male, patient of Dr. Prabhakar had a lifting injury about two and a half weeks ago, felt a pop in his back and subsequent x-ray showed a 50% L2 fracture. He had another fall at home recently. Apparently, per the ER the fracture has progressed to about 70%. He is previously scheduled to have a kyphoplasty done tomorrow here and is admitted for increasing pain and observation. His sodium was noted to be 125 in the ER as well and he has a history of low sodium, but normally the lowest sodium is around 132 and etiology is unknown. PAST MEDICAL HISTORY: Multiple meds listed per the chart, no diuretics. No other serious known medical problems. ALLERGIES: No allergies. SOCIAL HISTORY: Retired, , nondrinker, smoker to my knowledge. FAMILY HISTORY: Unremarkable. REVIEW OF SYSTEMS: Unremarkable. OBJECTIVE: ENT: Mild plethoric facies, otherwise normal. NECK: No nodes, masses, or bruits. LUNGS: Clear without tachypnea. CARDIOVASCULAR: Regular rate, mild tachycardia. No murmur. ABDOMEN: Benign, soft, nontender. BACK: Not examined. EXTREMITIES: Decreased pedal pulses bilaterally, no edema. No joint or skin lesions. NEUROLOGIC: Physiologic and nonfocal. ASSESSMENT: 1. Traumatic L2 fracture, exacerbated by recent fall. He has no lumbar radicular symptoms present. 2. Chronic hyponatremia. Etiology may be due to alcohol use or perhaps medication such as the lisinopril. Sodium level is worse than usual. PLAN: We will hold lisinopril for now. IV saline to assist in recovery. Urinary sodium check, pain control and neurosurgical consultation given the severity of the fracture as well. PEDRO/JOANNA DR: PEDRO/aleks TID: [id number]
[2021-07-23] MEDS: clonazePAM 0.5 MG TABLET PO SCH ×2 (13:52→19:28)
[2021-07-23 15:18] VITALS: BP 152/94
[2021-07-23 19:00] VITALS: BP 111/73
[2021-07-23] MEDS: ATORVASTATIN CALCIUM 40 MG TABLET. PO SCH (19:28)
[2021-07-23 22:57] VITALS: BP 90/62
[2021-07-24] VITALS (8 sets, daily range): BP systolic 96–145; BP diastolic 62–88
[2021-07-24] MEDS: MORPHINE SULFATE 10 MG/ML VIAL. IV PRN ×6 (00:27→20:19)
[2021-07-24] MEDS: HYDROcodone/APAP 10/325 1 TAB TABLET PO PRN ×3 (01:33→22:19)
[2021-07-24] MEDS: IV DEXTROSE 5% - 0.9 % NACL 1,000 ML IV SCH ×2 (04:25→21:18)
[2021-07-24 07:37] LABS: CALCIUM 9.4 mg/dL (8.5-10.1); GFR 74.3; POTASSIUM 4.3 mmol/L (3.5-5.1)
--- NOTE | 2021-07-24 10:28 | NUR ---
SW following. Discussed with RN, pt from home with , room air, NPO. Pt having a kyphoplasty today. RN advised no SW needs at this time. SW will continue to follow.
[2021-07-24] MEDS ORDERED: LIDOCAINE WITH 8.4% SOD BICARB 3 ML DISP.SYRIN. IJ ONE (10:30)
[2021-07-24] MEDS ORDERED: CONTRAST GIVEN. MC PRN (10:30)
[2021-07-24] MEDS ORDERED: fentaNYL PF VIAL 250 MCG/5 ML VIAL IV ONE (10:30)
[2021-07-24] MEDS ORDERED: IOHEXOL 240 MG/ML 50ML VIAL. IJ ONE (10:30)
[2021-07-24] MEDS ORDERED: MIDAZOLAM HCL/PF 5 MG/5 ML VIAL. IV ONE (10:30)
--- NOTE | 2021-07-24 11:50 | NUR ---
Pt returning from IR. Dressing left lower back CDI; Frequent VS initiated. IVF infusing. Water pitcher filled. Call light within reach.
--- NOTE | 2021-07-24 12:07 | PN ---
DATE: 07/24/2021 LOCATION: He is in room 426. SUBJECTIVE: This 66-year-old male hospitalized for severe back pain due to progression of lumbar compression fracture. He is awake and alert and hoping to have definitive procedure done today. He remains on IV morphine and is very uncomfortable, particularly when trying to sit or stand. OBJECTIVE: VITAL SIGNS: Stable. He is afebrile. GENERAL: He is awake and alert. CHEST: Clear. HEART: Regular. ABDOMEN: Benign. IMPRESSION: 1. Acute lumbar compression fracture with intractable pain. 2. Acute on subacute L2 fracture. PLAN: Vertebral kyphoplasty hopefully later today with hopefully resolution of pain to where he can be dismissed and follow up at home following that. NIDHI DR: Katie TID: [id number]
[2021-07-24] MEDS: clonazePAM 0.5 MG TABLET PO SCH ×3 (12:31→20:18)
[2021-07-24] MEDS: PRIMIDONE 250 MG TABLET PO SCH ×2 (12:32→20:18)
[2021-07-24] MEDS: PANTOPRAZOLE 40 MG TABLET.DR. PO SCH ×2 (12:34→17:10)
[2021-07-24] MEDS: TOPIRAMATE 25 MG TABLET. PO SCH (17:10)
[2021-07-24] MEDS: METOPROLOL TART IMMED RELEASE 25 MG TABLET. PO SCH (17:12)
[2021-07-24] MEDS: ATORVASTATIN CALCIUM 40 MG TABLET. PO SCH (20:18)
[2021-07-25] MEDS: MORPHINE SULFATE 10 MG/ML VIAL. IV PRN ×2 (00:52→04:18)
[2021-07-25 03:00] VITALS: BP 129/76
[2021-07-25 07:00] VITALS: BP 158/104
[2021-07-25] MEDS: TOPIRAMATE 25 MG TABLET. PO SCH (07:40)
[2021-07-25] MEDS: PRIMIDONE 250 MG TABLET PO SCH (07:40)
[2021-07-25] MEDS: clonazePAM 0.5 MG TABLET PO SCH (07:41)
[2021-07-25] MEDS: HYDROcodone/APAP 10/325 1 TAB TABLET PO PRN (07:41)
[2021-07-25 07:42] VITALS: BP 158/104
[2021-07-25] MEDS: METOPROLOL TART IMMED RELEASE 25 MG TABLET. PO SCH (07:42)
--- NOTE | 2021-07-25 09:23 | DS ---
DATE OF DISCHARGE: 07/25/2021 PRIMARY DIAGNOSIS: L2 compression fracture with inability to do self care. ADDITIONAL DIAGNOSES: Coronary artery disease, hyponatremia. CHIEF COMPLAINT/HISTORY OF PRESENT ILLNESS: This 66-year-old male recently hospitalized with an L2 compression fracture, had another fall, making it worse on imaging. He was completely debilitated. SUMMARY OF STAY: The patient was admitted, pain was controlled, Interventional Radiology did kyphoplasty on him on the day prior to discharge, his pain was markedly decreased with the same, although he still felt like he had been pounded around on his back. He was able to get up to the chair and ambulate and it was felt he could be dismissed with outpatient followup. DISPOSITION: The patient is discharged to home. DIET: Regular diet. ACTIVITY: As tolerated. FOLLOWUP: Office in 2 weeks. DISCHARGE MEDICATIONS: Listed on the med rec and have been addressed. BEAN DR: Katie TID: [id number]
--- NOTE | 2021-07-25 09:52 | NUR ---
Pt discharged home with self care. Discharge instructions and medications discussed. Pt verbalized understanding. IV removed. Pt assisted to wheelchair and was secured in car with .
--- NOTE | 2021-07-26 11:54 | RAD ---
PROCEDURES: 1. Fluoroscopic guided L2 kyphoplasty. Clinical Indication: Patient is a 66-year-old male with a pathologic compression fracture of L2 secon kevin to bone demineralization/osteopenia with subsequent acute worsening of the fracture, now with mo rphology consistent with a stable burst fracture. Consent: The procedure was explained in its entirety to the patient or the patients designated repres entative by a member of the treatment team, including a discussion of the risks, benefits and commonl y accepted alternatives to the procedure, as well as the expected consequences of no therapy whatsoev er. Discussion of the risks included, but was not limited to, those that are most frequent and thos e that are rare but possibly severe or life-threatening, as well as the possibility of unforeseen com plications. The low back was prepped and draped using maximum sterile barrier technique. 1% lidocaine was adminis tered for local anesthesia. Fracture was evaluated under fluoroscopy. Using a left Unipedicular, appr oach a trocar needle was advanced into the posterior third of the L2 vertebral body. A balloon was de ployed in the central vertebral body. Cement delivery needle was advanced into the contralateral vert ebral body, and under careful biplane fluoroscopy, cement was slowly administered into the vertebral body. Once adequate filling of an achieved needles were removed and manual pressure was held. No imme diate complications were identified. Sedation: The procedure was performed under conscious sedation including continuous cardiopulmonary m onitoring via a dedicated sedation nurse. [id number] sedation time: 50 minutes Total fluoroscopy time: 7.2 min Dose area product: 44 Gycm2 Impression: L2 kyphoplasty Electronically signed by: North Salgado MD (07/26/2021 11:51 AM) [id number]
== END 2021-07-25 09:59 | disposition home or self-care (01) | DRG 516 ==
LOC: ER 10:13 → 4 NORTH 14:30 → ER 15:20
PROVIDERS: ADMIT Family Medicine; ATTEND Family Medicine
PROC: 0QS03ZZ Reposition Lumbar Vertebra, Percutaneous Approach (ICD-10-PCS; principal; 2021-07-24)
PROC: 0QU03JZ Supplement Lumbar Vertebra with Synthetic Substitute, Percutaneous Approach (ICD-10-PCS; 2021-07-24)
DX: S32.029A Unspecified fracture of second lumbar vertebra, initial encounter for closed fracture (principal); E87.1 Hypo-osmolality and hyponatremia; F17.200 Nicotine dependence, unspecified, uncomplicated; Z95.1 Presence of aortocoronary bypass graft; W01.0XXA Fall on same level from slipping, tripping and stumbling without subsequent striking against object, initial encounter; Y93.89 Activity, other specified; Y92.89 Other specified places as the place of occurrence of the external cause; Y99.8 Other external cause status
CPT/HCPCS: 22514; 36415; 72128; 72131; 80048; 80053; 84300; 85025; 85610; 90471; 90686; 96374; 96375; 99152; 99153; C1713; G0480; J0690; J1885; J2250; J2270; J3010; J3490; J7042; Q9966; 99285-25; G0378

== ENCOUNTER → 2021-08-16 | Outpatient (CLI) | payer MEDICARE ==
[2021-07-25 07:42] VITALS: BP 158/104
[~2021-08-16] MED LIST changes: -LISI-517 PO; +LISI5TAB15 PO; +TIZA-75 PO; -TIZA4TAB2 PO; +TOPI50TA8 PO
--- NOTE | 2021-08-16 14:07 | KCIC ---
INDICATION: Screening for osteopenia/osteoporosis. Reason: OSTEOPOROSIS, OSTEOARTHRITIS INVOLVING MU LTIPLE JOINTS / Spl. Instructions: / History: COMPARISON: None. TECHNIQUE: Bone densitometry was performed through the forearm this film and proximal femur. IMPRESSION: Forearm: BMD: 0.49 T-Score: -3.5 Range: Osteoporotic Proximal Femur: BMD: 0.64 T-Score: -2.6 Range: Osteoporotic World Health Organization Criteria for Bone Density: T-Score: > -1.0: Normal Range < -1.0 to -2.5: Osteopenic Range < -2.5: Osteoporotic Range Electronically signed by: Ruben Bethea MD (08/16/2021 2:05 PM) [id number]
== END ==
LOC: KCIC DEXA 12:48
PROVIDERS: ATTEND Family Medicine
DX: M81.0 Age-related osteoporosis without current pathological fracture (principal); M85.88 Other specified disorders of bone density and structure, other site; M89.49 Other hypertrophic osteoarthropathy, multiple sites
CPT/HCPCS: 77080; 77081